=== PATIENT | female | born 1980 | race Caucasian/White ===

== ENCOUNTER 2020-07-04 13:03 | Outpatient (RCR) | payer BC, MEDICAID, SELFPAY ==
[2020-07-04 13:38] LABS: Hemoglobin 12.4 g/dL (12.0-15.0)
[2020-07-05 11:13] LABS: Rapid Plasma Reagin Non-Reactive (NonReactive)
[2020-07-05] MEDS: RHO(D) IMMUNE GLOBULIN 300 MCG SYRINGE IM (11:22)
== END 2020-10-02 23:59 | disposition home or self-care (01) ==
LOC: ANHLAB 13:03
PROVIDERS: Visit Provider Obstetrics & Gynecology
DX: Z29.13 Encounter for prophylactic Rho(D) immune globulin (principal); O36.0130 Maternal care for anti-D [Rh] antibodies, third trimester, not applicable or unspecified; Z3A.00 Weeks of gestation of pregnancy not specified
CPT/HCPCS: 36415; 85014; 85018; 85461; 86592; 90384; 96372; J2790

== ENCOUNTER 2020-09-20 11:01 | Inpatient (IN) | payer BC, MEDICAID, SELFPAY ==
[2020-09-20] VITALS (9 sets, daily range): BP systolic 128–145; BP diastolic 64–88; PULSE 62–78; RESP 16; TEMP 36.8–37.3; O2SAT 97–99; BMI 39.1
--- NOTE | 2020-09-20 12:10 | LDADM ---
This patient, Augusta Mccarthy, was admitted to Labor/Delivery/Recovery 104 on 09/20/20 at 11:01. Plans for labor, pain management and were discussed with patient. Patient/family oriented to hospital policies and general routines including ID bracelet, bed and alarms, visiting hours, pain management, procedures, bathroom and other care routines, personal items, smoking policy, room service/diet and guest tray routines, infant security routines, call light, and visiting hours. Patient/Family are encouraged to report perceived risks to care and to ask questions if they do not understand what they are told or what they should do. See OBIX for further documentation.
[2020-09-20 12:13] LABS: Basophils Percent Auto 0.4 % (0.2-1.2); Eosinophils Absolute Auto 0.2 K/mm3 (0-0.3); Eosinophils Percent Auto 1.4 % (0-4.4); Hematocrit 42.3 % (37.0-47.0); Hemoglobin 14.1 g/dL (12.0-15.0); Immature Granulocyte Absolute 0.06 K/mm3 (0.00-0.031); Immature Granulocyte Percent A 0.6 % (0-0.5); Lymphocytes Absolute Auto 1.49 K/mm3 (0.9-3.2); Lymphocytes Percent Auto 13.8 % (18.3-44.2); Mean Corpuscular HGB Conc 33.3 g/dl (32-36); Mean Corpuscular Hemoglobin 29.6 pg (26-34); Mean Corpuscular Volume 88.7 fl (80-100); Mean Platelet Volume 10.4 fl (7.4-10.4); Monocytes Absolute Auto 0.8 K/mm3 (0.1-0.6); Monocytes Percent Auto 7.8 % (2.6-8.5); Neutrophils Absolute Auto 8.2 K/mm3 (1.3-6.7); Platelet Count Result 242 k/mm3 (150-375); Red Blood Count 4.77 M/mm3 (4.2-5.4); Red Cell Distribution Width 13.9 % (11.5-14.5); White Blood Count 10.8 K/mm3 (4.5-10.0)
[2020-09-20] MEDS: OXYTOCIN 30 UNITS/NS 500 ML 30 UNITS/500 ML BAG 999 UNITS IV CONT (12:44)
--- NOTE | 2020-09-20 12:51 | PM.OBPRVD ---
OB - Delivery Note Procedure Delivery date: 09/20/20 Procedure: vaginal delivery Intrapartal events: Precipitous Labor < 3 hours Induction method: none Delivery augmentation: rupture of membranes Delivery monitor: external FHT and external uterine Route of delivery: Episiotomy description: None Laceration Description: None Specimen: No Quantitative Blood Loss (ml): 96 Anesthesia type: None Disposition: other () [place] Baby Date of : 09/20/20 Time of : 12:41 Weeks of gestation at delivery: 39 gender: Female Weight (pounds): 6 Weight (ounces): 5 presentation: vertex position: Left Occiput Anterior Placenta delivery description: Spontaneous cord vessel description: 3 Vessels and Clamped/Cut score one minute: 8 score five minutes: 9 Narrative: LUZ, compound presentation with posterior arm up near face, delivered posterior arm and the rest of baby easily delivered mother and baby in stable condition
[2020-09-20] MEDS: OXYTOCIN 30 UNITS/NS 500 ML 30 UNITS/500 ML BAG 125 UNITS IV CONT (13:06)
[2020-09-20] MEDS: IBUPROFEN 600 MG TABLET PO (13:08)
--- NOTE | 2020-09-20 15:30 | PC.NURSE ---
Patient transferred to post room #285 via wheelchair. Support person present. Oriented to unit, room, information board, rooming in, admission packet and security measures. Patient verbalizes understanding.
[2020-09-21 06:20] LABS: Hematocrit 36.7 % (37.0-47.0); Hemoglobin 12.2 g/dL (12.0-15.0)
[2020-09-21] MEDS: LEVOTHYROXINE SODIUM 88 MCG TABLET PO (06:54)
[2020-09-21 07:15] VITALS: BP 121/75; PULSE 69; RESP 16; TEMP 36.7; O2SAT 98
[2020-09-21] MEDS: MULTIVIT/MIN/PREN/FOL AC/IRON TABLET 1 TAB PO (07:56)
[2020-09-21] MEDS: CYANOCOBALAMIN 1,000 MCG TABLET 5000 MCG PO (07:57)
[2020-09-21] MEDS: valACYclovir HCL 500 MG TABLET 1000 MG PO (07:58)
[2020-09-21] MEDS: IBUPROFEN 600 MG TABLET PO ×2 (12:40→20:28)
[2020-09-21] MEDS: RHO(D) IMMUNE GLOBULIN 300 MCG SYRINGE IM (16:30)
[2020-09-21 19:55] VITALS: BP 146/82; PULSE 66; RESP 16; TEMP 36.7; O2SAT 99
--- NOTE | 2020-09-22 05:06 | PC.NURSE ---
09/21/2020 @ 1999 Patient viewed the discharge video Mother & Baby Care, The First Two Weeks . Patient was given the opportunity and encouraged to ask questions. Patient verbalized understanding of information shared and has been given the mother/baby guide for home reference.
[2020-09-22 07:11] VITALS: BP 120/68; PULSE 70; RESP 16; TEMP 36.4; O2SAT 98
[2020-09-22] MEDS: LEVOTHYROXINE SODIUM 88 MCG TABLET PO (07:11)
[2020-09-22] MEDS: MULTIVIT/MIN/PREN/FOL AC/IRON TABLET 1 TAB PO (07:12)
[2020-09-22] MEDS: DOCUSATE SODIUM 100 MG CAPSULE PO (07:12)
[2020-09-22] MEDS: valACYclovir HCL 500 MG TABLET 1000 MG PO (07:14)
--- NOTE | 2020-09-22 10:55 | PM.OBPNVD ---
OB - PN: Subj Subjective Date/time seen: 09/22/20 10:55 Patient comments: no complaints baby status: doing well OB - PN: Obj Data Labs CBC & Chem 7: 09/21/20 03:40 OB - PN A/P Plan day: 2 Plan: routine care and discharge home (F/U in 1 week for bp check) Comments: No history of hypertension however she has had a few slightly elevated blood pressures. No symptoms. PIH precautions given. Return to office in 1 week for bp check. Time Spent With Patient Time: Total time spent is greater than 50% in coordination of care (as documented) at patient's floor/unit and/or counseling patient: Time with patient: less than 15 minutes Review of Systems Review of Systems: All systems reviewed & are unremarkable except as noted in HPI and below Exam Narrative: Exam Narrative: Fundus firm and vaginal flow controlled. No lower ext redness, warmth, or edema. Negative homans. Denies h/a, v/d or e/p. Reflexes normal. Const: General: comfortable Chest: Breast/axilla inspection: normal inspection of the breasts Resp: Effort & Inspection: normal respiratory effort Cardio: Rate: regular rate GI: GI Palp: Yes Soft to palpation Psych: Appearance: grossly normal Affect: normal affect Attitude: cooperative Thought content: Yes Normal thought content present Judgement: Good judgement present (Psych)
--- NOTE | 2020-09-22 11:18 | P.DS_ITS ---
DS: Admitting Diagnosis Admitting Diagnosis Admitting Diagnosis: Contractions OB - DS: Summary OB Procedures : None OB Procedures Intrapartum: Spontaneous Vag Delivery OB Procedures: : None Time Spent with Patient Time attestation: Total time spent providing and/or coordinating discharge services: Discharge Plan Discharge Attending physician on discharge: Kamille Frausto Discharging Clinician: Kamille Frausto Patient Disposition: Home, Self-Care Activity: pelvic rest Diet: as tolerated Patient Instructions: Antibiotic Form Stand Alone Forms: General Discharge Information Follow-up/Referrals: Debbi Diaz CNM [Certified Nurse Refractory Grinder Operator] - Discharge Medications: Continued valacyclovir 1 gram Tablet 1,000 mg PO DAILY RF: 0 levothyroxine 88 mcg Tablet 88 mcg PO DAILY RF: 0 #2 Tablet 1 tablet PO DAILY RF: 0 mecobalamin (vitamin B12) 5,000 mcg Tablet,Disintegrating 5,000 mcg PO RF: 0 Date of admission: 09/20/20 11:01 Primary Care Provider: PHYSICIAN,AREA REPRESENTATIVE Admitting Provider: Cari Morales Attending physician on admission: Cari Morales Condition: Stable
[2020-09-23 09:35] VITALS: BP 141/73; PULSE 82; RESP 20; TEMP 36.9; O2SAT 100
[2020-09-23 12:07] LABS: Rapid Plasma Reagin Non-Reactive (NonReactive)
== END 2020-09-22 12:36 | disposition home or self-care (01) | DRG 807 ==
LOC: ANHLDR 11:34 → ANHOB2 15:36
PROVIDERS: Advanced Practice Midwife; Admitting Provider Obstetrics & Gynecology; Visit Provider Obstetrics & Gynecology
DX: O62.3 Precipitate labor (principal); Z37.0 Single live birth; O32.6XX0 Maternal care for compound presentation, not applicable or unspecified; Z3A.39 39 weeks gestation of pregnancy
CPT/HCPCS: 36415; 85014; 85018; 85025; 85461; 86592; 86850; 86900; 86901; 90384; A9270; J2590; J2790

== ENCOUNTER 2024-09-11 16:19 | Emergency (ER) | payer BC, MEDICAID, SELFPAY ==
[2024-09-11 16:31] VITALS: BP 121/77; PULSE 81; RESP 18; TEMP 36.8; O2SAT 100
--- NOTE | 2024-09-11 16:57 | ED_ITS ---
HPI - Female Genitourinary General Chief complaint: Urogenital-Female Stated complaint: uti symptoms and cold Time Seen by Provider: 09/11/24 16:20 Source: patient Mode of arrival: ambulatory Limitations: no limitations History of Present Illness HPI Narrative: Patient is a 44-year-old female who presents with 1 week of malodorous her, cloudy and burning with urination. Also has intermittent right lower back pain. Also had congestion since Wednesday with fever of 100.7. Has not taken anything for upper respiratory symptoms. Denies any sore throat, cough, nausea, vomiting, diarrhea. MD elicited complaint: dysuria Related Data Home Medications Medication Instructions Recorded Confirmed levothyroxine 88 mcg tablet 88 mcg PO DAILY 09/09/20 09/11/24 valacyclovir 1 gram tablet 1,000 mg PO DAILY 09/09/20 09/11/24 olmesartan 5 mg tablet 5 mg DAILY 09/11/24 09/11/24 phentermine 15 mg capsule 15 mg DAILY 09/11/24 09/11/24 Allergies Allergy/AdvReac Type Severity Reaction Status Date / Time latex Allergy Mild Rash Verified 09/11/24 16:41 Penicillins Allergy Mild Hives / Verified 09/11/24 16:41 Red Face Sulfa (Sulfonamide Allergy Mild Rash Verified 09/11/24 16:41 Antibiotics) penicillin G Allergy Unknown Unknown Verified 09/11/24 16:41 Review of Systems Review of Systems: All systems reviewed & are unremarkable except as noted in HPI and below Constitutional: Constitutional: Denies chills, Denies fever(s), Denies headache(s), Denies malaise and Denies weakness Eyes: Eyes: Denies change in vision, Denies eye discharge and Denies irritation ENT: Denies otalgia, Denies headache(s), Reports nasal congestion, Denies nasal discharge, Denies sinus pain and Denies sore throat Cardiovascular: Cardiovascular: Denies chest pain, Denies edema, Denies palpitations and Denies dyspnea Respiratory: Respiratory: Denies cough and Denies dyspnea Gastrointestinal: Gastrointestinal: Denies abdominal pain, Denies diarrhea, Denies nausea and Denies vomiting Genitourinary: Genitourinary: Denies hematuria, Reports dysuria and Denies fla nk pain Musculoskeletal: Musculoskeletal: Denies back pain and Denies numbness Integumentary/Breasts: Skin/Breast: Denies pruritus and Denies rash Neurologic: Denies headache(s), Denies numbness and Denies weakness Psychiatric: Psychiatric: Reports no additional psychiatric complaints Endocrine: Endocrine: Denies palpitations PMFSH Family History Family History Mother Hypertension Father High cholesterol Daughter MRSA (methicillin resistant Staphylococcus aureus) Mother Patient's mother is in good health Cerebrovascular accident Father Patient's father is in good health Sibling Patient's brother is in good health Social History Social History Smoking status: Never smoker Alcohol intake: never Substance use: never Do You Feel Safe in your Home?: Yes Lack of Transportation: No Lack of Food: Sometimes True Current Housing: I Have Housing Concerned About Future Housing: No Difficulty Paying Gas/Electric Bills: YES Difficulty Paying for Meds: No Currently Unemployed: No Education: High School Diploma/GED Difficulty w/ Childcare or Family Care: No Living arrangements: with family Gender identity (if verbalized by the patient): Female Sexual Orientation (if Verbalized by the Patient): Straight or Heterosexual Spiritual care concerns: No Comments At time of signature, agree with nursing past medical, surgical, social and family history. There is no relevant family history pertinent to the presenting complaint. Exam Const: General: cooperative, healthy appearing, comfortable, no acute distress and well nourished Nutritional Appearance: well nourished Orientation/consciousness: patient oriented x3 HENMT: Head: normocephalic and atraumatic Ears: external ears normal Face/Nose/Sinus: Normal external nose present, Normal nares present and normal facial exam Face and sinus: normal facial exam Eyes: General: appearance normal, both eyes and all related structures Pupils: Equal, round and reactive pupils present EOM: EOMs intact bilaterally Neck: Neck: normal visual inspection, full ROM and supple Chest: Chest palpation & inspection: normal inspection of the chest Resp: Effort & Inspection: normal respiratory effort and able to speak in complete sentences Cardio: Rate: regular rate Rhythm: regular rhythm GI: Inspection: normal to inspection GI Palp: No abdominal tenderness and Yes Soft to palpation : General: Yes no CVA tenderness Back/Spine/Pelvis: Back: no CVA tenderness Skin: General skin exam: normal color and no rashes or lesions noted Neuro: General: patient oriented x3 and moves all extremities Cranial nerves: Yes Equal, round and reactive pupils present Extrem: General: normal to inspection and full ROM Psych: Appearance: grossly normal and well kempt Course Course Emergency Course: Patient is aware of diagnosis, understands and agrees to treatment plan. Anticipatory guidance given. Patient agrees to follow-up as directed and is aware of reasons to seek care at the emergency department. Portions of this record may have been created with voice recognition software Level of Care: Express Care Visit Vital Signs Vital signs: Vital Signs Temperature 36.8 C 09/11/24 16:31 Pulse Rate 81 09/11/24 16:31 Respiratory Rate 18 09/11/24 16:31 Blood Pressure 121/77 09/11/24 16:31 Pulse Oximetry 100 09/11/24 16:31 Oxygen Delivery Room Air 09/11/24 16:31 Temperature 36.8 C 09/11/24 16:31 Pulse Rate 81 09/11/24 16:31 Respiratory Rate 18 09/11/24 16:31 Blood Pressure 121/77 09/11/24 16:31 Pulse Oximetry 100 09/11/24 16:31 Oxygen Delivery Room Air 09/11/24 16:31 Reviewed MDM - Female Genitourinary MDM Narrative Medical decision making narrative: Exam findings and UA show probable UTI; patient is non-toxic appearing and is in no distress. No CMT, adnexal tenderness, or evidence of pelvic etiology. Patient is appropriate for outpatient treatment and follow-up. Differential Diagnosis Differential diagnosis: Likely urinary tract infection, bacterial vaginosis, trichomoniasis, cervicitis, vaginitis and cystitis Medical Records Attestation: I reviewed the patient's medical records. Lab Data Attestation: I reviewed the patient's lab results. Labs: Lab Results 09/11/24 Range/Units 17:06 POC Urine Color Yellow POC Urine Clarity Cloudy POC Urine pH 6.0 POC Ur Specif [place] 1.015 POC Urine Protein 1+ (Negative) POC Ur Glucose (UA) Negative (Negative) POC Urine Ketones Negative (Negative) POC Urine Blood 2+ (Negative) POC Urine Nitrite Negative (Negative) POC Urine Bilirubin Negative (Negative) POC Urine Urobilinogen 0.2 POC U Leukocyte Esteras 2+ (Negative) Discharge Plan Discharge Clinical Impression: Urinary tract infection Qualifiers: Urinary tract infection type: acute cystitis Hematuria presence: with hematuria Qualified Code(s): N30.01 - Acute cystitis with hematuria Patient Disposition: Home, Self-Care Condition: Stable Instructions: Urinary Tract Infection in Women (ED) Additional Instructions: We will send a urine culture to the lab, based on your symptoms and urine dip we will start treatment today. If culture comes back and bacteria is not susceptible to antibiotic, your prescription may change. Your symptoms should improve within a day of starting antibiotics, but you should finish all the antibiotic pills you get. Otherwise your infection might come back Continue with increased water intake. Take Tylenol or ibuprofen as needed for pain or fever. Follow-up with primary care provider for urine recheck or see ER visit if condition worsens with high fever, nausea, vomiting, severe back pain Prescriptions: New cefdinir 300 mg capsule 300 mg PO Q12H 7 Days Qty: 14 0RF No Action phentermine 15 mg capsule 15 mg DAILY olmesartan 5 mg tablet 5 mg DAILY valacyclovir 1 gram Tablet 1,000 mg PO DAILY levothyroxine 88 mcg Tablet 88 mcg PO DAILY Follow-up/Referrals: UNKNOWN,DOCTOR [Primary Care Provider] - Time of Disposition: 17:03
[2024-09-11 17:10] LABS: EDUAAPPEAR Cloudy; EDUABILI Negative (Negative); EDUABLOOD 2+ (Negative); EDUACOLOR1 Yellow; EDUAGLUCOSE Negative (Negative); EDUAKETONE Negative (Negative); EDUALEUKO 2+ (Negative); EDUANITRATE Negative (Negative); EDUAPROTEIN 1+ (Negative); EDUASPGRAVITY 1.015; EDUAUROBILI 0.2
== END 2024-09-11 17:06 | disposition home or self-care (01) ==
PROVIDERS: Emergency Provider Nurse Practitioner Family
DX: N30.01 Acute cystitis with hematuria (principal); B96.89 Other specified bacterial agents as the cause of diseases classified elsewhere
CPT/HCPCS: 81003; 87086; 99213; G0463

== ENCOUNTER 2024-12-15 13:37 | Emergency (ER) | payer BC, MEDICAID, SELFPAY ==
--- NOTE | 2024-12-15 13:40 | ED_ITS ---
HPI - Female Genitourinary General Chief complaint: Urogenital-Female Stated complaint: uti Time Seen by Provider: 12/15/24 13:40 Source: patient Mode of arrival: ambulatory Limitations: no limitations History of Present Illness HPI Narrative: Patient is a 44-year-old female who presents with cloudy urine, burning with urination and urgency that started last night. Patient had UTI in September. Denies any low back pain, fever, chills, nausea, vomiting, diarrhea. MD elicited complaint: dysuria Related Data Home Medications ?Medication ?Instructions ?Recorded ?Confirmed ?Last Taken ?Type levothyroxine 88 mcg tablet 88 mcg PO DAILY 09/09/20 09/11/24 09/09/20 08:00 History valacyclovir 1 gram tablet 1,000 mg PO DAILY 09/09/20 09/11/24 09/08/20 12:00 History olmesartan 5 mg tablet 5 mg DAILY 09/11/24 09/11/24 Unknown History phentermine 15 mg capsule 15 mg DAILY 09/11/24 09/11/24 Unknown History Allergies Allergy/AdvReac Type Severity Reaction Status Date / Time latex Allergy Mild Rash Verified 12/15/24 13:58 Penicillins Allergy Mild Hives / Verified 12/15/24 13:58 Red Face Sulfa (Sulfonamide Allergy Mild Rash Verified 12/15/24 13:58 Antibiotics) Review of Systems Review of Systems: All systems reviewed & are unremarkable except as noted in HPI and below Constitutional: Constitutional: Denies chills, Denies fever(s), Denies h eadache(s), Denies malaise and Denies weakness Eyes: Eyes: Denies change in vision, Denies eye discharge and Denies irritation ENT: Denies otalgia, Denies headache(s), Denies nasal congestion, Denies nasal discharge, Denies sinus pain and Denies sore throat Cardiovascular: Cardiovascular: Denies chest pain, Denies edema, Denies palpitations and Denies dyspnea Respiratory: Respiratory: Denies cough and Denies dyspnea Gastrointestinal: Gastrointestinal: Denies abdominal pain, Denies diarrhea, Denies nausea and Denies vomiting Genitourinary: Genitourinary: Denies hematuria, Reports nocturia, Reports dysuria, Denies flank pain and Reports urinary urgency Musculoskeletal: Musculoskeletal: Denies back pain and Denies numbness Integumentary/Breasts: Skin/Breast: Denies pruritus and Denies rash Neurologic: Denies headache(s), Denies numbness and Denies weakness Psychiatric: Psychiatric: Reports no additional psychiatric complaints Endocrine: Endocrine: Denies palpitations PMFSH Family History Family History Mother Hypertension Father High cholesterol Daughter MRSA (methicillin resistant Staphylococcus aureus) Mother Patient's mother is in good health Cerebrovascular accident Father Patient's father is in good health Sibling Patient's brother is in good health Social History Social History Smoking status: Never smoker Alcohol intake: never Substance use: never Do You Feel Safe in your Home?: Yes Lack of Transportation: No Lack of Food: Sometimes True Current Housing: I Have Housing Concerned About Future Housing: No Difficulty Paying Gas/Electric Bills: YES Difficulty Paying for Meds: No Currently Unemployed: No Education: High School Diploma/GED Difficulty w/ Childcare or Family Care: No Living arrangements: with family Gender identity (if verbalized by the patient): Female Sexual Orientation (if Verbalized by the Patient): Straight or Heterosexual Spiritual care concerns: No Comments At time of signature, agree with nursing past medical, surgical, social and family history. There is no relevant family history pertinent to the presenting complaint. Exam Const: General: cooperative, healthy appearing, comfortable, no acute distress and well nourished Nutritional Appearance: well nourished Orientation/consciousness: patient oriented x3 HENMT: Head: normocephalic and atraumatic Ears: external ears normal Face/Nose/Sinus: Normal external nose present, Normal nares present and normal facial exam Face and sinus: normal facial exam Eyes: General: appearance normal, both eyes and all related structures Pupils: Equal, round and reactive pupils present EOM: EOMs intact bilaterally Neck: Neck: normal visual inspection, full ROM and supple Chest: Chest palpation & inspection: normal inspection of the chest Resp: Effort & Inspection: normal respiratory effort and able to speak in complete sentences Cardio: Rate: regular rate Rhythm: regular rhythm GI: Inspection: normal to inspection GI Palp: No abdominal tenderness and Yes Soft to palpation : General: Yes no CVA tenderness Back/Spine/Pelvis: Back: no CVA tenderness Skin: General skin exam: normal color and no rashes or lesions noted Neuro: General: patient oriented x3 and moves all extremities Cranial nerves: Yes Equal, round and reactive pupils present Extrem: General: normal to inspection and full ROM Psych: Appearance: grossly normal and well kempt Course Course Emergency Course: Patient is aware of diagnosis, understands and agrees to treatment plan. Anticipatory guidance given. Patient agrees to follow-up as directed and is aware of reasons to seek care at the emergency department. Portions of this record may have been created with voice recognition software Level of Care: Express Care Visit Vital Signs Vital signs: Vital Signs Temperature 36.7 C 12/15/24 13:51 Pulse Rate 82 12/15/24 13:51 Respiratory Rate 16 12/15/24 13:51 Blood Pressure 132/82 12/15/24 13:51 Pulse Oximetry 100 12/15/24 13:51 Oxygen Delivery Room Air 12/15/24 13:51 Temperature 36.7 C 12/15/24 13:51 Pulse Rate 82 12/15/24 13:51 Respiratory Rate 16 12/15/24 13:51 Blood Pressure 132/82 12/15/24 13:51 Pulse Oximetry 100 12/15/24 13:51 Oxygen Delivery Room Air 12/15/24 13:51 Reviewed MDM - Female Genitourinary MDM Narrative Medical decision making narrative: Exam findings and UA show probable UTI; patient is non-toxic appearing and is in no distress. No CMT, adnexal tenderness, or evidence of pelvic etiology. Patient is appropriate for outpatient treatment and follow-up. Differential Diagnosis Differential diagnosis: Likely urinary tract infection, bacterial vaginosis, trichomoniasis, cervicitis, vaginitis and cystitis Medical Records Attestation: I reviewed the patient's medical records. Lab Data Attestation: I reviewed the patient's lab results. Labs: Lab Results 12/15/24 Range/Units 14:23 POC Urine Color Yellow POC Urine Clarity Cloudy POC Urine pH 5.5 POC Ur Specif [place] 1.010 POC Urine Protein Negative (Negative) POC Ur Glucose (UA) Negative (Negative) POC Urine Ketones Negative (Negative) POC Urine Blood Negative (Negative) POC Urine Nitrite Negative (Negative) POC Urine Bilirubin Negative (Negative) POC Urine Urobilinogen 0.2 POC U Leukocyte Esteras 2+ (Negative) Discharge Plan Discharge Clinical Impression: Urinary tract infection Qualifiers: Urinary tract infection type: acute cystitis Hematuria presence: without hematuria Qualified Code(s): N30.00 - Acute cystitis without hematuria Patient Disposition: Home, Self-Care Condition: Stable Instructions: Urinary Tract Infection in Women (ED) Additional Instructions: We will send a urine culture to the lab, based on your symptoms and urine dip we will start treatment today. If culture comes back and bacteria is not susceptible to antibiotic, your prescription may change. Your symptoms should improve within a day of starting antibiotics, but you should finish all the antibiotic pills you get. Otherwise your infection might come back Continue with increased water intake. Take Tylenol or ibuprofen as needed for pain or fever. Follow-up with primary care provider for urine recheck or see ER visit if condition worsens with high fever, nausea, vomiting, severe back pain Patient Language: Czech Prescriptions: New nitrofurantoin monohyd/m-cryst 100 mg capsule 100 mg PO Q12H 5 Days Qty: 10 0RF Rx Instructions: must administer with a meal/food No Action phentermine 15 mg capsule 15 mg DAILY olmesartan 5 mg tablet 5 mg DAILY cefdinir 300 mg capsule 300 mg PO Q12H 7 Days Qty: 14 0RF valacyclovir 1 gram Tablet 1,000 mg PO DAILY levothyroxine 88 mcg Tablet 88 mcg PO DAILY Follow-up/Referrals: Michael,ALANA Saez [Primary Care Provider] - 3 Days Time of Disposition: 14:39
[2024-12-15 13:51] VITALS: BP 132/82; PULSE 82; RESP 16; TEMP 36.7; O2SAT 100
--- OUTSIDE RECORDS SUMMARY | 2024-12-15 13:53 | XMS_ITS | Encounter Summary ---
Author Organization [facility] Address [address] [place] [id number] Care Team Providers Care Whiteprinting Machine Operator Name Role Phone Nadja Rodriguez [facility] Primary Care Provider [phone] Encounter Details Date Type Department Care Team (Late st Contact Info) Description 01/19/2024 MyChart Message Enc [address] [place] [address] Nadja Rodriguez, [place] [address] [place] [phone] Mentally tired Social History Tobacco Use Types Packs/Day Years Used Date Smoking Tobacco: Never Smokeless Tobacco: Never Alcohol Use Standard Drinks/Week Comments Never 0 (1 standard drink = 0.6 oz pur e alcohol) AUDIT-C Answer Date Recorded Q1: How often do you have a drink containing alc ohol? 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 OPERATOR Sexual Orientation Not on file documented as of this encounter Plan of Treatment Upcoming Encounters Date Type Department Care Team (Late st Contact Info) Description 01/22/2025 1:20 PM CDT Office Visit [facility] [address] [place] [address] Nadja Rodriguez FNP [address] [place] [phone] documented as of this encounter Visit Diagnoses Not on filedocumented in this encounter Care Teams Whiteprinting Machine Operator Relationship Specialty Start Date End Date Nadja Rodriguez FNP [address] [place], [place] [phone] PCP - General Nurse Practitioner Family 11/12/20 documented as of this encounter
--- OUTSIDE RECORDS SUMMARY | 2024-12-15 13:53 | XMS_ITS | Encounter Summary ---
Author Organization [facility] Address [address] [place] [address] Care Team Providers Care Air Traffic Control Specialist Name Role Phone RosyNadja perez [facility] Primary Care Provider [phone] [phone] Encounter Details Date Type Department Care Team (Late st Contact Info) Description 12/15/2024 Orders Only [facility] [address] [place] [address] Cindy Zaragoza, JOINT TERMINAL ATTACK CONTROLLER Social History Tobacco Use Types Packs/Day Years [...] Answer Date Recorded Patient Health Questionnaire-2 Score 1 11/23/2024 Hunger Vital Sign Answer Date Recorded Within the past 12 months, y ou worried that your food would run out before you got the money to buy more. Never true 08/23/20 24 Within the past 12 months, t he food you bought just didn't last and you didn't have money to get more. Never true 08/23/2024 Comments No Sex and Gender Information Value Date Recorded Sex Assigned at Female 12/13/2023 10:05 AM CREW TRUCK DRIVER Legal Sex Female 12:24 AM CDT Gender Identity Female 12/13/2023 10:05 AM CREW TRUCK DRIVER Sexual Orientation Not on file documented as of this encounter Plan of Treatment Upcoming Encounters Date Type Department Care Team (Late st Contact Info) Description 01/22/2025 1:20 PM CDT Office Visit [facility] [address] [facility] [address] [address] [place] [id number] Nadja Rodriguez FNP [address] [place] [phone] documented as of this encounter Visit Diagnoses Diagnosis Hypothyroidism, unspecified type documented in this encounter Care Teams Air Traffic Control Specialist Relationship Specialty Start Date End Date Nadja Rodriguez FNP [facility] [address] [place], [place] [id number] PCP - General Nurse Practitioner Family 11/12/20 documented as of this encounter
--- OUTSIDE RECORDS SUMMARY | 2024-12-15 13:53 | XMS_ITS | Encounter Summary ---
Author Organization [facility] Address [address] [place] [address] Care Team Providers Care Data Center Project Manager Name Role Phone Nadja Rodriguez [facility] Primary Care Provider [phone] [phone] Encounter Details Date Type Department Care Team (Late st Contact Info) Description 09/22/2023 MyChart Message Enc [facility] [address] [place] [address] Nadja Rodriguez, [facility] [address] [place], [place] [phone] Stinky urin smell Social History Tobacco Use Types Packs/Day Years [...] Date Recorded Patient Health Questionnaire-2 Score 0 11/18/2022 Comments No Sex and Gender Information Value Date Recorded Sex Assigned at Female 12/13/2023 10:05 AM PACKAGE WRAPPER Legal Sex Female 12:24 AM CDT Gender Identity Female 12/13/2023 10:05 AM PACKAGE WRAPPER Sexual Orientation Not on file documented as of this encounter Plan of Treatment Upcoming Encounters Date Type Department Care Team (Late Contact Info) Description 01/22/2025 1:20 PM CDT Office Visit [facility] [address] [place] [address] Nadja Rodriguez FNP [address] [place] [phone] documented as of this encounter Visit Diagnoses Not on filedocumented in this encounter Care Teams Data Center Project Manager Relationship Specialty Start Date End Date Nadja Rodriguez FNP [address] [place] [address] [place] [address] PCP - General Nurse Practitioner Family 11/12/20 documented as of this encounter
--- OUTSIDE RECORDS SUMMARY | 2024-12-15 13:53 | XMS_ITS | Encounter Summary ---
Author Organization [facility] Address [address] [place] [address] Care Team Providers Care Truck Loader And Unloader Name Role Phone Nadja Rodriguez [facility] Primary Care Provider [phone] [phone] Encounter Details Date Type Department Care Team (Late st Contact Info) Description 05/31/2023 MyChart Message Enc [address] [place] [address] Nadja Rodriguez, [place] [address] [place] [phone] Exercise Social History Tobacco Use Types Packs/Day Years [...] Sex Assigned at Female 12/13/2023 10:05 AM STUDIO HAND Legal Sex Female 12:24 AM CDT Gender Identity Female 12/13/2023 10:05 AM STUDIO HAND Sexual Orientation Not on file documented as of this encounter Plan of Treatment Upcoming Encounters Date Type Department Care Team (Late st Contact Info) Description 01/22/2025 1:20 PM CDT Office Visit On license of [facility] [address] [place] [address] aNdja Rodriguez FNP [address] [place] [phone] documented as of this encounter Visit Diagnoses Not on filedocumented in this encounter Care Teams Truck Loader And Unloader Relationship Specialty Start Date End Date Nadja Rodriguez FNP [facility] [place] [address] PCP - General Nurse Practitioner Family 11/12/20 documented as of this encounter
--- OUTSIDE RECORDS SUMMARY | 2024-12-15 13:53 | XMS_ITS | Referral Summary ---
Author Organization [facility] [employer] Address [address] [place] [address] Care Team Providers Care Packing Line Operator Name Role Phone Unavailable Primary Care Provider Unavailabl e Source Comments [facility] [employer],non-owned Affiliates and Associated Physician Practices is amultiple site organization consisting of ambulatory clinics and hospital sitesin [place], [place], [place] and [place]. This disclosure is being madepursuant to the Care Everywhere program and may not contain all information available regarding this patient. Last updated 18.[facility] [employer] Allergies Active Allergy Reactions Criticality Noted Date Comments Latex Rash Low 09/22/2013 Penicillins Rash Low 09/22/2013 Sulfa Drugs Rash Low 09/22/2013 Medications * Be aware that medications may not be up to date on this document. Alwaysverify current medications with the patient. Medication Sig Dispensed Refills Start Date End Date Status levothyroxine (SYNTHROID) 50 MCG tablet Take 50 mcg by mouth daily before breakfast. Active Active Problems Problem Noted Date Diagnosed Date complicated by cer vical shortening in second trimester 05/20/2020 Overview (05/20/2020): Cervix 2.5mm on outside scan. Supervision of other high-risk 013 Overview (08/18/2015): Resolved Problems Problem Noted Date Diagnosed Date Resolved Date abnormality in pregnan cy- Unilateral left ventriculomegaly 09/27/2013 11/20/2013 Overview (10/12/2013): Images from the original note were not included. HALF-WAY PATIENT--PLEASE CALL [phone] IF TRIAGED OR ADMITTED THIS CARE PLAN IS BASED ON EVALUATION, SUBJECT TO CHANGE BASED ON ASSESSMENT. 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 Planned surveillance: Repeat ultrasound on 10.27.13 [place] [facility] [place] Planned delivery location: [facility] Planned [place] at delivery: Term Planned mode of delivery: TBD- Hx of x2 Care Provider: Dr. Adeline Giraldo [place] [facility] [place] consultants involved: [facility]- Larry; Neurology- Niall; Neurosurgery- Yves; Neonatology- Dontrell; Genetics- Lorene; Label Fuser Tender- Elbert care needed at : evaluation Planned care after delivery: per 09.28 Neonatology consult Per 09.28 Neurology consult Given the abnormality of the corpus callosum, I suspect this is brain malformation that is most likely, but we will need to confirm this with a infantile brain MRI scan Genetics note: genetic diagnostic testing was not performed. Please request Genetics consult postnatally if clinically indicated and/or prior to ordering genetic studies by calling Dr. Myles Briceño at [phone]. Social Service Note: There are no social service concerns identified at this time Beef Cattle Farm Worker: Dr. Macy Cuevas ([place], [place]) *For further coordination, please refer to the consulting physician s notes for management of the * abnormality affecting management of mother, antepartum condition or complication 07/11/2013 05/20/2020 Overview (07/11/2015): Abnormal spine on ultrasound Encounter for supervision of other normal 07/07/2013 07/11/2013 Overview (08/18/2015): Patient was born with spina bifida 05/30/2013 05/20/2020 Social History Tobacco Use Types Packs/Day Years Used Date Smoking Tobacco: Never Alcohol Use Standard Drinks/Week Comments No 0 (1 standard drink = 0.6 oz pur e alcohol) Sex and Gender Information Value Date Recorded Sex Assigned at Not on file Gender Identity Not on file Sexual Orientation Not on file Last Filed Vital Signs Vital Sign Reading Time Taken Comments Blood Pressure 135/83 09/28/2013 10:35 AM MACHINE FANCY STITCHER Pulse 96 09/28/2013 10:35 AM MACHINE FANCY STITCHER Temperature 36.1 C (96.9 F) 06/11/2020 10:07 AM CDT Respiratory Rate - - Oxygen Saturation - - Inhaled Oxygen Concentration - - Weight 87.5 kg (193 lb) 09/28/2013 10:35 AM MACHINE FANCY STITCHER Height - - Body Mass Index - - Plan of Treatment Not on file
--- OUTSIDE RECORDS SUMMARY | 2024-12-15 13:53 | XMS_ITS | Clinical Summary ---
Author Organization [facility] Address [address] [place] [address] Care Team Providers Care Toddler Caregiver Name Role Phone NattymaxCristina [facility] Primary Care Provider [phone] [phone] Allergies Active Allergy Reactions Criticality Noted Date Comments Latex Rash Low 09/22/2013 Penicillins Hives 01/18/2015 Sulfa Antibiotics Itching 01/18/2015 Medications valACYclovir (VALTREX) 1 g tablet Take 1 tablet (1,000 mg total) by mouth daily. 2 Active cyclobenzaprine (FLEXERIL) 10 MG tabletIndications :Acute cystitis without hematuria,Low back pain, unspecified back pain laterality, unspecified chronicity, unspecified whether sciatica present 1/2-1 tablet po at bedtime as needed for back pain 20 tablet 4 Active Phentermine HCl 30 MG CapIndications:Cl ass 2 obesity due to excess calories without serious comorbidity with body mass index (BMI) of 35.0 to 35.9 in adult Take 30 mg by mouth daily. 30 capsule 1 5 Active levothyroxine (SYNTHROID) 75 MCG tabletIndications :Hypothyroidism, unspecified type Take 1 tablet (75 mcg total) by mouth every morning. 90 tablet 3 5 Active olmesartan (BENICAR) 5 MG tabletIndications :Primary hypertension Take 1 tablet (5 mg total) by mouth daily. 90 tablet 1 5 Active olmesartan (BENICAR) 5 MG tablet Take 1 tablet (5 mg total) by mouth daily. 4 11/23/19 25 Discontinu ed(Reorder ) levothyroxine (SYNTHROID) 75 MCG tabletIndications :Hypothyroidism, unspecified type Take 1 tablet (75 mcg total) by mouth every morning. 30 tablet 1 4 11/21/19 25 Discontinu ed(Reorder ) Phentermine HCl 30 MG CapIndications:Cl ass 2 obesity due to excess calories without serious comorbidity with body mass index (BMI) of 35.0 to 35.9 in adult Take 30 mg by mouth daily. 30 capsule 5 11/23/19 25 Discontinu ed(Reorder ) levothyroxine (SYNTHROID) 75 MCG tabletIndications :Hypothyroidism, unspecified type Take 1 tablet (75 mcg total) by mouth every morning. 30 tablet 5 12/16/19 25 Discontinu ed(Reorder ) olmesartan (BENICAR) 5 MG tabletIndications :Primary hypertension Take 1 tablet (5 mg total) by mouth daily. 90 tablet 1 5 12/16/19 25 Discontinu ed(Reorder ) Active Problems Problem Noted Date Diagnosed Date Primary hypertension 09/21/2024 Flu vaccine refused 07/11/2024 Stage 2 chronic kidney disease 04/23/2024 Prediabetes 04/24/2023 Class 2 obesity due to exces s calories without serious comorbidity with body mass index (BMI) of 35.0 to 35.9 in adult 01/20/2019 Herpes simplex 04/14/2017 Hypothyroidism 07/12/2014 Resolved Problems Problem Noted Date Diagnosed Date Resolved Date Closed fracture of ankle 07/12/201409/2019 Encounters Date Type Department Care Team Description 12/15/2024 8:45 AM SECRETARIAL STENOGRAPHER Hospital Encounter [facility] [address] [place] [address] Cristina Foss FNP Arrived 12/15/2024 Orders Only [address] [place] [address] Cindy Zaragoza LPN 12/15/2024 Orders Only [address] [place] [address] Cindy Zaragoza LPN 12/15/2024 Travel 12/06/2024 MyChart Message Enc [address] [place] [address] Cristina Foss FNP O med 12/01/[address] [place] [address] Cristina Foss FNP Lab Order 11/23/2024 1:20 PM SECRETARIAL STENOGRAPHER Office Visit [address] [place] [address] Cristina Foss FNP Follow Up (2 month follow up. ) 11/23/2024 Travel 11/21/2024 Orders Only [address] [place] [address] Cindy Zaragoza, FOREIGN LEGAL CONSULTANT 11/21/[address] [place] [address] Cristina Foss FNP Error 10/23/2024 MyChart Message Enc [address] [place] [address] Cristina Foss FNP Increase in med 09/22/2024 Orders Only [facility] [address] [place] [address] Cindy Zaragoza, FOREIGN LEGAL CONSULTANT 09/21/2024 2:21 PM SECRETARIAL STENOGRAPHER - 09/21/2024 11:59 PM SECRETARIAL STENOGRAPHER Hospital Encounter [facility] [address] [place] [address] Cristina Foss, HAND LOOM WEAVER Discharge Disposition: Home or Self Care (Routine Discharge) 09/21/2024 1:20 PM SECRETARIAL STENOGRAPHER Office Visit [address] [place] [place] [address] Cristina Foss HAND LOOM WEAVER Follow Up (2 month follow up. ) 09/21/2024 MyChart Message Enc [address] [place] [address] Cristina Foss, KEON message 09/21/2024 Travel from Last 3 Months Immunizations Name Administration Dates Next Due Dtp 06/05/1985,01/21/1982,01/14/1981 ,1980,1980 MMR 05/17/1990,11/20/1981 Opv 06/05/1985,01/21/1982,01/14/1981 ,1980,1980 Td 05/24/1995 Tdap (Generic) 02/12/2016 Family History Medical History Relation Comments Hyperlipidemia Father Heart Disease Mother Hypertension Mother Kidney Disease Mother Breast Cancer Neg Hx Relation Status Comments Brother Alive Father Alive Mother Alive Social History Tobacco Use Types Packs/Day Years Used Date Smoking Tobacco: Never Smokeless Tobacco: Never Tobacco Cessation:Counseling Given: No Alcohol Use Standard Drinks/Week Comments Never 0 [...] Sex Assigned at Female 12/13/2023 10:05 AM SECRETARIAL STENOGRAPHER Legal Sex Female 12:24 AM CDT Gender Identity Female 12/13/2023 10:05 AM SECRETARIAL STENOGRAPHER Sexual Orientation Not on file Last Filed Vital Signs Vital Sign Reading Time Taken Comments Blood Pressure 120/60 11/23/2024 1:23 PM SECRETARIAL STENOGRAPHER Pulse 100 11/23/2024 1:23 PM SECRETARIAL STENOGRAPHER Temperature 36.5 C (97.7 F) 11/23/2024 1:23 PM SECRETARIAL STENOGRAPHER Respiratory Rate 16 11/23/2024 1:23 PM SECRETARIAL STENOGRAPHER Oxygen Saturation 98% 11/23/2024 1:23 PM SECRETARIAL STENOGRAPHER Inhaled Oxygen Concentration - - Weight 84.4 kg (186 lb) 11/23/2024 1:23 PM SECRETARIAL STENOGRAPHER Height 152.4 cm (5') 11/23/2024 1:23 PM SECRETARIAL STENOGRAPHER Body Mass Index 36.33 11/23/2024 1:23 PM SECRETARIAL STENOGRAPHER Plan of Treatment Upcoming Encounters Date Type Department Care Team (Late st Contact Info) Description 01/22/2025 1:20 PM CDT Office Visit [facility] [address] [place] [address] Cristina Foss, [facility] [address] [place] [address] Health Maintenance Due Date Last Done Comments ASCVD Statin 1980 Hepatitis B Vaccines (1 of 3 - 19+ 3-dose series) 1999 ASCVD LDL 03/04/2024 03/04/2023, 04/16/2022 COVID-19 Vaccine ( season) 2024 Influenza Adult (#1) 2024 Cervical Cancer Screening Pap Smear (Age 30 to 64) Every 3 Years 10/21/2024 10/21/2021, 10/21/2021, 10/21/2021, Additional history exists Annual Physical 07/11/2025 07/11/2024 DTaP, Tdap and Td Vaccines (3 - Td or Tdap) 02/11/2026 02/12/2016, 05/24/1995, 06/05/1985, Additional history exists Mammogram Screening 05/04/2026 05/04/2024, Cervical Cancer Screening Pap with HPV Testing (Age 30 to 64) Every 5 Years 10/21/2026 10/21/2021, 10/21/2021, 10/21/2021, Additional history exists Cervical Cancer Screening with HPV 10/21/2026 Hepatitis C Completed 01/31/2021 PHQ-2 (Physician [place]) Completed 11/23/2024 HPV Vaccines Aged Out No longer eligi ble based on patient's age to complete this topic Meningococcal B Vaccine Aged Out No l onger eligible based on patient's age to complete this topic Meningococcal Vaccine Aged Out No dena kathryn eligible based on patient's age to complete this topic Pneumococcal Vaccine: Pediatrics (0 to 5 Years) and At-Risk Patients (6 to 64 Years) Aged Out No longer eligible based on patient's age to complete this topic RSV Immunizations Under 20 Months Aged Out No longer eligible based on patient's age to complete this topic Procedures Procedure Name Priority Date/Time Associated Diagnosis Comments THYROID STIM HORMONE TSH Routine 12/15/2024 8:52 AM SECRETARIAL STENOGRAPHER Hypothyroidism, unspecified type THYROID STIM HORMONE TSH Routine 09/21/2024 2:02 PM SECRETARIAL STENOGRAPHER Hypothyroidism, unspecified type MG SCREENING W EZEQUIEL NATY DIGI Routine 05/04/2024 9:09 AM CDT Encounter for screening mammogram for malignant neoplasm of breast LIPID PANEL Routine 03/04/2023 11:03 AM CDT Class 2 obesity due to excess calories without serious comorbidity with body mass index (BMI) of 39.0 to 39.9 in adult OUTSIDE CYTOPATH CERV/VAG INTERPRET (PAP) 10/21/2021 HEPATITIS C ANTIBODY Routine 01/31/2021 10:24 AM CDT Need for hepatitis C screening test OUTSIDE CYTOPATH CERV/VAG INTERPRET (PAP) (SCAN ORDER) 02/23/2020 from Last 3 Months or Most Recently Relevant to Health Maintenance Results * THYROID STIM HORMONE TSH (12/15/2024 8:52 AM SECRETARIAL STENOGRAPHER) Only the most recent of2 resultswithin the time period is included. TSH 1.837 0.358 - 3.74 uIU/ML 12/15/2024 9:26 AM SECRETARIAL STENOGRAPHER [facility] Comment: HIGH DOSES OF BIOTIN MAY INTERFERE WITH THIS TEST RESULT. CORRELATION TO CLINICAL HISTORY AND PRESENTATION RECOMMENDED. 12/15/2024 8:52 AM SECRETARIAL STENOGRAPHER us Cristina Foss HAND LOOM WEAVER LABORATORY Final Res ult [facility] [address] [place] [address], [place] [phone] * MG SCREENING W EZEQUIEL NATY DIGI (05/04/2024 9:09 AM CDT) Anatomical Region Laterality Modality Breast Bilateral Mammography 05/04/2024 10:1 8 AM CDT Impressions 05/04/2024 10:21 AM CDT =====IMPRESSION:===== No mammographic findings suggestive of malignancy ASSESSMENT: ACR BI-RADS 2 - BENIGN FINDING(S) Recommendation: 1: Routine Screening Bilateral COMMENTS: Ordered By: CRISTINA FOSS Interpreted By: Ezio Chin MD, 05/04/2024 10:18 AM Narrative 05/04/2024 10:21 AM CDT EXAMINATION: Digital bilateral screening mammogram with 3-D tomosynthesis EXAM DATE/TIME: 05/04/2024 8:58 AM REASON FOR EXAM: screening COMPARISON: Prior including May 2022. TECHNIQUE: Digital screening mammography of both breasts was performed in addition to 3-D Tomosynthesis technique. This study was read with the assistance of a computer-aided detection system. TISSUE DENSITY: There are scattered areas of fibroglandular density. FINDINGS: No suspicious masses, malignant appearing calcifications, skin thickening or other abnormalities are present. No significant change from the prior exam. Cristina Foss HAND LOOM WEAVER MAMMO Final Res ult * (ABNORMAL) LIPID PANEL (03/04/2023 11:03 AM CDT) CHOLESTEROL 175 <200.0 MG/DL 03/04/2023 11:52 AM CDT [facility] TRIGLYCERIDES 157(H) <150 MG/DL 03/04/2023 11:52 AM CDT [facility] HDL 43 >40.0 MG/DL 03/04/2023 11:52 AM CDT [facility] LDL (CALCULATED) 101(H) <100 MG/DL 03/04/2023 11:52 AM CDT [facility] NON HDL CHOLESTEROL 132(H) <130 MG/DL 03/04/2023 11:52 AM CDT [facility] CHOL/HDL RATIO 4.1 0.0 - 4.5 03/04/2023 11:52 AM CDT [facility] VLDL CALCULATION 31 5 - 55 MG/DL 03/04/2023 11:52 AM CDT [facility] LIPID INTERPRETATION 03/04/2023 11:52 AM CDT [facility] Comment: NIH CONCENSUS REPORT RECOMMENDATIONS: ADULT CHILD LOW RISK: CHOLESTEROL <200 <170 TRIGLYCERIDE <150 --- HDL >=60 --- LDL <100 <110 BORDERLINE: CHOLESTEROL 200-239 170-199 TRIGLYCERIDE 150-199 --- HDL 40-59 --- LDL 100-159 110-129 HIGH RISK: CHOLESTEROL >=240 >=200 TRIGLYCERIDE >=200 --- HDL <40 --- LDL >=160 >=130 03/04/2023 11:0 3 AM CDT Cristina BERGMANP LABORATORY Final Res ult [facility] [address] [place] [address], * PAP SMEAR WITH HPV (10/21/2021) 10/21/2021 us [facility] Scanned SCANNING Final Resu lt * HEPATITIS C ANTIBODY (01/31/2021 10:24 AM CDT) HEPATITIS C AB NON-REACTI VE NON-REACTI VE 01/31/2021 2:52 PM CDT [facility] 01/31/2021 10:2 4 AM CDT Cristina HER[facility]ERT [facility]ORAT[facility] Final Res ult [facility] [address] [place] [address], * PAP SMEAR (SCAN ORDER) (02/23/2020) 02/23/2020 [facility] Scanned SCANNING Final Resu lt from Last 3 Months or Most Recently Relevant to Health Maintenance Insurance MEDICAID [facility] Care Teams Toddler Caregiver Relationship Specialty Start Date End Date Cristina Foss FNP [address] [place] [address] [place] [address] PCP - General Nurse Practitioner Family 11/12/20
--- OUTSIDE RECORDS SUMMARY | 2024-12-15 13:53 | XMS_ITS | Encounter Summary ---
Author Organization [facility] Address [address] [place] [address] Care Team Providers Care Science Editor Name Role Phone Nadja Rodriguez [facility] Primary Care Provider [phone] Encounter Details Date Type Department Care Team (Late st Contact Info) Description 05/19/2023 Evisorst Message Enc [facility] [address] [place] [address] Nadja Rodriguez, [facility] [address] [place] [address] My results Social History Tobacco Use Types Packs/Day Years [...] Sex Assigned at Female 12/13/2023 10:05 AM ECHO TECHNICIAN Legal Sex Female 12:24 AM CDT Gender Identity Female 12/13/2023 10:05 AM ECHO TECHNICIAN Sexual Orientation Not on file documented as of this encounter Progress Notes * Dinorah Adame LPN - 05/19/2023 2:26 PM CDT Please review/advise. Pt. Has appt. Sched. 06/24/2023 with Cyrus Rodriguez. documented in this encounter Plan of Treatment Upcoming Encounters Date Type Department Care Team (Late st Contact Info) Description 01/22/2025 1:20 PM CDT Office Visit [facility] [address] [place], [place] [id number] Nadja Rodriguez FNP [address] [place], [place] [phone] documented as of this encounter Visit Diagnoses Not on filedocumented in this encounter Care Teams Science Editor Relationship Specialty Start Date End Date Nadja Rodriguez FNP [address] [place] [address] [place], [place] [phone] PCP - General Nurse Practitioner Family 11/12/20 documented as of this encounter
--- OUTSIDE RECORDS SUMMARY | 2024-12-15 13:53 | XMS_ITS | Encounter Summary ---
Author Organization [facility] Address [address] [place] [address] Care Team Providers Care Lean Specialist Name Role Phone Nadja Rodriguez [facility] Primary Care Provider [phone] [phone] Encounter Details Date Type Department Care Team (Late st Contact Info) Description 12/06/2024 Graffiti Message Enc [facility] [address] [place] [address] Nadja Rodriguez, [facility] [address] [place] [address] O med Social History Tobacco Use Types Packs/Day Years [...] Sex Assigned at Female 12/13/2023 10:05 AM TRANSCRIPT CLERK Legal Sex Female 12:24 AM CDT Gender Identity Female 12/13/2023 10:05 AM TRANSCRIPT CLERK Sexual Orientation Not on file documented as of this encounter Plan of Treatment Upcoming Encounters Date Type Department Care Team (Late st Contact Info) Description 01/22/2025 1:20 PM CDT Office Visit [facility] [address] [place] [address] Nadja Rodriguez FNP [address] [place] [address] documented as of this encounter Visit Diagnoses Not on filedocumented in this encounter Care Teams Lean Specialist Relationship Specialty Start Date End Date Nadja Rodriguez FNP [address] [facility] [place] [address] PCP - General Nurse Practitioner Family 11/12/20 documented as of this encounter
--- OUTSIDE RECORDS SUMMARY | 2024-12-15 13:53 | XMS_ITS | Encounter Summary ---
Author Organization [facility] Address [address] [place] [address] Care Team Providers Care Apartment Leasing Agent Name Role Phone Nadja Rodriguez [facility] Primary Care Provider [phone] [phone] Encounter Details Date Type Department Care Team (Late st Contact Info) Description 07/27/2023 MyChart Message Enc [address] [place] [address] Nadja Rodriguez, [place] [address] [place] [phone] Question Social History Tobacco Use Types Packs/Day Years [...] Sex Assigned at Female 12/13/2023 10:05 AM ELECTRONIC COMMUNICATIONS TECHNICIAN Legal Sex Female 12:24 AM CDT Gender Identity Female 12/13/2023 10:05 AM ELECTRONIC COMMUNICATIONS TECHNICIAN Sexual Orientation Not on file documented as of this encounter Plan of Treatment Upcoming Encounters Date Type Department Care Team (Late st Contact Info) Description 01/22/2025 1:20 PM CDT Office Visit [facility] [address] [place] [address] Nadja Rodriguez FNP [address] [place] [phone] documented as of this encounter Visit Diagnoses Not on filedocumented in this encounter Care Teams Apartment Leasing Agent Relationship Specialty Start Date End Date Nadja Rodriguez FNP [facility] [place] [address] PCP - General Nurse Practitioner Family 11/12/20 documented as of this encounter
--- OUTSIDE RECORDS SUMMARY | 2024-12-15 13:53 | XMS_ITS | Encounter Summary ---
Author Organization [facility] Address [address] [place] [address] Care Team Providers Care Biology Research Assistant Name Role Phone Nadja Rodriguez Arpita [facility] Primary Care Provider [phone] [phone] Encounter Details Date Type Department Care Team (Late st Contact Info) Description 01/14/[address] [facility] [place] [id number] [place] [phone] Benoit Mccarthy, DPM [address] [place] [phone] Time sooner Social History Tobacco Use Types Packs/Day Years [...] Sex Assigned at Female 12/13/2023 10:05 AM SPECIAL EDUCATION SECRETARY Legal Sex Female 12:24 AM CDT Gender Identity Female 12/13/2023 10:05 AM SPECIAL EDUCATION SECRETARY Sexual Orientation Not on file documented as of this encounter Plan of Treatment Upcoming Encounters Date Type Department Care Team (Late Contact Info) Description 01/22/2025 1:20 PM CDT Office Visit [facility] [address] [facility] [place] [address] Nadja Rodriguez FNP [facility] [address] [place], [place] [phone] documented as of this encounter Visit Diagnoses Not on filedocumented in this encounter Care Teams Biology Research Assistant Relationship Specialty Start Date End Date Nadja Rodriguez FNP [address] [place] [address] [place] [address] PCP - General Nurse Practitioner Family 11/12/20 documented as of this encounter
--- OUTSIDE RECORDS SUMMARY | 2024-12-15 13:53 | XMS_ITS | Encounter Summary ---
Author Organization [facility] Address [address] [place] [address] Care Team Providers Care Auto Air Conditioning Apprentice Name Role Phone RosyNadja perez [facility] Primary Care Provider [phone] [phone] Encounter Details Date Type Department Care Team (Late st Contact Info) Description 12/15/2024 Orders Only [facility] [address] [place] [address] Cindy Zaragoza, RESPIRATORY CARE FACULTY Social History Tobacco Use Types Packs/Day Years [...] Sex Assigned at Female 12/13/2023 10:05 AM SHADE CLOTH FINISHER Legal Sex Female 12:24 AM CDT Gender Identity Female 12/13/2023 10:05 AM SHADE CLOTH FINISHER Sexual Orientation Not on file documented as of this encounter Plan of Treatment Upcoming Encounters Date Type Department Care Team (Late st Contact Info) Description 01/22/2025 1:20 PM CDT Office Visit [facility] [address] [facility] [place] [address] Nadja Rodriguez FNP [address] [place] [address] documented as of this encounter Visit Diagnoses Diagnosis Primary hypertension Unspecified essential hypertension documented in this encounter Care Teams Auto Air Conditioning Apprentice Relationship Specialty Start Date End Date Nadja Rodriguez FNP [address] [place] [address] [place] [address] PCP - General Nurse Practitioner Family 11/12/20 documented as of this encounter
--- OUTSIDE RECORDS SUMMARY | 2024-12-15 13:53 | XMS_ITS | Encounter Summary ---
Author Organization [facility] Address [address] [place] [address] Care Team Providers Care Flour Mixer Name Role Phone Nadja Rodriguez [facility] Primary Care Provider [phone] [phone] Encounter Details Date Type Department Care Team (Late st Contact Info) Description 12/15/2024 8:45 AM [facility] Encounter [facility] [address] [place] [address] Nadja Rodriguez, [address] [place], [place] [phone] Arrived Social History Tobacco Use Types Packs/Day Years [...] Sex Assigned at Female 12/13/2023 10:05 AM WALL TAPER Legal Sex Female 12:24 AM CDT Gender Identity Female 12/13/2023 10:05 AM WALL TAPER Sexual Orientation Not on file documented as of this encounter Plan of Treatment Upcoming Encounters Date Type Department Care Team (Late st Contact Info) Description 01/22/2025 1:20 PM CDT Office Visit [facility] [address] [place] [address] Nadja Rodriguez FNP [address] [place] [address] documented as of this encounter Procedures Procedure Name Priority Date/Time Associated Diagnosis Comments THYROID STIM HORMONE TSH Routine 12/15/2024 8:52 AM WALL TAPER Hypothyroidism, unspecified type documented in this encounter Results * THYROID STIM HORMONE TSH (12/15/2024 8:52 AM WALL TAPER) TSH 1.837 0.358 - 3.74 uIU/ML 12/15/2024 9:[address] [facility] Comment: HIGH DOSES OF BIOTIN MAY INTERFERE WITH THIS TEST RESULT. CORRELATION TO CLINICAL HISTORY AND PRESENTATION RECOMMENDED. 12/15/2024 8:52 AM WALL TAPER Nadja [facility] Final Res ult [facility] [address] [place] [address], documented in this encounter Visit Diagnoses Diagnosis Hypothyroidism, unspecified type documented in this encounter Care Teams Flour Mixer Relationship Specialty Start Date End Date Nadja Rodriguez FNP [address] [place] [address] [place] [address] PCP - General Nurse Practitioner Family 11/12/20 documented as of this encounter
--- OUTSIDE RECORDS SUMMARY | 2024-12-15 13:53 | XMS_ITS | Encounter Summary ---
Author Organization [facility] Address [address] [place] [address] Care Team Providers Care Drop Wirer Name Role Phone Najda Rodriguez [facility] Primary Care Provider [phone] [phone] Encounter Details Date Type Department Care Team (Late st Contact Info) Description 05/19/2024 MyChart Message Enc [address] [place] [phone] Nadja Rodriguez, [place] [address] [place] [phone] Fever Social History Tobacco Use Types Packs/Day Years [...] Date Recorded Patient Health Questionnaire-2 Score 0 04/20/2024 Comments No Sex and Gender Information Value Date Recorded Sex Assigned at Female 12/13/2023 10:05 AM ELECTRONICS COMPUTER MECHANIC Legal Sex Female 12:24 AM CDT Gender Identity Female 12/13/2023 10:05 AM ELECTRONICS COMPUTER MECHANIC Sexual Orientation Not on file documented as of this encounter Plan of Treatment Upcoming Encounters Date Type Department Care Team (Late st Contact Info) Description 01/22/2025 1:20 PM CDT Office Visit [facility] [address] [place] [address] Nadja Rodriguez FNP [address] [place] [phone] documented as of this encounter Visit Diagnoses Not on filedocumented in this encounter Care Teams Drop Wirer Relationship Specialty Start Date End Date Nadja Rodriguez FNP [facility] [place] [address] PCP - General Nurse Practitioner Family 11/12/20 documented as of this encounter
--- OUTSIDE RECORDS SUMMARY | 2024-12-15 13:53 | XMS_ITS | Encounter Summary ---
Author Organization [facility] Address [address] [place] [address] Care Team Providers Care Metallurgical Laboratory Assistant Name Role Phone Nadja Rodriguez Arpita CONSTRUCTION EXECUTIVE Primary Care Provider [phone] [phone] Encounter Details Date Type Department Care Team (Late st Contact Info) Description 01/31/2024 Xifra Businesst Message Enc [facility] [id number] [place] [phone] Benoit Mccarthy, DPM [address] [place] [phone] Mri Social History Tobacco Use Types Packs/Day Years [...] Sex Assigned at Female 12/13/2023 10:05 AM RN DIALYSIS Legal Sex Female 12:24 AM CDT Gender Identity Female 12/13/2023 10:05 AM RN DIALYSIS Sexual Orientation Not on file documented as of this encounter Plan of Treatment Upcoming Encounters Date Type Department Care Team (Late st Contact Info) Description 01/22/2025 1:20 PM CDT [facility] [address] [place] [address] Nadja Rodriguez FNP [address] [place], [place] [phone] documented as of this encounter Visit Diagnoses Not on filedocumented in this encounter Care Teams Metallurgical Laboratory Assistant Relationship Specialty Start Date End Date Nadja Rodriguez FNP [address] [place] [address] [place] [address] PCP - General Nurse Practitioner Family 11/12/20 documented as of this encounter
--- OUTSIDE RECORDS SUMMARY | 2024-12-15 13:53 | XMS_ITS | Encounter Summary ---
Author Organization [facility] Address [address] [place] [address] Care Team Providers Care Legal Adviser Name Role Phone Nadja Rodriguez [facility] Primary Care Provider [phone] [phone] Encounter Details Date Type Department Care Team (Late st Contact Info) Description 08/16/2024 MyChart Message Enc [address] [place] [phone] Nadja Rodriguez, [address] [place] [phone] Mix w water Social History Tobacco Use Types Packs/Day Years [...] Sex Assigned at Female 12/13/2023 10:05 AM EMERGENCY MEDICAL SERVICE COORDINATOR Legal Sex Female 12:24 AM CDT Gender Identity Female 12/13/2023 10:05 AM EMERGENCY MEDICAL SERVICE COORDINATOR Sexual Orientation Not on file documented as of this encounter Plan of Treatment Upcoming Encounters Date Type Department Care Team (Late st Contact Info) Description 01/22/2025 1:20 PM CDT Office Visit [facility] [address] [place] [address] Nadja Rodriguez FNP [address] [place] [phone] documented as of this encounter Visit Diagnoses Not on filedocumented in this encounter Care Teams Legal Adviser Relationship Specialty Start Date End Date Nadja Rodriguez FNP [address] [place] [phone] PCP - General Nurse Practitioner Family 11/12/20 documented as of this encounter
--- OUTSIDE RECORDS SUMMARY | 2024-12-15 13:53 | XMS_ITS | Encounter Summary ---
Author Organization [facility] Address [address] [place] [address] Care Team Providers Care Bench Assembler Battery Name Role Phone Nadja Rodriguez [facility] Primary Care Provider [phone] [phone] Encounter Details Date Type Department Care Team (Late st Contact Info) Description 06/08/2024 WatchGuardt Message Enc [facility] [address] [place] [address] Nadja Rodriguez, [facility] [address] [place] [address] Med Social History Tobacco Use Types Packs/Day Years [...] Sex Assigned at Female 12/13/2023 10:05 AM NURSE COORDINATOR Legal Sex Female 12:24 AM CDT Gender Identity Female 12/13/2023 10:05 AM NURSE COORDINATOR Sexual Orientation Not on file documented as of this encounter Progress Notes * Arabella Light MA - 06/08/2024 4:17 PM CDT Plz advise documented in this encounter Plan of Treatment Upcoming Encounters Date Type Department Care Team (Late st Contact Info) Description 01/22/2025 1:20 PM CDT Office Visit [facility] [address] [place], [place] [phone] Nadja Rodriguez FNP [address] [place] [phone] documented as of this encounter Visit Diagnoses Not on filedocumented in this encounter Care Teams Bench Assembler Battery Relationship Specialty Start Date End Date Nadja Rodriguez FNP [address] [place] [address] [place], [place] [phone] PCP - General Nurse Practitioner Family 11/12/20 documented as of this encounter
--- OUTSIDE RECORDS SUMMARY | 2024-12-15 13:53 | XMS_ITS | Encounter Summary ---
Author Organization [facility] Address [address] [place] [address] Care Team Providers Care Shovel Logger Name Role Phone Nadja Rodriguez [facility] Primary Care Provider [phone] [phone] Encounter Details Date Type Department Care Team (Late st Contact Info) Description 03/29/2024 MyChart Message Enc [facility] [address] [place] [address] Nadja Rodriguez, [place] [address] [place] [phone] Blood work Social History Tobacco Use Types Packs/Day Years [...] Sex Assigned at Female 12/13/2023 10:05 AM TRUST ADVISOR Legal Sex Female 12:24 AM CDT Gender Identity Female 12/13/2023 10:05 AM TRUST ADVISOR Sexual Orientation Not on file documented as of this encounter Plan of Treatment Upcoming Encounters Date Type Department Care Team (Late st Contact Info) Description 01/22/2025 1:20 PM CDT Office Visit [facility] [address] [place] [address] Nadja Rodriguez FNP [address] [place] [phone] documented as of this encounter Visit Diagnoses Not on filedocumented in this encounter Care Teams Shovel Logger Relationship Specialty Start Date End Date Nadja Rodriguez FNP [facility] [address] [place] [phone] PCP - General Nurse Practitioner Family 11/12/20 documented as of this encounter
--- OUTSIDE RECORDS SUMMARY | 2024-12-15 13:53 | XMS_ITS | Encounter Summary ---
Author Organization [facility] Address [address] [place] [address] Care Team Providers Care Application Support Lead Name Role Phone Nadja Rodriguez [facility] Primary Care Provider [phone] [phone] Encounter Details Date Type Department Care Team (Late st Contact Info) Description 06/01/2024 MyChart Message Enc [address] [place] [address] Nadja Rodriguez, [place] [address] [place] [phone] Anxiety Social History Tobacco Use Types Packs/Day Years [...] Sex Assigned at Female 12/13/2023 10:05 AM SILK BRUSHER Legal Sex Female 12:24 AM CDT Gender Identity Female 12/13/2023 10:05 AM SILK BRUSHER Sexual Orientation Not on file documented as of this encounter Plan of Treatment Upcoming Encounters Date Type Department Care Team (Late st Contact Info) Description 01/22/2025 1:20 PM CDT Office Visit [facility] [address] [place] [address] Nadja Rodriguez FNP [address] [place] [phone] documented as of this encounter Visit Diagnoses Not on filedocumented in this encounter Care Teams Application Support Lead Relationship Specialty Start Date End Date Nadja Rodriguez FNP [facility] [place] [address] PCP - General Nurse Practitioner Family 11/12/20 documented as of this encounter
--- OUTSIDE RECORDS SUMMARY | 2024-12-15 13:53 | XMS_ITS | Data Portability ---
Author Organization [facility] Address [address] [place] [address] [place] [address] Care Team Providers Care Supervising Producer Name Role Phone [facility] Primary Car e Provider Assessment Encounter Date Assessment Date Assessment LastModified by Organization Details LastModified Time 09/13/2020 09/13/2020 Patient is ___weeks . Discussed plan. [email or web address] Not available 09/13/2020 17:04:48 09/20/2020 09/20/2020 Patient is __39_weeks . Discussed plan. [email or web address] Not available 09/20/2020 11:55:38 10/01/2020 10/01/2020 UA, urine culture Rx: keflex due to 2 allergies and . Precautions given re possible cross allergy with PCN. Will call if culture requires change of antibiotic therapy Call office if symptoms worsen or persist despite treatment Follow up for PP visit as scheduled. [email or web address] Not available 10/01/2020 18:00:30 10/21/2021 10/21/2021 Annual gynecological exam performed. Patient will come back in a year unless there are new symptoms. [email or web address] Not available 10/21/2021 11:56:18 Plan of Treatment Reminders Order Date Submit Date Provider Last Modified By Organization Details Last Modified Time Details Appointments None recorded. Lab urinalysis , dipstick 2019 020 [email or web address] [email or web address], [address], [place], [address], 0 18:11:54 Referral None recorded. Procedures None recorded. Surgeries None recorded. Imaging MAMMO, screening, bilateral 2021 022 [email or web address] [facility] (Imaging & Mammogram), [address] [place], [address], 2 16:29:51 Medication Orders Keflex 500 mg capsule 2019 020 [email or web address] [id number], [address], [place], [id number], 1 09:58:01 Patient TargetsNo targets recorded. Patient Instructions Encounter Date Encounter Id Patient Instructions Last Modified By Organization Details Last Modified Time 11/01/2020 [id number] pp exam f/u wwe, hx lsil, refer to PT for hip pain [email or web address] Not available 11/01/2020 15:32:34 Reason for Referral None Reported. Results Created Date Observation Date Name Description Value Unit Range Abnormal Flag Note LastModifiedBy Organization Detail LastModifiedTime 08/27/2008/29/2020 strep tococ cus group B DNA GB specimen source Vagina l/Rect al Not Available [facility] ([facility]) [address], [place], [address], 08/29/2020 15:19:02 08/27/2008/29/2020 strep tococ cus group B DNA spec type Cultur e Swab Not Available [facility] ([facility]) [address], [place], [address], 08/29/2020 15:19:02 08/27/20 20 08/29/2020 strep tococ cus group B DNA group B strep by PCR NOT DETECT ED not detect ed Inter preta tion: A posit rodrigo resul t indic ates the detec tion of Group B Strep tococ cus DNA but not neces saril y the prese nce of viabl e organ isms; it is presu mptiv e for the prese nce of Group B Strep tococ cus. A negat rodrigo resul t does not exclu de the possi bilit y of infec tion since very low level s of micro organ ism or sampl ing error may cause a false negat rodrigo resul t. This assay is highl y accur ate, but rare false posit rodrigo and false negat rodrigo resul ts may occur . Metho dolog y: This resul t was deter mined using the FDA-c leare d BD Max GBS Assay . The BD Max GBS Assay is a quali tativ e in vitro diagn ostic test for the rapid detec tion of Group B Strep tococ cus (GBS) DNA in vagin al/re ctal speci mens from prepa rtum or intra partu m women utili zing real- time PCR. Perfo rmed by [facility], [facility], d/b/a [facility], [address] [place] [address], [place] [address] , Bolivar Lobo ra, DO, Labor atory Direc tor. Not Available [facility]) [address] [place] [address] [address], [place], [address], 08/29/2020 15:19:02 10/01/20 20 10/02/2020 cultu re, urine specimen source Urine - Void Not Available [facility] ([facility]) [address] [place] [address] [address], [place], [address], 10/04/2020 15:12:34 10/01/20 20 10/02/2020 cultu re, urine culture, urine See Below See Micro biolo gy Repor t Not Available [facility] ([facility]) [address] [place] [address] [address], [place], [address], 10/04/2020 15:12:34 10/01/20 20 10/02/2020 cultu re, urine escherichia coli >100,0 00 CFU/ml Escher ichia coli Not Available [facility] ([facility]) [address] [place] [address] [address], [place], [address], 10/04/2020 15:12:34 10/01/20 20 10/02/2020 cultu re, urine sensitivity panel See Below ___ Organ ism E. coli Antib iotic INTER P ___ Amika reina S Ampic illin S Aztre onam S Cefaz chen S Cefep yudith S Cefox itin S Cefta zidim e S Ceftr iaxon e S Cefur oxime S Cipro floxa reina S Ertap enem S Genta micin S Imipe nem S Levof loxac in S Merop enem S Nitro furan toin S Piper acill in/Ta zo S Tetra cycli ne S Tobra mycin S Trime th/Pinto lfa S __ S=JODIE CEPTI BLE I=INT ERMED IATE R=RES ISTAN T Not Available [facility] ([facility]) [address], [place], [address], 10/04/2020 15:12:34 10/01/20 20 10/01/2020 urina lysis , dipst ick Leukocytes trace Not Available [place] [facility] [address], [place], [address], 10/01/2020 17:33:58 10/01/20 20 10/01/2020 urina lysis , dipst ick Nitrite neg Not Available [place] [address], [place], [address], 10/01/2020 17:33:58 10/01/20 20 10/01/2020 urina lysis , dipst ick Blood ++ Not Available [place] [address], [place], [address], 10/01/2020 17:33:58 10/01/20 20 10/01/2020 urina lysis , dipst ick Leukocytes trace Not Available [facility] [address], [place], [address], 10/01/2020 17:33:17 10/01/20 20 10/01/2020 urina lysis , dipst ick Nitrite neg Not Available [place] [address], [place], [address], 10/01/2020 17:33:17 10/01/20 20 10/01/2020 urina lysis , dipst ick Blood ++ Not Available [place] [address], [place], [address], 10/01/2020 17:33:17 11/29/19 21 11/29/2020 US, summer jackson, lamin thomas md interpretati on Not Available [place] [address], [place], [address], 05/14/2020 11:51:39 11/29/19 21 11/29/2020 US, summer jackson, 2nd or 3rd vishal griggs md interpretati on Not Available [place] [address], [place], [address], 05/14/2020 11:51:25 12/11/19 21 12/10/2020 US, anna granda md interpretati on Not Available [place] [address], [place], [address], 08/02/2020 12:20:56 10/21/19 22 10/21/2021 IMAGE GUIDE D PAP AND HPV REGAR DLESS image guided Pap, HPV regardless of Pap result SEE RESULT S BELOW CASE REPOR T: Cytol ogy Gynec ologi gonzález Repor t Case: [id number] Provi cat: Sylvain Whatley Colle cted: 10/21 1553 MATERIAL CHECKER Order ing Locat ion: [place] [facility] Recei gina: 10/22 0657 First Scree n: Bárbara Parra , CT Speci men: Latonya castillo Pap - Image d, Cervi x STATE MENT OF ADEQU ACY: Satis facto ry for evalu ation Trans forma tion zone compo nent prese nt FINAL DIAGN OSIS: Negat rodrigo for Intra epith elial Navdeep luna or Rossana contreras (NIL) . Elect quinton barrera shruthi d by Bárbara Parra , CT on 2021 at 3:35 PM ----- ----- ----- ----- ----- ----- ----- ----- ----- ----- ----- ----- ----- ----- ----- ----- ----- ---- HPV RESUL TS: HPV mRNA E6/E7 : No HPV mRNA Detec conrad NOTE: This high risk HPV mRNA assay detec ts fourt een high- risk HPV types (16, 18, 31, 33, 35, 39, 45, 51, 52, 56, 58, 59, 66, 68) witho ut diffe renti ation . COMME NT: Note: This speci men was revie wed by a Cytot echno logis t and/o r Patho logis t (as indic ated in this repor t) after evalu ation using the Thinp rep Imagi ng Syste m. CLINI [facility] INFOR MATIO N: Menst rual Statu s: LMP (if appli cable ): Clini gonzález Histo ry/Pr eviou s Pap: Type of Neopl quentin (if appli cable ): Signi fican t Clini goznález Findi ngs: Other Histo ry: Hormo iain (if appli cable ): PAP EDUCA BERTIN L NOTE: The Pap Test is a scree anna test with an inher ent false negat rodrigo rate. Liqui d-bas ed sampl ing may decre ase, but will not elimi cori, false negat rodrigo resul ts. A negat rodrigo resul t does not precl ude the prese nce and/o r devel opmen t of disea se, since the prese nce of abnor mal cells in the sampl e depen ds on the locat ion of the lesio n and sampl ing techn ique. Christian nued regul ar scree anna is the best metho d of cance r preve ntion . If repor conrad cytol ogic findi ng do not corre late with physi gonzález and/o r histo rical findi ngs, furth er inves tigat ion is recom carmelo d, as clini juan c warra nted. Not Available [facility] (Lab) [address] , [place], [address], 10/27/2021 16:38:16 10/21/19 22 10/21/2021 CT/GC (JOSE) , THINP REP VIAL chlamydia trachomatis, PCR Negati ve negati ve Not Available [facility] (Lab) [address] , [place], [address], 10/27/2021 16:38:17 10/21/19 22 10/21/2021 CT/GC (JOSE) , THINP REP VIAL neisseria gonorrhoeae, PCR Negati ve negati ve Not Available [facility] (Lab) [address], [place], [address], 10/27/2021 16:38:17 10/21/19 22 10/21/2021 TRICH OMONA S VAGIN ANDREIA (RRNA ) trichomonas vaginalis ribosomal RNA (rrna) Negati ve negati ve Not Available [facility] (Lab) [address], [place], [address], 10/27/2021 16:38:17 Result Notes None recorded. Problems Name Problem SNOMED Code Status Onset Date Resolution Date Notes Provider Name and Address Organization Details Recorded Time Pregnanc y 75690189 Completed 201909/26/2020 Alma Nichole null, [facility] 0 13:43:35 Lumbar spinal meningoc ashia 172520095 Completed Almasushil Nichole [facility], [facility] 0 13:43:29 Advanced maternal age 120741244 Completed 201907/28/2021 Loraine Alvarez null, [facility] 1 17:10:21 Herpes simplex 39918703 Completed hx - SP tx'd 08/27 valtrex Alma Doran [facility], [facility] 0 13:43:29 Thyroid disease monitori ng Completed 201910/01/202002/18 (13w2d) - 2.254 repeat in 3rd trimeste r!!! Arabella Chery MD [address], [place], [address], [facility] 0 17:42:59 History of thyroid disorder [id number] Completed 07/19 TSH WNL Almasushil Nichole [facility], [facility] 0 13:43:29 Normal pregnanc y in multigra delmis [id number] 71674 Completed 201410/01/2020 Encounte r for supervis ion of other normal pregnanc y, 1st trimeste r;Record ed Elsewher e: No [facility]at [facility] our[facility]: EHR Fiberglass Insulation Installer heidy: N Practi ce ID: 0001 Ajith lable Time: 01:00:00 PM Arabella Chery MD [address], [place], [address], [facility] 0 17:42:21 Gestatio n period, 36 weeks [id number] Completed 201510/01/2020 36 weeks gestatio n of pregnanc y;Record ed Elsewher e: No Locat ion: Noel [facility] S ource: EHR Fiberglass Insulation Installer heidy: N Jennyti ce ID: 0001 Ajith lable Time: 10:30:00 AM Arabella Chery MD [address], [place], [address], [facility] 0 17:41:50 Gestatio n less than 9 weeks [id number] Completed 201410/01/2020 Less than 8 weeks gestatio n of pregnanc y;Record ed Elsewher e: No Locat ion: [facility] S ource: EHR [employer] Insulation Installer heidy: N Perico ce ID: 0001 Ajith lable Time: 01:00:00 PM Arabella Chery MD [address], [place], [address], [facility] 0 17:43:23 Finding of body mass index 843236555 Completed 201410/01/2020 Body mass index (BMI) 40.0-44. 9, adult;Re corded Elsewher e: No Locat ion: [facility] S ource: EHR Fib[employer]lass Insulation Installer heidy: Carmella River ce ID: 0001 Ajith lable Time: 01:00:00 PM Arabella Chery MD [address], [place], [address], [facility] 0 17:43:21 Missed miscarri age 12919319 Completed 201410/01/2020 Missed ;Recorde d Elsewher e: No Locat ion: [facility] S ource: EHR Fiberglass Insulation Installer heidy: Carmella River ce ID: 0001 Ajith lable Time: 04:00:[address] MD [address], [place], [address], [facility] 0 17:42:18 Labor and delivery complica conrad by heart rate anomaly [id number] Completed 201310/01/2020 ABNORMAL ITY IN HEART RATE OR RHYTHM, ANTEPART UM;Recor ded Elsewher e: No Locat ion: Noel schulte [facility] S ource: EHR Fiberglass Insulation Installer heidy: N Perico ce ID: 0001 Ajith lable Time: 09:30:00 AM Arabella Chery MD [address], [place], [address], [facility] 0 17:42:11 Female infertil ity [id number] Completed 201210/01/2020 Infertil ity, female, of other specifie d origin;R ecorded Elsewher e: No [facility]at [facility]: EHR Fib[employer]lass Insulation Installer heidy: Carmella River ce ID: 0001 Ajith lable Time: 09:30:00 AM Arabella Chery MD [address], [place], [address], [facility] 0 17:41:32 Gestatio n period, 38 weeks 30244286 Completed 201510/01/2020 38 weeks gestatio n of pregnanc y;Record ed Elsewher e: No [facility]at [facility]: EHR Fiberglass Insulation Installer heidy: Carmella River ce ID: 0001 Ajith lable Time: 11:00:00 AM Arabella Chery MD [address], [place], [address], [facility] 0 17:41:54 Ultrason ography Completed 201210/01/2020 Antenata l screenin g for malforma tion using ultrason ics;Bernardino rded Elsewher e: No Locat ion: Noel schulte [facility] S ource: EHR Fiberglass Insulation Installer heidy: Carmella River ce ID: 0001 Ajith lable Time: 02:00:00 PM Arabella Chery MD [address], [place], [address], [facility] 0 17:43:01 Antenata l screenin g Completed 201210/01/2020 Antenata l screenin g for malforma tion using ultrason ics;Bernardino rded Elsewher e: No [facility]at ion[facility]: EHR Fiberglass Insulation Installer heidy: N Perico ce ID: 0001 Ajith lable Time: 02:00:00 PM Arabella Chery MD [address], [place], [address], [facility] 0 17:41:27 Congenit al malforma tion [id number] Completed 201210/01/2020 Antenata l screenin g for malforma tion using ultrason ics;Bernardino rded Elsewher e: No Locat ion: [facility] S ource: EHR Fiberglass Insulation Installer heidy: N Perico ce ID: 0001 Ajith lable Time: 02:00:00 PM Arabella Chery MD [address], [place], [address], [facility] 0 17:41:24 Oligohyd ramnios Completed 201510/01/2020 Oligohyd ramnios, third trimeste r, not applicab le or unsp;Rec orded Elsewher e: No Locat ion: [facility] S ource: EHR Fiberglass Insulation Installer heidy: Carmella River ce ID: 0001 Ajith lable Time: 11:00:00 AM Arabella Chery MD [address], [place], [address], [facility] 0 17:41:37 Pregnanc y test positive [id number] Completed 201210/01/2020 Pregnanc y examinat ion or test, positive result;R ecorded Elsewher e: No Locat ion: [facility] S ource: EHR Fiberglass Insulation Installer heidy: N Jennyti ce ID: 0001 Ajith lable Time: 02:30:00 PM Arabella Chery MD [address], [place], [address], [facility] 0 17:42:26 Known OR suspecte d abnormal ity affectin g manageme nt of mother Completed 201210/01/2020 Unspecif ied suspecte d abnormal ity, affectin g manageme nt of mother, unspecif ied as to episode of care;Rec orded Elsewher e: No Locat ion: [facility] S ource: EHR Fiberglass Insulation Installer heidy: N Practi ce ID: 0001 Ajith lable Time: 10:30:00 AM Arabella Chery MD [address], [place], [address], [facility] 0 17:42:07 Female genital organ symptoms [id number] Completed 201210/01/2020 Unspecif ied symptom associat ed with female genital organs;R ecorded Elsewher e: No Locat ion: [facility] S ource: EHR Fiberglass Insulation Installer heidy: N Practi ce ID: 0001 Ajith lable Time: 04:00:00 PM Arabella Chery MD [address], [place], [address], [facility] 0 17:41:29 Routine antenata l care Completed 201410/01/2020 Supervis ion of other normal pregnanc y;Record ed Elsewher e: No Locat ion: [facility] S ource: EHR Fiberglass Insulation Installer heidy: N Practi ce ID: 0001 Ajith lable Time: 09:30:00 AM Arabella Chery MD [address], [place], [address], [facility] 0 17:42:31 Syphilis test finding [id number] Completed 201410/01/2020 Encntr screen for infectio ns w sexl mode of transmis s;Record ed Elsewher e: No Locat ion: [facility] S ource: EHR Fiberglass Insulation Installer heidy: N Practi ce ID: 0001 Ajith lable Time: 01:00:00 PM Arabella Chery MD [address], [place], [address], [facility] 0 17:42:51 Gestatio n period, 34 weeks [id number] Completed 201510/01/2020 34 weeks gestatio n of pregnanc y;Record ed Elsewher e: No Locat ion: [facility] S ource: EHR Fiberglass Insulation Installer heidy: N Practi ce ID: 0001 Ajith lable Time: 10:00:00 AM Arabella Chery MD [address], [place], [address], [facility] 0 17:41:46 Lochia finding Completed 201510/01/2020 Encounte r for routine postpart um follow-u p;Record ed Elsewher e: No Locat [facility]: [facility] S ource: EHR Fiberglass Insulation Installer heidy: N Practi ce ID: 0001 Ajith lable Time: 03:15:00 PM Arabella Chery MD [address], [place], [address], [facility] 0 17:42:13 Gestatio n period, 35 weeks [id number] Completed 201510/01/2020 35 weeks gestatio n of pregnanc y;Record ed Elsewher e: No [facility]at ion[facility] S ource: EHR Fiberglass Insulation Installer heidy: N Practi ce ID: 0001 Ajith lable Time: 01:30:00 PM Arabella Chery MD [address], [place], [address], [facility] 0 17:41:48 Gestatio n period, 33 weeks [id number] Completed 201510/01/2020 33 weeks gestatio n of pregnanc y;Record ed Elsewher e: No Locat ion: [facility] S ource: EHR Fiberglass Insulation Installer heidy: N Jennyti ce ID: 0001 Ajith lable Time: 01:00:00 PM Arabella Chery MD [address], [place], [address], [facility] 0 17:43:26 Speciali zed medical examinat ion Completed 201410/01/2020 ROUTINE DELIVERY ROOM SUPERVISOR EXAMINAT ION;Bernardino rded Elsewher e: No Locat ion: [facility] S ource: EHR Fiberglass Insulation Installer heidy: N Practi ce ID: 0001 Ajith lable Time: 09:30:00 AM Arabella Chery MD [address], [place], [address], [facility] 0 17:42:43 Morbid obesity 413065768 Completed 201407/28/2021 Obesity, Morbid;R ecorded Elsewher e: No Locat ion: [facility] S ource: EHR Fiberglass Insulation Installer heidy: N Jennyti ce ID: 0001 Ajith lable Time: 09:30:00 AM [facility] 1 17:10:25 Amenorrh ea [id number] Completed 201410/01/2020 Absence of menstrua tion;Rec orded Elsewher e: No Locat ion: [facility] S ource: EHR Fiberglass Insulation Installer heidy: N Jennyti ce ID: 0001 Ajith lable Time: 09:30:00 AM Arabella Chery MD [address], [place], [address], [facility] 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 1 17:10:24 Pregnanc y detectio n examinat ion Completed 201410/01/2020 Encounte r for pregnanc y test, result positive ;Recorde d Elsewher e: No Locat ion: [facility] S ource: EHR Fiberglass Insulation Installer heidy: N Perico ce ID: 0001 Ajith lable Time: 01:00:00 PM Arabella Chery MD [address], [place], [address], [facility] 0 17:42:24 Gestatio n period, 37 weeks [id number] Completed 201510/01/2020 37 weeks gestatio n of pregnanc y;Record ed Elsewher e: No [facility]at ion: [facility] S our[facility]: EHR Fiberglass Insulation Installer heidy: Carmella River ce ID: 0001 Ajith lable Time: 11:00:00 AM Arabella Chery MD [address], [place], [address], [facility] 0 17:43:28 Postpart um care Completed 201310/01/2020 Post Followup ;Recorde d Elsewher e: No Locat ion: [facility] S ource: EHR Fiberglass Insulation Installer heidy: Carmella River ce ID: 0001 Ajith lable Time: 03:15:00 PM Arabella Chery MD [address], [place], [address], [facility] 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 1 17:10:22 Threaten ed miscarri age [id number] Completed 201410/01/2020 Threaten ed ;Recorde d Elsewher e: No Locat ion: Noel schulte [facility] S ource: EHR Fiberglass Insulation Installer heidy: N Practi ce ID: 0001 Ajith lable Time: 02:00:00 PM Arabella Chery MD [address], [place], [address], [facility] 0 17:42:56 Gestatio n period, 32 weeks [id number] Completed 201510/01/2020 32 weeks gestatio n of pregnanc y;Record ed Elsewher e: No Locat ion: Noel schulte [facility] S ource: EHR Fiberglass Insulation Installer heidy: N Practi ce ID: 0001 Ajith lable Time: 01:00:00 PM Arabella Chery MD [address], [place], [address], [facility] 0 17:41:43 Secondar y amenorrh ea [id number] Completed 201410/01/2020 Secondar y amenorrh ea;Recor ded Elsewher e: No Locat ion: Noel schulte [facility] S ource: EHR Fiberglass Insulation Installer heidy: N Practi ce ID: 0001 Ajith lable Time: 01:00:00 PM Arabella Chery MD [address], [place], [address], [facility] 0 17:42:36 Gestatio n period, 39 weeks [id number] Completed 201510/01/2020 39 weeks gestatio n of pregnanc y;Record ed Elsewher e: No [facility]at ion: [facility] S our[facility]: EHR Fiberglass Insulation Installer heidy: N Practi ce ID: 0001 Ajith lable Time: 10:00:00 AM Arabella Chery MD [address], [place], [address], [facility] [facility] 0 17:41:57 Speciali zed medical examinat ion Completed 201410/01/2020 Other specifie d chlamydi al diseases ;Recorde d Elsewher e: No Locat ion: Branden eris [facility] S ource: EHR Fiberglass Insulation Installer heidy: N Practi ce ID: 0001 Ajith lable Time: 09:30:00 AM Arabella Chery MD [address], [place], [address], [facility] 0 17:42:46 Streptoc occal sore throat [id number] Completed 201210/01/2020 Streptoc occal sore throat;R ecorded Elsewher e: No [facility] S ource: EHR Fib[employer]lass Insulation Installer heidy: N Practi ce ID: 0001 Ajith lable Time: 04:00:00 PM Arabella Chery MD [address], [place], [address], [facility] [address] 17:42:[address] Concept Completed 201410/01/2020 Encntr for parole or probation officer exam (general ) (routine ) w/o abn findings ;Recorde d Elsewher e: No Locat [facility]: [facility] S ource: EHR [employer] Insulation Installer heidy: N Practi ce ID: 0001 Ajith lable Time: 01:00:00 PM Arabella Chery MD [address], [place], [address], [facility] 0 17:42:41 Uterine size for dates discrepa ncy [id number] Completed 201410/01/2020 Uterine size date discrepa ncy in pregnanc y;Record ed Elsewher e: No Locat ion: [facility] S ource: EHR Fiberglass Insulation Installer heidy: N Practi ce ID: 0001 Ajith lable Time: 03:30:[address] MD [address], [place], [address], [facility] 0 17:43:03 Infectio n screenin g Completed 201410/01/2020 Encounte r for screenin g for oth infec/pa rastc diseases ;Recorde d Elsewher e: No Locat ion: Toriealma eris [facility] S ource: EHR [employer] Insulation Installer heidy: N Practi ce ID: 0001 Ajith lable Time: 01:00:00 PM Arabella Chery MD [address], [place], [address], [facility] 0 17:42:02 Incomple te [id number] Completed 201410/01/2020 Incomple te ;Recorde d Elsewher e: No Locat ion: Noel schulte [facility] S ource: EHR Fib[employer]lass Insulation Installer heidy: N Practi ce ID: 0001 Ajith lable Time: 03:00:00 PM Arabella Chery MD [address], [place], [address], [facility] 0 17:42:00 Venereal disease screenin g Completed 201410/01/2020 Screenin g examinat ion for venereal disease; Recorded Elsewher e: No Locat ion: [facility] S ource: EHR Fiberglass Insulation Installer heidy: N Practi ce ID: 0001 Ajith lable Time: 09:30:00 AM Arabella Chery MD [address], [place], [address], [facility] 0 17:43:11 Reproduc tive care manageme nt Completed 201010/01/2020 Unspecif ied procreat rodrigo manageme nt;Pract ice ID: 0001 Arabella Chery MD [address], [place], [address], [facility] 0 17:42:29 Screenin g for malignan t neoplasm of cervix Completed 201410/01/2020 Pap Smear;Pr actice ID: 0001 Arabella Chery MD [address], [place], [address], [facility] 0 17:42:34 Term pregnanc y delivere d [id number] Completed 201510/01/2020 Encounte r for full-ter m uncompli cated delivery ;Practic e ID: 0001 Arabella Chery MD [address], [place], [address], [facility] 0 17:42:53 Single live [id number] Completed 201510/01/2020 Single live ;Pr actice ID: 0001 Arabella Chery MD [address], [place], [address], [facility] 0 17:42:39 Problem Notes None recorded. Procedures Surgical History Date Name Laterality Status Provider Name and Address Organization Details Recorded Time 10/21/19 22 Date of Last Pap Smear completed Dinorahcony Goldsmith [facility] 10/21/2021 11:57:48 01/10/20 05 [facility] 07/08/2021 16:07:01 10/11/19 02 cryosurgery completed [facility] 02/22/2020 17:13:35 10/11/18 81 procedure on back completed Dinorahcony Goldsmith [facility] 10/21/2021 11:59:31 Imaging Results None recorded. Procedure Notes None recorded. Medical Equipment None Reported. Allergies Allergen ID Allergen Name Allergen Category Reaction Reaction Severity Criticality Documentation Date Start Date Code Code System Note Provider Name and Address Organization Details Recorded Time 590 Product containin g penicilli n (product) medicatio n Not available Not available Not available 02/22/2020 56414 8001 SNOMED Dinorah winters [facility] 0 17:03:45 591 Substance with sulfonami de structure and antibacte rial mechanism of action (substanc e) medicatio n Not available Not available Not available 02/22/2020 81873 8003 SNOMED Dinorah Goldsmith [facility] 0 17:03:54 Medications Name Sig Start Date Stop Date Status Note LastModified by Organization Details LastModified Time Cytotec 200 mcg tablet insert 4 by by vagina route all at once 03/14 completed Prescrib ed Elsewher e: No Locat ion: [facility] odify By: amkuhl Eris ncounter DateTime : 03/08/20 15 03:00:00 PM Not Available Not Available Not Available valacyclo vir 1 gram tablet TAKE 1 TABLET BY MOUTH EVERY DAY active Not Available Not Available No t Available Zithromax Z-Mervin 250 mg tablet take 2 tablet (500MG) by oral route every day for 1 day then 1 tablet (250 mg) by oral route once daily for 4 days 04/23 completed Prescrib ed Elsewher e: No Locat ion: [facility] odify By: silvio Schulte ncounter DateTime : 04/19/20 13 04:00:00 PM Not Available Not Available Not Available clindamyc in HCl 150 mg capsule TAKE 2 CAPSULES BY MOUTH NOW THEN 1 CAPSULE THREE TIMES DAILY UNTIL ALL TAKEN 07/08 completed Not Available Not Available Not Available levothyro xine 25 mcg tablet active Not Available Not Available Not Available levothyro xine 75 mcg tablet Take 1 tablet every day by oral route. 05/16 completed Not Available Not Available Not Available levothyro xine 88 mcg tablet TAKE 1 TABLET BY MOUTH EVERY DAY 07/08 completed Not Available Not Available Not Available benzonata te 100 mg capsule 07/08 completed Not Available Not Available Not Available levothyro xine 50 mcg tablet TK 1 T PO D 10/21 completed Not Available Not Available Not Available cephalexi n 500 mg capsule TAKE 1 CAPSULE BY MOUTH EVERY 6 HOURS FOR 7 DAYS 08/19 completed Not Available Not Available Not Available levothyro xine 125 mcg tablet 10/21 completed Not Available Not Available Not Available folic acid 1 mg tablet TAKE 3 TABLET BY ORAL ROUTE EVERY DAY 01/05 completed Prescrib ed Elsewher e: No Locat ion: Noel schulte [facility] odify By: kristina pepe DateTime : 11/19/19 16 11:33:36 AM Not Available Not Available Not Available Valtrex 500 mg tablet TAKE 1 TABLET BY ORAL ROUTE 2 TIMES EVERY DAY 07/08 completed Prescrib ed Elsewher e: No Locat ion: [facility] odify By: volodymyr torres DateTime : 07/20/20 16 08:58:16 AM Not Available Not Available Not Available Vitamin D2 1,250 mcg (50,000 unit) capsule take 1 capsule (65661FW ITS) by oral route every week 05/26 completed Prescrib ed Elsewher e: No Locat ion: [facility] odify By: meera stallings DateTime : 01/29/20 16 09:34:48 AM Not Available Not Available Not Available cefdinir 300 mg capsule 10/21 completed Not Available Not Available Not Available Vitamin 27 mg iron-0.8 mg tablet take 1 tablet by oral route every day 03/20 completed Prescrib ed Elsewher e: Yes L[facility] odify By: silvio stallings DateTime : 03/20/20 13 02:30:00 PM Not Available Not Available Not Available cyclobenz aprine 5 mg tablet TK 1 T PO QD PRF PAIN 07/08 completed Not Available Not Available Not Available nitrofura ntoin monohydra te/macroc rystals 100 mg capsule 08/19 completed Not Available Not Available Not Available Vitamin B-12 active Not Available Not Available Not Available Synthroid 08/27 completed Not Available Not Available Not Available Valtrex 08/27 completed Not Available Not Available Not Available Tirosint 50 mcg capsule take 1 capsule (50MCG) by oral route every day 05/26 completed Prescrib ed Elsewher e: No [facility] By: meera stallings DateTime : 01/02/20 16 03:23:46 PM Not Available Not Available Not Available Tirosint 25 mcg capsule take 1 capsule (25MCG) by oral route every day 12/15 completed Prescrib ed Elsewher e: Yes Loca tion: [facility] odify By: lamonte stallings DateTime : 02/18/20 13 09:30:00 AM Not Available Not Available Not Available Triveen-D uo DHA 29 mg-1 mg-400 mg oral pack take 1 by Oral route every day 09/03 completed Prescrib ed Elsewher e: No Locat ion: [facility] odify By: volodymyr torres DateTime : 08/21/20 15 11:19:27 AM Not Available Not Available Not Available + DHA 08/27 completed Not Available Not Available Not Available PreTAB 29 mg-1 mg tablet TAKE 1 TABLET BY MOUTH ONCE DAILY active Not Available Not Available No t Available Prenate Mini (ferrous asparto glycinate ) 18 mg-1 mg-350 mg capsule Take 1 capsule every day by oral route. 08/27 completed Not Available Not Available Not Available Rulavite DHA 27 mg iron-1 mg-300 mg capsule TAKE ONE CAPSULE BY MOUTH ONCE DAILY 02/24 completed Prescrib ed Elsewher e: No Locat ion: [facility] odify By: volodymyr torres DateTime : 02/25/20 09:14:27 AM Not Available Not Available Not Available Se-Peace 19 29 mg iron-1 mg tablet TAKE ONE TABLET BY MOUTH DAILY 2021 active Not Available Not Available Not Avai lable Vitals Date Recorded Body height Body mass index (BMI) Body weight Provider Name and Address Organization Details Last Updated DateTime 10/21/2021 153.67 cm 40 kg/m2 08306.21 g Dinorah Goldsmith [facility] 10/21/2021 11:56:50 Date Recorded Systolic blood pressure Diastolic blood pressure Provider Name and Address Organization Details Last Updated DateTime 10/21/2021 132 mm[Hg] 80 mm[Hg] Babs Fletcher, [facility] [address], [place], [address], [facility] 10/21/2021 12:25:50 Date Recorded Body height Body mass index (BMI) Body weight Systolic blood pressure Diastolic blood pressure Provider Name and Address Organization Details Last Updated DateTime 09/13/2020 152.4 cm 40.4 kg/m2 39147.62 059 g 132 mm[Hg] 82 mm[Hg] Molly Stevens [facility] 0 17:04:59 Date Recorded Body height Body mass index (BMI) Body weight Systolic blood pressure Diastolic blood pressure Provider Name and Address Organization Details Last Updated DateTime 09/20/2020 152.4 cm 39.8 kg/m2 80548.84 348 g 163 mm[Hg] 91 mm[Hg] Dinorah Goldsmith [facility] 0 11:31:10 Date Recorded Body height Body mass index (BMI) Body weight Systolic blood pressure Diastolic blood pressure Provider Name and Address Organization Details Last Updated DateTime 10/01/2020 152.4 cm 37.5 kg/m2 38456.74 g 169 mm[Hg] 88 mm[Hg] Becky Whitley [facility] 0 17:29:04 Date Recorded Body height Body mass index (BMI) Body weight Systolic blood pressure Diastolic blood pressure Provider Name and Address Organization Details Last Updated DateTime 11/01/2020 152.4 cm 38.1 kg/m2 58141.51 g 155 mm[Hg] 76 mm[Hg] Dinorah Goldsmith [facility] 1 14:46:28 Social History Question Answer Notes LastModified by Organizat ion Details LastModified Time Tobacco Smoking Status Never Smoker Dinorah Goldsmith [facility], [facility] 10/21/2021 11:57:20 Do You Have An Advance Directive? No [email or web address] Information not available 10/21/2021 What Is Your Level Of Alcohol Consumption? Occasional [email or web address] Information not available 02/23/2020 If You Are , What Was Your Level Of Alcohol Consumption Prior To ? Occasional [email or web address] Information not available 10/21/2021 Are You Blind Or Do You Have Difficulty Seeing? No [email or web address] Information not available 10/21/2021 What Is Your Level Of Caffeine Consumption? Heavy [email or web address] Information not available 10/21/2021 In The 14 Days Before Symptom Onset, Have You Had Close Contact With A Laboratory-confir med COVID-19 While That Case Was Ill? No [email or web address] Information not available 10/21/2021 In The 14 Days Before Symptom Onset, Have You Had Close Contact With A Person Who Is Under Investigation For COVID-19 While That Person Was Ill? No [email or web address] Information not available 10/21/2021 Have You Been To An Area Known To Be High Risk For COVID-19? No [email or web address] Information not available 10/21/2021 Are You Deaf Or Do You Have Serious Difficulty Hearing? No [email or web address] Information not available 10/21/2021 What Type Of Diet Are You Following? REGULAR Information not available 10/21/2021 Which Illicit Or Recreational Drugs Have You Used? None [email or web address] Information not available 10/21/2021 Do You Or Have You Ever Used E-cigarettes Or Vape? 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 No [email or web address] Information not available 10/21/2021 Illicit Drugs Pre- No [email or web address] Information not available 10/21/2021 What Was The Date Of Your Most Recent Tobacco Screening? 11/01/2020 [email or web address] Information not available 10/21/2021 Do You Use Protection During Sex? No [email or web address] Information not available 10/21/2021 Do You Use Your Seat Belt Or Car Seat Routinely? Yes [email or web address] Information not available 10/21/2021 Do You Have Smoke And Carbon Monoxide Detectors In Your Home? Yes [email or web address] Information not available 10/21/2021 Do You Or Have You Ever Used Smokeless Tobacco? Never Used Smokeless Tobacco [email or web address] Information not available 10/21/2021 How Much Tobacco Do You Smoke? No [email or web address] Information not available 02/23/2020 Smoking Pre- No [email or web address] Information not available 10/21/2021 Do You Feel Stressed (tense, Restless, Nervous, Or Anxious, Or Unable To Sleep At Night)? [id number] [email or web address] Information not available 10/21/2021 Do You Use Any Illicit Or Recreational Drugs? No [email or web address] Information not available 10/21/2021 Do You Use Sunscreen Routinely? No [email or web address] Information not available 10/21/2021 Have You Used IV Drugs? No [email or web address] Information not available 10/21/2021 Sex: Unknown Functional Status Question Answer Note LastModified by Organization D etails LastModified Time Are you able to walk? YESWOREST [email or web address] Information not available 10/21/2021 What is your exercise level? Moderate [email or web address] Information not available 02/23/2020 Mental Status None recorded. Family History Relationship Description Onset Age of this Age Resolved Age Notes LastModified by Organization Details LastModified Time Maternal Grandmother Malignant tumor of lung [email or web address] Not available 02/21 17:11:26 Mother Hypertensive disorder [email or web address] Not available 02/21 17:11:36 Mother Heart disease [email or web address] Not available 02/22 17:48:55 Mother Hyperlipidem ia hbleier Not available 2021 11:40:38 Daughter Aicardi's syndrome [email or web address] Not available 2021 11:40:38 Medical History Condition Response Allergies (Food, seasonal, environmental ) N Other N Breast Cancer N Drug/Latex Allergies/Reactions N Blood Transfusion N Dermatologic Disorders N Lung Disease N Defects or Inherited Disease N Breast Problem N Gestational Diabetes N Hematologic disorders N Anesthesia Complications N History of STI Y Deep Vein Thrombosis N Polycystic ovary syndrome N Anxiety Disorder N Autoimmune disease N Arthritis N Infertility N Polyps N Acid Reflux (GERD) N History of abnormal pap Y Cancer N Stroke N Varicosities N Neurologic/Epilepsy Y Endometriosis N High Cholesterol N Headaches N Fibromyalgia N Kidney Disease N Heart Problems N Kidney or Bladder Problems N Thyroid Problems Y GI Problems N Eating Disorder N Anemia N Art (IVF or FET) N Psychiatric Illness N Ovarian Cancer N Diabetes N Pulmonary (TB, Asthma) N Hepatitis/Liver Disease N No Past Medical History N Eczema N Urinary Tract Infection N Abuse/Domestic Violence N Asthma N Trauma/Violence N Depression/ depression N Heart Disease N Pre-Eclampsia N Hypertension N Osteoporosis N Thrombophilias N Gynecological History Statement/Question Response Abnormal Pap Y Date of LMP 09/27/2021 STIs/STDs Y Was last menstrual period normal Y Date of Last Pap Smear 10/21/2021 Current Control Method None Age at First Child 21 Desired Control Method LMP Approximate Obstetrics History GPAL:G 6 P 5 0 1 5 Type Value Full Term 5 Spontaneous 1 Living 5 Total 6 Past Encounters Encounter ID Performer Location Encounter Start Date Encounter Closed Date Diagnosis/Indication Diagnosis SNOMED-CT Code Diagnosis ICD10 Code Diagnosis Note [id number] [address] [address] 02/23/2020 12:22:53 02/23/2020 16:12:14 Amenorrhea 21686907 N91.2 [id number] Oneil Morales MD [place] [address] [address] 03/12/2020 14:08:17 03/12/2020 16:16:56 Routine care 017146386 Z34.81 [id number] [facility] [address] [place] [address] 03/12/2020 14:08:58 03/12/2020 16:38:06 screening 627826029 Z36.82 [id number] [facility] [address] [address] 04/09/2020 11:09:19 04/09/2020 11:53:57 Routine care 375650684 Z34.02 [id number] [facility] [address] [place] [address] 05/14/2020 10:37:01 05/14/2020 11:56:25 screening for malformation 947219230 Z36.3 O09.522 Z3A.21 [id number] [facility] [address] [place] [address] 05/14/2020 10:37:17 05/14/2020 12:25:03 Routine care 445175030 Z34.02 [id number] Debbi Diaz [facility] [address],[place] [address] 06/04/2020 11:42:37 06/04/2020 13:27:43 Routine care 814647511 Z34.02 [id number] Debbi Diaz [facility] [address],[place] [address] 07/05/2020 10:31:32 07/05/2020 12:06:02 Routine care 240560141 Z34.02 [id number] Oneil Morlaes MD [place] [address] [address] 07/19/2020 11:19:45 07/19/2020 11:39:00 screening 823102969 Z36.89 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 [id number] Debbi Diaz [facility] [address] [address] 08/02/2020 10:32:28 08/02/2020 14:31:55 Routine care 407402621 Z34.02 [id number] [facility] [address] [address] 08/02/2020 10:33:24 08/02/2020 14:30:28 Uterine size for dates discrepancy 835247724 O26.843 [id number] Debib Diaz [facility] [address],[place] [address] 08/16/2020 10:33:24 08/16/2020 12:29:45 Routine care 475448269 Z34.02 [id number] Arabella Chery MD [place] [address] [place] [address] 08/27/2020 10:43:55 08/27/2020 12:14:49 Herpes simplex 24100961 B00.9 Multigravi da of advanced maternal age 325340679 O09.529 [id number] Oniel Morales MD [place] [address] [address] 09/03/2020 11:12:50 09/03/2020 11:34:57 Routine care 132300880 Z34.81 [id number] Oneil Morales MD [place] [address] [address] 09/13/2020 16:47:36 09/13/2020 17:41:40 Routine care 966621557 Z34.81 [id number] Debbi Diaz [facility] [address] [address] 09/20/2020 11:10:40 09/20/2020 11:56:15 Routine care 536342467 Z34.02 [id number] Arabella Chery MD [place] [address] [address] 10/01/2020 17:15:54 10/01/2020 18:01:32 Cloudy urine 0777972 R82.90 Acute cystitis 72864443 N30.01 Acute urin fiona tract infection 135104009 N39.0 [id number] Debbi Diaz [facility] [address],[place] [address] 11/01/2020 14:27:13 11/04/2020 16:08:48 care 823235550 Z39.2 [id number] Babs Fletcher [facility] [address] [address] 10/21/2021 11:32:51 10/21/2021 12:56:39 Gynecologic examination 26090689 Z01.419 Suggested Calcium with Vitamin D 1200-1500m g daily. Patient advised to get an annual flu shot in the fall and she could obtain at [facility] or [facility] care clinic. Also to obtain TDap vaccinatio n if you have not had one in the last 10 years. Recommend yearly mammograms . Encouraged monthly self breast exams. Encourage safe sexual practices, to use condoms and limit partners if not already in a monogamous relationsh ip. Engage in daily exercise of low impact aerobic exercise 45-60 minutes 4-5 times weekly. Avoid tobacco and illicit drugs as well as using moderation with alcohol intake less than 1-2 8 oz beverages daily. This lifestyle behavior pattern will lead to less health conditions and longer life span. If BMI greater than 25 weight watchers or dietary consult advised. All questions have been answered. Patient appears to understand informatio n, but if you have any questions please call or respond to this email. Pap/hpvMam mo orderedSTD sentBreast feeding 1yo--not exclusivel y since she is eating table food as well.No other issues or concerns.G enetic screen discussed Screening mammography 24 532535 Z12.31 Health Concerns Section Related Observation LastModified by Organization Detai ls LastModified Time None Recorded Concern Status LastModified by Organization Details LastModified Time None Recorded Advance Directives Directive N: Payers Encounter Date Sequence Insurance Name Policy Number Policy Kraus Covered Member ID Kraus Member ID Guarantor Name 09/13/2020 1 [place] [id number] Silviano Foremane [id number] August[place] L [place] 09/13/2020 2 [place] Augusta L [place] [id number] Augusta L [place] 09/20/2020 1 [place] [id number] Silviano W [place] [id number] Augusta L [place] 09/20/2020 2 [place] Augusta L [place] [id number] Augusta L [place] 10/01/2020 1 [place] [id number] Silviano W [place] [id number] Augusta L [place] 10/01/2020 2 [place] Augusta L [place] [id number] Augusta L [place] 11/01/2020 1 [place] [id number] Silviano W [place] [id number] Augusta L [place] 11/01/2020 2 [place] Augusta L [place] [id number] Augusta L [place] 10/21/2021 1 [place] [id number] Silviano W [place] [id number] Augusta L [place] 10/21/2021 2 [place] Augusta L [place] [id number] Augusta Foremane Notes Date Note Type Note Provider Name and Address Organization Details Recorded Time 10/01/2020 text/html Pt is a 40yo here for evaluation of a urinary tract infection. of daughter Jennifer on 09/20. Still bleeding. Last few days urine with odor, certain it is not vaginal odor. Tender over bladder. Uterine cramping pretty much gone. Urine cloudy. Also has a bulge at vagina since delivery. Is constipated also. . ALL to PCN (rash as baby, thinks has had cephalosporins) and sulfa. Additional concerns include: Sexually active:no Contraception: no PP visit scheduled in 3 weeks. Arabella Chery MD [address], [place], [address], [facility] 10/01/2020 18:00:50 11/01/2020 text/html VisitReported bypatient.Notes:pp visit, doing well, declines bcm, , bleeding stopped, c/o increased right hip pain since delivery Debbi Diaz CNM [address], [place], [address], [facility] 11/01/2020 15:32:40 10/21/2021 text/html Annual GYNReport ed bypatient.History:n o gynecologic complaints Menstrual cycle:Normal menses Urinary symptoms:No hematuria; No incontinence Vulva:No genital lesion Vagina:Normal vaginal discharge Breast:No breast pain; No breast lump; No nipple discharge Current Contraception: control not practiced Sexual complaints:No sexual complaints; No pain during intercourse; Normal libido Menopausal Symptoms:No menopausal symptoms; Normal vaginal lubrication Psychological symptoms:No depression; No anxiety; No PMDD Preventive measures:Encourage self breast examination; Encourage regular exercise; Encourage no tobacco use; Encourage regular mammograms starting age 40; Followed with Q3 year pap smear and high risk HPV typing; Needs to schedule mammogram VIJAYA Grajeda- [address], [place], [address], [facility] 10/21/2021 12:27:29 OBGyn Episode Ob Episode Information Episode Created Date Number of Fetuses Patient Bloodtype Patient rh Status Prepregnancy Weight lbs Domestic Partner Domestic Partner Phone Father Name [employer] Supervisor Status 02/22/20 20 1 CLOSED Fetus Data First Name Last Name Admitted to NICU Weight (g) Sex Living Outcome Pediatric Complications Fetus ID Race Codes Race Delivery Type 2438.05 7 F Full Term 1469 Vaginal Delivery Micah Calculation Initial Micah Date Initial Exam Date Initial Exam Provider Initial Ultrasound Date Last Menstrual Period Date Ultra Sound Weeks Gestation 0 Eighteen To Twenty Week Micah Update Ultra Sound Date Fundal Height At Umbil Quickening Date Ultra Sound Latest Weeks Gestation Final Micah Confirmed By Final Micah Confirmed Date Final Micah Date Ultra Sound Latest Days Gestation 0 0 Menstrual History Last Menstrual Date Menses Monthly On Bcp Conception Prior Menses Frequency Hcg Plus Date Menarche Onset Age Delivery Information Delivery Date Delivery Type Labor Anesthesia Weeks Gestation Incision Type Labor Labor Length Hrs Delivered By Post Complications Tubal Sterilization Discharge Date Comments 1 37 Alejandr e a ---jaundi ce Discharge Information Feeding Method Contraceptive Method Maternal HG B and HCT Levels Ob Episode Information Episode Created Date Number of Fetuses Patient Bloodtype Patient rh Status Prepregnancy Weight lbs Domestic Partner Domestic Partner Phone Father Name [employer] Supervisor Status 02/22/20 1 CLOSED Fetus Data First Name Last Name Admitted to NICU Weight (g) Sex Living Outcome Pediatric Complications Fetus ID Race Codes Race Delivery Type 2778.25 1 F Full Term 1470 Vaginal Delivery Micah Calculation Initial Micah Date Initial Exam Date Initial Exam Provider Initial Ultrasound Date Last Menstrual Period Date Ultra Sound Weeks Gestation 0 Eighteen To Twenty Week Micah Update Ultra Sound Date Fundal Height At Umbil Quickening Date Ultra Sound Latest Weeks Gestation Final Micah Confirmed By Final Micah Confirmed Date Final Micah Date Ultra Sound Latest Days Gestation 0 0 Menstrual History Last Menstrual Date Menses Monthly On Bcp Conception Prior Menses Frequency Hcg Plus Date Menarche Onset Age Delivery Information Delivery Date Delivery Type Labor Anesthesia Weeks Gestation Incision Type Labor Labor Length Hrs Delivered By Post Complications Tubal Sterilization Discharge Date Comments 4 40 daughter eyad has aicardi syndrome Discharge Information Feeding Method Contraceptive Method Maternal HG B and HCT Levels Ob Episode Information Episode Created Date Number of Fetuses Patient Bloodtype Patient rh Status Prepregnancy Weight lbs Domestic Partner Domestic Partner Phone Father Name [employer] Supervisor Status 02/22/20 20 1 CLOSED Fetus Data First Name Last Name Admitted to NICU Weight (g) Sex Living Outcome Pediatric Complications Fetus ID Race Codes Race Delivery Type 3401.94 F Full Term 1472 Vaginal Delivery Micah Calculation Initial Micah Date Initial Exam Date Initial Exam Provider Initial Ultrasound Date Last Menstrual Period Date Ultra Sound Weeks Gestation 0 Eighteen To Twenty Week Micah Update Ultra Sound Date Fundal Height At Umbil Quickening Date Ultra Sound Latest Weeks Gestation Final Micah Confirmed By Final Micah Confirmed Date Final Micah Date Ultra Sound Latest Days Gestation 0 0 Menstrual History Last Menstrual Date Menses Monthly On Bcp Conception Prior Menses Frequency Hcg Plus Date Menarche Onset Age Delivery Information Delivery Date Delivery Type Labor Anesthesia Weeks Gestation Incision Type Labor Labor Length Hrs Delivered By Post Complications Tubal Sterilization Discharge Date Comments 6 40 Adrienna - spina bfida Discharge Information Feeding Method Contraceptive Method Maternal HG B and HCT Levels Ob Episode Information Episode Created Date Number of Fetuses Patient Bloodtype Patient rh Status Prepregnancy Weight lbs Domestic Partner Domestic Partner Phone Father Name [employer] Supervisor Status 02/22/20 1 CLOSED Fetus Data First Name Last Name Admitted to NICU Weight (g) Sex Living Outcome Pediatric Complications Fetus ID Race Codes Race Delivery Type 2692.97 5704 F Full Term 1471 Vaginal Delivery Micah Calculation Initial Micah Date Initial Exam Date Initial Exam Provider Initial Ultrasound Date Last Menstrual Period Date Ultra Sound Weeks Gestation 0 Eighteen To Twenty Week Micah Update Ultra Sound Date Fundal Height At Umbil Quickening Date Ultra Sound Latest Weeks Gestation Final Micah Confirmed By Final Micah Confirmed Date Final Micah Date Ultra Sound Latest Days Gestation 0 0 Menstrual History Last Menstrual Date Menses Monthly On Bcp Conception Prior Menses Frequency Hcg Plus Date Menarche Onset Age Delivery Information Delivery Date Delivery Type Labor Anesthesia Weeks Gestation Incision Type Labor Labor Length Hrs Delivered By Post Complications Tubal Sterilization Discharge Date Comments 4 40 Lucila a Discharge Information Feeding Method Contraceptive Method Maternal HG B and HCT Levels Ob Episode Information Episode Created Date Number of Fetuses Patient Bloodtype Patient rh Status Prepregnancy Weight lbs Domestic Partner Domestic Partner Phone Father Name [employer] Supervisor Status 02/22/20 20 1 CLOSED Fetus Data First Name Last Name Admitted to NICU Weight (g) Sex Living Outcome Pediatric Complications Fetus ID Race Codes Race Delivery Type , Spontane ous 1473 Micah Calculation Initial Micah Date Initial Exam Date Initial Exam Provider Initial Ultrasound Date Last Menstrual Period Date Ultra Sound Weeks Gestation 0 Eighteen To Twenty Week Micah Update Ultra Sound Date Fundal Height At Umbil Quickening Date Ultra Sound Latest Weeks Gestation Final Micah Confirmed By Final Micah Confirmed Date Final Micah Date Ultra Sound Latest Days Gestation 0 0 Menstrual History Last Menstrual Date Menses Monthly On Bcp Conception Prior Menses Frequency Hcg Plus Date Menarche Onset Age Delivery Information Delivery Date Delivery Type Labor Anesthesia Weeks Gestation Incision Type Labor Labor Length Hrs Delivered By Post Complications Tubal Sterilization Discharge Date Comments 5 2014 miscarria ge Discharge Information Feeding Method Contraceptive Method Maternal HG B and HCT Levels Ob Episode Information Episode Created Date Number of Fetuses Patient Bloodtype Patient rh Status Prepregnancy Weight lbs Domestic Partner Domestic Partner Phone Father Name [employer] Supervisor Status 03/12/20 20 1 O Negative 186 CLOSED Fetus Data First Name Last Name Admitted to NICU Weight (g) Sex Living Outcome Pediatric Complications Fetus ID Race Codes Race Delivery Type 2863.29 95 F Full Term 1918 Vaginal Delivery Problems Problem Notes [facility] u/s only and 06/11/20 u/s only complete anatomy Problem Name Start Date End Date Resolution Snomed Code Not e Lumbar spinal meningocele 844220881 History of thyroid disorder 470799670 07/19 TSH WNL Herpes simplex TREATMENT [id number] hx - SP tx'd 08/27 valtrex Micah Calculation Initial Micah Date Initial Exam Date Initial Exam Provider Initial Ultrasound Date Last Menstrual Period Date Ultra Sound Weeks Gestation 09/24/2020 03/12/2020 02/23/2020 9 Eighteen To Twenty Week Micah Update Ultra Sound Date Fundal Height At Umbil Quickening Date Ultra Sound Latest Weeks Gestation Final Micah Confirmed By Final Micah Confirmed Date Final Micah Date Ultra Sound Latest Days Gestation 0 [email or web address] 03/12/2020 09/24/20 20 0 Pre- Flowsheet Flowsheet Date 03/12/2020 Evans Score Blood Edema Fundus Height Fundus Units Glucose Ketones Leukocytes Nitrite Labor Signs Protein Cervic Dilation Cervic Effacement Cervic Station Type Weight in lbs Pre/Post Dialysis Refused BP Diastolic BP Location Tested BP Systolic BP Type Fetus Heart Rate Present Fetus Movement Comments Flowsheet Date 03/12/2020 Evans Score Blood Edema Fundus Height Fundus Units Glucose Ketones Leukocytes Nitrite Labor Signs Protein Cervic Dilation Cervic Effacement Cervic Station 12 trace Type Weight in lbs Pre/Post Dialysis Refused Weight 188.907113417983 BP Diastolic BP Location Tested BP Systolic BP Type 77 138 Fetus Heart Rate Present A 164 Fetus Movement A No Comments Flowsheet Date 04/09/2020 Evans Score Blood Edema Fundus Height Fundus Units Glucose Ketones Leukocytes Nitrite Labor Signs Protein Cervic Dilation Cervic Effacement Cervic Station neg trace trace Type Weight in lbs Pre/Post Dialysis Refused Weight 192.939590921417 BP Diastolic BP Location Tested BP Systolic BP Type 76 127 Fetus Heart Rate Present Fetus Movement A No Comments PATIENT STATES THAT HAND GOE S TO SLEEP AND HAS TINGLING, SOME SWELLING AND NAUSEA. reviewed weight gain, nutrition, AFP and TSH drawn today f/u 4 week anatomy scan and visitUDS NEGATIVE Flowsheet Date 05/14/2020 Evans Score Blood Edema Fundus Height Fundus Units Glucose Ketones Leukocytes Nitrite Labor Signs Protein Cervic Dilation Cervic Effacement Cervic Station Type Weight in lbs Pre/Post Dialysis Refused BP Diastolic BP Location Tested BP Systolic BP Type Fetus Heart Rate Present Fetus Movement Comments Flowsheet Date 05/14/2020 Evans Score Blood Edema Fundus Height Fundus Units Glucose Ketones Leukocytes Nitrite Labor Signs Protein Cervic Dilation Cervic Effacement Cervic Station neg trace trace Type Weight in lbs Pre/Post Dialysis Refused Weight 195.042826239110 BP Diastolic BP Location Tested BP Systolic BP Type 74 128 Fetus Heart Rate Present Fetus Movement A Yes Comments patient states that having h and tingling and numbness and swelling, precautions, anatomy incomplete CL 2.5 cm, f/u MFM Flowsheet Date 06/04/2020 Evans Score Blood Edema Fundus Height Fundus Units Glucose Ketones Leukocytes Nitrite Labor Signs Protein Cervic Dilation Cervic Effacement Cervic Station neg trace trace Type Weight in lbs Pre/Post Dialysis Refused Weight 197.718530326071 BP Diastolic BP Location Tested BP Systolic BP Type 74 115 Fetus Heart Rate Present Fetus Movement A Yes Comments patient is having carpel michelle kameron and hand tingling, cramping in leg on Wednesday evening, swelling in ankles and some BH contractions, precautions reviewed Flowsheet Date 07/05/2020 Evans Score Blood Edema Fundus Height Fundus Units Glucose Ketones Leukocytes Nitrite Labor Signs Protein Cervic Dilation Cervic Effacement Cervic Station neg trace 26 trace Type Weight in lbs Pre/Post Dialysis Refused Weight 201.069906528420 BP Diastolic BP Location Tested BP Systolic BP Type 79 121 Fetus Heart Rate Present A 141 Fetus Movement A Yes Comments patient states that having s ome BH contractions, hand numbness, swelling, heartburn , and nausea, rec tsh today pt declined, plan growth , precautions Flowsheet Date 07/19/2020 Evans Score Blood Edema Fundus Height Fundus Units Glucose Ketones Leukocytes Nitrite Labor Signs Protein Cervic Dilation Cervic Effacement Cervic Station neg trace 31 trace Type Weight in lbs Pre/Post Dialysis Refused Weight 203.29826446702 BP Diastolic BP Location Tested BP Systolic BP Type 77 128 Fetus Heart Rate Present A 145 Fetus Movement A Yes Comments thyroid today Flowsheet Date 08/02/2020 Evans Score Blood Edema Fundus Height Fundus Units Glucose Ketones Leukocytes Nitrite Labor Signs Protein Cervic Dilation Cervic Effacement Cervic Station Type Weight in lbs Pre/Post Dialysis Refused BP Diastolic BP Location Tested BP Systolic BP Type Fetus Heart Rate Present Fetus Movement Comments Flowsheet Date 08/02/2020 Evans Score Blood Edema Fundus Height Fundus Units Glucose Ketones Leukocytes Nitrite Labor Signs Protein Cervic Dilation Cervic Effacement Cervic Station neg trace trace Type Weight in lbs Pre/Post Dialysis Refused Weight 203.49276967728 BP Diastolic BP Location Tested BP Systolic BP Type 75 123 Fetus Heart Rate Present Fetus Movement A Yes Comments patient is having heartburn, BH contractions, swelling, nausea and acid reflux efw 29% 4lb 3 oz, ob precautions Flowsheet Date 08/16/2020 Evans Score Blood Edema Fundus Height Fundus Units Glucose Ketones Leukocytes Nitrite Labor Signs Protein Cervic Dilation Cervic Effacement Cervic Station neg trace 33 cm trace Type Weight in lbs Pre/Post Dialysis Refused Weight 205.366030469207 BP Diastolic BP Location Tested BP Systolic BP Type 81 123 Fetus Heart Rate Present A 143 Present Fetus Movement A Yes Comments patient states that having s ome swelling, BH contractions and some constipation issues, ok for colace, precautions reviewed Flowsheet Date 08/27/2020 Evans Score Blood Edema Fundus Height Fundus Units Glucose Ketones Leukocytes Nitrite Labor Signs Protein Cervic Dilation Cervic Effacement Cervic Station neg trace 34 trace 1cm 50% -3 Type Weight in lbs Pre/Post Dialysis Refused Weight 203.44469108752 BP Diastolic BP Location Tested BP Systolic BP Type 75 126 Fetus Heart Rate Present A 140 Fetus Movement A Yes Comments Doing ok. GBS done with sens itivities if pos. valtrex sent. labor precautions. Flowsheet Date 09/03/2020 Evans Score Blood Edema Fundus Height Fundus Units Glucose Ketones Leukocytes Nitrite Labor Signs Protein Cervic Dilation Cervic Effacement Cervic Station 37 trace Type Weight in lbs Pre/Post Dialysis Refused Weight 205.981755838072 BP Diastolic BP Location Tested BP Systolic BP Type 82 R arm 130 sitting Fetus Heart Rate Present A 145 Fetus Movement A Yes Comments no complaints, does not want to be induced Flowsheet Date 09/13/2020 Evans Score Blood Edema Fundus Height Fundus Units Glucose Ketones Leukocytes Nitrite Labor Signs Protein Cervic Dilation Cervic Effacement Cervic Station trace 2cm 60% -3 Type Weight in lbs Pre/Post Dialysis Refused Weight 207.142586746392 BP Diastolic BP Location Tested BP Systolic BP Type 82 R arm 132 sitting Fetus Heart Rate Present Fetus Movement A Yes Comments Flowsheet Date 09/20/2020 Evans Score Blood Edema Fundus Height Fundus Units Glucose Ketones Leukocytes Nitrite Labor Signs Protein Cervic Dilation Cervic Effacement Cervic Station neg trace trace 4cm 80% Type Weight in lbs Pre/Post Dialysis Refused Weight 204.932329675788 BP Diastolic BP Location Tested BP Systolic BP Type 91 163 Fetus Heart Rate Present Fetus Movement A Yes Comments patient states that having p ain, conractions, discharge and swelling, rpt bp same, sent to ld Menstrual History Last Menstrual Date Menses Monthly On Bcp Conception Prior Menses Frequency Hcg Plus Date Menarche Onset Age Genetic Screening And Infection History Question Response Note Mental Retardation/Autism false Patient's Age Will Be 35 Years Or Older At Estim ated Date of Delivery false Thalassemia (English, Mongolian, Mediterranean, Or Background): MCV < 80 false Neural Tube Defect (Meningomyelocele, Spina Bifi da, Or Anencephaly) false Congenital Heart Defect false Down Syndrome false Enoc-Sachs (eg, Worship, Cajun, Hebrew-Albanian) f alse Zoey Disease false Sickle Cell Disease Or Trait () false Hemophilia Or Other Blood Disorders false Muscular Dystrophy false Cystic Fibrosis false [place]'s Chorea false Intellectual Disability/Autism false If Yes, Was Person Tested For Fragile X? false Other Inherited Genetic Or Chromosomal Disorder false Maternal Metabolic Disorder (eg, Type 1 Diabetes , PKU) false Patient Or Baby's Father Had A Child With Defects Not Listed Above false Recurrent Loss, Or A Stillbirth false Medications (including Suppl ements, Vitamins, Herbs, OTC Drugs), Illicit/Recreational Drugs, Alcohol false If Yes, Agent(s) And Strength/Dosage false Any Other Genetic History false Live With Someone With TB Or Exposed To TB false Patient Or Partner Has History Of Genital Herpes false Rash Or Viral Illness Since Last Menstrual Perio d false History Of STD, Gonorrhea, Chlamydia, HPV, Syphi lis true HSV Other Infection History false History of HIV false History of Hepatitis false Prior GBS-infected child false Hemoglobinopathy Or Carrier false Other Structural Defect false Recent Travel History Outside of Country false Delivery Information Delivery Date Delivery Type Labor Anesthesia Weeks Gestation Incision Type Labor Labor Length Hrs Delivered By Post Complications Tubal Sterilization Discharge Date Comments 0 39.3 Discharge Information Feeding Method Contraceptive Method Maternal HG B and HCT Levels
--- OUTSIDE RECORDS SUMMARY | 2024-12-15 13:53 | XMS_ITS | Encounter Summary ---
Author Organization [facility] Address [address] [place] [address] Care Team Providers Care Media Law Faculty Member Name Role Phone Nadja Rodriguez [facility] Primary Care Provider [phone] Encounter Details Date Type Department Care Team (Late st Contact Info) Description 03/12/2023 Bubblest Message Enc [facility] [address] [place] [address] Nadja Rodriguez [facility] [address] [place] [id number] Medicane Social History Tobacco Use Types Packs/Day Years [...] Sex Assigned at Female 12/13/2023 10:05 AM API PRODUCT MANAGER Legal Sex Female 12:24 AM CDT Gender Identity Female 12/13/2023 10:05 AM API PRODUCT MANAGER Sexual Orientation Not on file COVID-19 Exposure Response Date Recorded In the last 10 days, have yo u been in contact with someone who was confirmed or suspected to have Coronavirus/COVID-19? No / Unsure 03/04/2023 10:47 AM CDT documented as of this encounter Progress Notes * Dinorah Adame LPN - 03/12/2023 3:44 PM CDT Please review/advise. documented in this encounter Plan of Treatment Upcoming Encounters Date Type Department Care Team (Late st Contact Info) Description 01/22/2025 1:20 PM CDT Office Visit [facility] [address] [place], [place] [id number] Nadja Rodriguez FNP [facility] [address] [place], [place] [id number] documented as of this encounter Visit Diagnoses Not on filedocumented in this encounter Care Teams Media Law Faculty Member Relationship Specialty Start Date End Date Nadja Rodriguez FNP [address] [place] [address] Dr [place], [place] [phone] PCP - General Nurse Practitioner Family 11/12/20 documented as of this encounter
--- OUTSIDE RECORDS SUMMARY | 2024-12-15 13:53 | XMS_ITS | Encounter Summary ---
Author Organization [facility] Address [address] [place] [address] Care Team Providers Care Parts Product Analyst Name Role Phone Nadja Rodriguez [facility] Primary Care Provider [phone] Encounter Details Date Type Department Care Team (Latest Contact Info) Description 12/15/2024 Travel Social History Tobacco Use Types Packs/Day Years [...] Sex Assigned at Female 12/13/2023 10:05 AM PROGRAM MANAGER TRANSPORTATION Legal Sex Female 12:24 AM CDT Gender Identity Female 12/13/2023 10:05 AM PROGRAM MANAGER TRANSPORTATION Sexual Orientation Not on file documented as of this encounter Plan of Treatment Upcoming Encounters Date Type Department Care Team (Late st Contact Info) Description 01/22/2025 1:20 PM CDT Office Visit [facility] [address] [place] [address] Nadja Rodriguez FNP [address] [place] [phone] documented as of this encounter Visit Diagnoses Not on filedocumented in this encounter Care Teams Parts Product Analyst Relationship Specialty Start Date End Date Nadja Rodriguez FNP [facility] [address] [place] [id number] PCP - General Nurse Practitioner Family 11/12/20 documented as of this encounter
--- OUTSIDE RECORDS SUMMARY | 2024-12-15 13:54 | XMS_ITS | Patient Health Summary ---
Author Organization [facility] Address [address] [place] [address] Care Team Providers Care Director Machine Name Role Phone Unavailable Primary Care Provider Unavailabl e Note from [facility],non-owned Affiliates and Associated Physician Practices is amultiple site organization consisting of ambulatory clinics and hospital sitesin [place], [place], [place] and [place]. This disclosure is being madepursuant to the Care Everywhere program and may not contain all information available regarding this patient. Last updated 18.[facility] OpenBook Allergies * Latex(Rash) -Low Criticality * Penicillins(Rash) -Low Criticality * Sulfa Drugs(Rash) -Low Criticality Medications * Be aware that medications may not be up to date on this document. Alwaysverify current medications with the patient. * levothyroxine (SYNTHROID) 50 MCG tablet Take 50 mcg by mouth daily before breakfast. Active Problems Problem Noted Date Diagnosed Date complicated by cer vical shortening in second trimester 05/20/2020 Supervision of other high-risk 013 Resolved Problems Problem Noted Date Diagnosed Date Resolved Date abnormality in pregnan cy- Unilateral left ventriculomegaly 09/27/2013 11/20/2013 abnormality affecting management of mother, antepartum condition or complication 07/11/2013 05/20/2020 Encounter for supervision of other normal 07/07/2013 07/11/2013 Patient was born with spina bifida 05/30/2013 [...] Comments Blood Pressure 135/83 09/28/2013 10:35 AM LABORATORY [facility] GLASS GR[facility]ER Pulse 96 09/28/2013 10:35 AM LABORATORY [facility] Temperature 36.1 C (96.9 F) 06/11/2020 10:07 AM CDT Respiratory Rate - - Oxygen Saturation - - Inhaled Oxygen Concentration - - Weight 87.5 kg (193 lb) 09/28/2013 10:35 AM LABORATORY [facility] Height - - Body Mass Index - - Procedures * SONOGRAM - COMPLETE(Performed 06/11/2020) Performed for complicated by cervical shortening in second trimester ([facility]), Short cervical length during in second trimester ([facility]) * SONOGRAM - COMPLETE(Performed 05/21/2020) Performed for complicated by cervical shortening in second trimester ([facility]) * SONOGRAM - COMPLETE(Performed 09/28/2013) Performed for abnormality in ([facility]) * MRI PELVIS WO CONTRAST(Performed 09/28/2013) Performed for abnormality in ([facility]) * SONOGRAM - COMPLETE(Performed 09/19/2013) Performed for Patient was born with spina bifida, Unspecified abnormality affecting management of mother, antepartum condition or complication ([facility]), Supervision of other high-risk ([facility]) * SONOGRAM - COMPLETE(Performed 07/11/2013) Performed for Hereditary Disease In Family Possibly Affecting Fetus, Affecting Management Of Mother, Antepartum Condition Or Complication ([facility]) * SONOGRAM - COMPLETE(Performed 05/30/2013) Performed for Supervision of normal ([facility]) Results * SONOGRAM - COMPLETE (06/11/2020 10:07 AM CDT) Only the most recent of6 resultswithin the time period is included. Anatomical Region Laterality Modality Other 06/11/2020 10:0 7 AM CDT Narrative 06/11/2020 10:15 PM CDT [facility] PHONE: FAX: Pat. Name: AUGUSTA SPANGLER. No: [id number] Study Date: 06/11/2020 10:07am , Age: 10 1980, 39 Pregnancies: 6, Para 4 Height: 60 in Weight: 188 lb LMP: Unknown GA by Base: 25w0d CAROLINA: 09/24/2020 GA by US: 24w5d CAROLINA: 09/26/2020 GA Selected: 25w0d (From [facility]) CAROLINA: 09/24/2020 Referring MD: Oneil Morales MD Case Picker: Luz Caal CPT4: 87682 BMI: 36.71 Hist/Ind: Shortened Cervical Length on Outside Scan AMA-LR NIPT Complete Anatomy MEASUREMENTS & AGE GROWTH EVALUATION Measurement GA Range Srce %for GA Ratios ----- ---- ------- BPD 6.0 cm 24w3d (76j9l-29i5x) Hadl BPD 23% FL/BPD 0.80 (0.71 - 0.87) HC 22.3 cm 24w2d (68j9o-63o8w) Hadl HC 11% FL/AC 0.24 (0.20 - 0.24* AC 20.0 cm 24w5d (46p3o-22y9k) Hadl AC 30% HC/AC 1.11 (1.01 - 1.20) FL 4.8 cm 26w1d (89s5g-38u3k) Hadl FL 72% CI 0.75 (0.70 - 0.86) HL 4.4 cm 26w1d (79y5r-24f5z) Reij ANGUIANO 69% GA for sonogram 24w5d (30l5c-90o4f) Weight Estimate: based on (BPD,HC,AC,FL) Hadlock Weight: 777 gm (664-890gm) Hadloc : 1lbs, 11oz Normal: 785 gm (589-981gm) Hadloc Wt% 47% for 25w0d Heart Rate: 144 bpm Amniotic Fluid Index: 05.0cm (Deepest Pocket) EVAL, PLACENTA Presentation: breech Umbilical Cord: 3 Vessels Placenta: posterior Heart Rate: 144 bpm Amniotic Fluid Volume: normal Anatomy!Normal!Abnormal!Suboptimal!Prev. Seen!Comments Cranium ! x ! ! ! x ! Mdl (CSP/Thal! ! ! ! x ! Ventricles ! ! ! ! x ! Choroid Plexu! ! ! ! x ! Cerebellum ! ! ! ! x ! Cisterna M. ! ! ! ! x ! Nuchal Fold ! ! ! ! x ! Profile ! ! ! ! x ! Nasal Bone ! ! ! ! x ! Lip ! ! ! ! x ! Spine ! x ! ! ! ! Lungs ! ! ! ! x ! 4 Chamber Hea! ! ! ! x ! LVOT ! ! ! ! x ! RVOT ! x ! ! ! ! 3 Vessel View! ! ! ! x ! Cross-over ! ! ! ! x ! Ductal Arch ! x ! ! ! ! Aortic Arch ! ! ! ! x ! Caval View ! x ! ! ! ! Situs ! ! ! ! x ! Diaphragm ! ! ! ! x ! Stomach ! x ! ! ! x ! Bowel ! ! ! ! x ! Kidneys ! ! ! ! x ! Bladder ! ! ! ! x ! 3 Vessel Cord! ! ! ! x ! Cord In! ! ! ! x ! Upper Extremi! ! ! ! x ! Hands ! ! ! ! x ! Lower Extreme! ! ! ! x ! Feet ! ! ! ! x ! External Ermelinda! ! ! ! x ! Placental Cor! ! ! ! x ! CLINICAL SUMMARY Study Number: 2 A single fetus is seen in breech presentation. The measurements today are consistent with appropriate interval growth. The CAROLINA is based on a prior ultrasound. The amniotic fluid volume is within normal limits. anatomy was technically adequate. No major malformations were seen within the limitations of ultrasound. IMPRESSION: Single, live, intrauterine at 25w0d size is within normal limits Amniotic fluid volume: within normal limits RECOMMEND: Follow up as clinically indicated Please be advised that these recommendations are being made in the best interest of our patients during the COVID 19 Pandemic. Thank you for allowing us the opportunity to care for your patient. Jerod Olmedo MD <Electronic Signature> 06/11/2020 10:15pm R Spencer Morales MD [facility] ORDERABLES * MRI PELVIS NON CONTRAST (09/28/2013 11:46 AM [facility]AT[facility]) Anatomical Region Laterality Modality Pelvis Magnetic Resonan ce 09/28/2013 1:22 PM [facility]ATORY [facility] Addenda This result is currently undergoing an addendum. Addendum by Adela Flores MD on 09/28/2013 2:44 PM [facility]AT[facility] MRI pelvis/ MRI History: 33 week gestational age with ventriculomegaly. Technique: Multiplanar, multisequence orthogonal with attention to the brain. This report will cover the maternal and body findings. The current lie is vertex with the spine to the mother's right. The placenta is posterior. A three-vessel cord is present. The overall volume of amniotic fluid appears grossly normal. The posterior elements of the maternal sacrum are absent with areas of scarring in the subcutaneous tissues. Visceral situs is normal in the chest and abdomen. The liver, gallbladder, stomach, kidneys, and urinary bladder appear normal. Evaluation of the extremities is limited by motion. No gross limb deficiencies are visible. Impression: Normal MRI of the body. Postsurgical changes and maternal spinal dysraphism. Impressions 09/28/2013 2:06 PM [facility]AT[facility] 1. Extra-axial T2 hyperintense structure adjacent to the posterior left lateral ventricle along the parietal and occipital lobes. The primary diagnostic considerations would be an arachnoid cyst, porencephalic cyst, or schizencephaly. An MRI of the brain without contrast is recommended for further evaluation once the child is born. 2. 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 The third and fourth ventricles are nondilated and the posterior fossa appears normal in configuration. No open neural tube defect is identified. I discussed the above findings with Dr. Juarez at 2 PM on 28 September 2013. An addendum to this report will be issued by the pediatric radiology service discussing the body findings and maternal findings. Narrative 09/28/2013 2:06 PM [facility] EXAMINATION: Magnetic resonance imaging (MRI) of the pelvis without contrast HISTORY: ventriculomegaly, 33 weeks gestational age TECHNIQUE: MRI of the pelvis consisting of multiplanar single shot fast spin echo, spoiled gradient echo, and fast imaging employing steady state acquisition were performed without contrast as part of a MRI. FINDINGS: Correlation is made with a sonogram report from 19 September 2013. neurologic axis: Hemispheric cleavage is present. The sulcation is expected for the gestational age. There is an extra-axial T2 hyperintense structure which appears to be from the left lateral ventricle measuring approximately 14 mm TV by 18 mm AP by 23 mm CC. The structure exerting minimal mass effect for size. No definite communication with the right lateral ventricle is identified. There is dilatation of the lateral ventricles bilaterally with the left measuring approximately 16 mm in diameter and the right measuring 10 mm. The ventricles are parallel in appearance and slightly dysmorphic and the corpus callosum is not clearly visible on the sagittal images suggesting at least partial agenesis. The configuration of the posterior fossa and fourth ventricle appears normal without evidence of Chiari or Dandy-Walker malformation. The globes appear symmetric. The spine is curved, but the detail on MRI is insufficient to detect spinal segmentation anomalies. No open neural tube defect is identified. Procedure Note Maribel Amos MD / Adela Flores MD - 09/28/2013 EXAMINATION: Magnetic resonance imaging (MRI) of the pelvis without contrast HISTORY: ventriculomegaly, 33 weeks gestational age TECHNIQUE: MRI of the pelvis consisting of multiplanar single shot fast spin echo, spoiled gradient echo, and fast imaging employing steady state acquisition were performed without contrast as part of a MRI. FINDINGS: Correlation is made with a sonogram report from 19 September 2013. neurologic axis: Hemispheric cleavage is present. The sulcation is expected for the gestational age. There is an extra-axial T2 hyperintense structure which appears to be from the left lateral ventricle measuring approximately 14 mm TV by 18 mm AP by 23 mm CC. The structure exerting minimal mass effect for size. No definite communication with the right lateral ventricle is identified. There is dilatation of the lateral ventricles bilaterally with the left measuring approximately 16 mm in diameter and the right measuring 10 mm. The ventricles are parallel in appearance and slightly dysmorphic and the corpus callosum is not clearly visible on the sagittal images suggesting at least partial agenesis. The configuration of the posterior fossa and fourth ventricle appears normal without evidence of Chiari or Dandy-Walker malformation. The globes appear symmetric. The spine is curved, but the detail on MRI is insufficient to detect spinal segmentation anomalies. No open neural tube defect is identified. IMPRESSION 1. Extra-axial T2 hyperintense structure adjacent to the posterior left lateral ventricle along the parietal and occipital lobes. The primary diagnostic considerations would be an arachnoid cyst, porencephalic cyst, or schizencephaly. An MRI of the brain without contrast is recommended for further evaluation once the child is born. 2. 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 The third and fourth ventricles are nondilated and the posterior fossa appears normal in configuration. No open neural tube defect is identified. I discussed the above findings with Dr. Juarez at 2 PM on 28 September 2013. An addendum to this report will be issued by the pediatric radiology service discussing the body findings and maternal findings. Jame Coe MD MR ORDERABLES
--- OUTSIDE RECORDS SUMMARY | 2024-12-15 13:54 | XMS_ITS | Clinical Summary ---
Author Organization [facility] Address [address] [place] [address] Care Team Providers Care Milking Machine Mechanic Name Role Phone Unavailable Primary Care Provider Unavailabl e Source Comments [facility],non-owned Affiliates and Associated Physician Practices is amultiple site organization consisting of ambulatory clinics and hospital sitesin [place], [place], [place] and [place]. This disclosure is being madepursuant to the Care Everywhere program and may not contain all information available regarding this patient. Last updated 18.[facility] Allergies Active Allergy Reactions Criticality Noted Date [...] from the original note were not included. SKILLED NURSING PATIENT--PLEASE CALL [phone] IF TRIAGED OR ADMITTED THIS CARE PLAN IS BASED ON EVALUATION, SUBJECT TO CHANGE BASED ON ASSESSMENT. 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 Planned surveillance: Repeat ultrasound on 10.27.13 @ [facility] Planned delivery location: [facility] Planned GA at delivery: Term Planned mode of delivery: TBD- Hx of x2 Care Provider: Dr. Adeline Giraldo [place] [facility] [place] consultants involved: [facility]- Larry; Neurology- Niall; Neurosurgery- Yves; Neonatology- Dontrell; Genetics- Lorene; Communication Lecturer- Elbert care needed at : evaluation Planned [...] studies by calling Dr. Myles Briceño at [phone]. Social Service Note: There are no social service concerns identified at this time Label Designer: Dr. Macy Cuevas ([place], [place]) *For further coordination, please refer to [...] Comments Blood Pressure 135/83 09/28/2013 10:35 AM ICU RN Pulse 96 09/28/2013 10:35 AM ICU RN Temperature 36.1 C (96.9 F) 06/11/2020 10:07 AM CDT Respiratory Rate - - Oxygen Saturation - - Inhaled Oxygen Concentration - - Weight 87.5 kg (193 lb) 09/28/2013 10:35 AM ICU RN Height - - Body Mass Index - - Plan of Treatment Health Maintenance Due Date Last Done Comments LIPID TESTING 1980 MAMMOGRAM 1980 HIV SCREENING 1995 HEPATITIS C SCREENING 07/16/1998 DTAP/TDAP/TD VACCINES (1 - Tdap) 1999 HEPATITIS B VACCINE (1 of 3 - 19+ 3-dose series) 1999 COVID-19 VACCINE ( - 2023-2 5 season) 2024 INFLUENZA VACCINE (#1) 2024 DEPRESSION SCREENING 10/11/2024 ZOSTER VACCINE (1 of 2) 2030 HIB VACCINE Aged Out No longer eligi ble based on patient's age to complete this topic HPV VACCINE Aged Out No longer eligi ble based on patient's age to complete this topic MENINGOCOCCAL (Group B) VACCINE Aged Out No longer eligible based on patient's age to complete this topic MENINGOCOCCAL VACCINE Aged Out No dena kathryn eligible based on patient's age to complete this topic PNEUMOCOCCAL VACCINE Aged Out No long er eligible based on patient's age to complete this topic
[2024-12-15 14:25] LABS: EDUAAPPEAR Cloudy; EDUABILI Negative (Negative); EDUABLOOD Negative (Negative); EDUACOLOR1 Yellow; EDUAGLUCOSE Negative (Negative); EDUAKETONE Negative (Negative); EDUALEUKO 2+ (Negative); EDUANITRATE Negative (Negative); EDUAPH 5.5; EDUAPROTEIN Negative (Negative); EDUAUROBILI 0.2
== END 2024-12-15 14:40 | disposition home or self-care (01) ==
PROVIDERS: Emergency Provider Nurse Practitioner Family; PCP Registered Nurse
DX: N30.00 Acute cystitis without hematuria (principal)
CPT/HCPCS: 81003; 87086; 87181; 99213; G0463

== ENCOUNTER 2025-04-28 11:07 | Emergency (ER) | payer BC, MEDICAID, SELFPAY ==
--- NOTE | ~2025-04-28 | XR_ITS ---
XR wrist LT min 3V 04/28/2025 11:56 INDICATION: Left wrist pain after fall PROCEDURE: 4 views left wrist COMPARISON: No prior studies for comparison. FINDINGS: Fracture, dislocation or subluxation is not identified. The soft tissues appear within norm al limits. No foreign bodies are identified. IMPRESSION: 1: NO ACUTE BONE OR JOINT ABNORMALITY IDENTIFIED. Reviewed, dictated and finalized at location A.
--- NOTE | ~2025-04-28 | XR_ITS ---
XR wrist RT min 3V 04/28/2025 11:56 INDICATION: Right wrist pain after fall PROCEDURE: 4 views right wrist COMPARISON: No prior studies for comparison. FINDINGS: Fracture, dislocation or subluxation is not identified. The soft tissues appear within norm al limits. No foreign bodies are identified. IMPRESSION: 1: NO ACUTE BONE OR JOINT ABNORMALITY IDENTIFIED. Reviewed, dictated and finalized at location A.
--- OUTSIDE RECORDS SUMMARY | 2025-04-28 11:09 | XMS_ITS | Encounter Summary ---
Author Organization [facility] Address [address] [place] [address] Care Team Providers Care Hydro Mechanic Name Role Phone Nadja Rodriguez [facility] Primary Care Provider [phone] Encounter Details Date Type Department Care Team (Late st Contact Info) Description 08/16/2024 MyChart Message Enc [address] [place] [id number] Nadja Rodriguez, [address] [place], [place] [id number] Mix w water Social History Tobacco Use [...] Sex Assigned at Female 12/13/2023 10:05 AM SENIOR DATA QUALITY ANALYST Legal Sex Female 12:24 AM CDT Gender Identity Female 12/13/2023 10:05 AM SENIOR DATA QUALITY ANALYST Sexual Orientation Not on file documented as of this encounter Plan of Treatment Upcoming Encounters Date Type Department Care Team (Late st Contact Info) Description 05/11/2025 10:00 AM CDT Office Visit [facility] [address] [place] [address] Nadja Rodriguez FNP [address] [place], [place] [phone] 05/29/2025 1:00 PM CDT Office Visit [facility] Multispecialty Care - [address], [address] [place] [address] Nadja Rodriguez FNP [address] [place] [address] Morris Foreman MD [address] [place] [address] documented as of this encounter Visit Diagnoses Not on filedocumented in this encounter Care Teams Hydro Mechanic Relationship Specialty Start Date End Date Nadja Rodriguez FNP [address] [place] [address] Dr [place], [place] [phone] PCP - General Nurse Practitioner Family 11/12/20 documented as of this encounter
--- OUTSIDE RECORDS SUMMARY | 2025-04-28 11:09 | XMS_ITS | Encounter Summary ---
Author Organization [facility] Address [address] [place] [address] Care Team Providers Care Mushroom Spawn Maker Name Role Phone Nadja Rodriguez [facility] Primary Care Provider [phone] Encounter Details Date Type Department Care Team (Late st Contact Info) Description 06/08/2024 Win Win Slotst Message Enc [facility] [address] [place] [address] Nadja Rodriguez, [facility] [address] [place] [address] Med Social History Tobacco Use Types [...] Sex Assigned at Female 12/13/2023 10:05 AM VITICULTURE TEACHER Legal Sex Female 12:24 AM CDT Gender Identity Female 12/13/2023 10:05 AM VITICULTURE TEACHER Sexual Orientation Not on file documented as of this encounter Progress Notes * Arabella Light MA - 06/08/2024 4:17 PM CDT Plz advise documented in this encounter Plan of Treatment Upcoming Encounters Date Type Department Care Team (Late st Contact Info) Description 05/11/2025 10:00 AM CDT Office Visit [facility] [place] [address] [place] [address] Nadja Rodriguez FNP [facility] [place] [address] 05/29/2025 1:00 PM CDT Office Visit [facility] Multispecialty Care - [facility] [address], [address] [place] [phone] Nadja Rodriguez FNP [address] [place] [address] Morris Foreman MD [address] [place] [address] documented as of this encounter Visit Diagnoses Not on filedocumented in this encounter Care Teams Mushroom Spawn Maker Relationship Specialty Start Date End Date Nadja Rodriguez FNP [address] [place] [address] Dr [place], [place] [phone] PCP - General Nurse Practitioner Family 11/12/20 documented as of this encounter
--- OUTSIDE RECORDS SUMMARY | 2025-04-28 11:09 | XMS_ITS | Encounter Summary ---
Author Organization [facility] Address [address] [place] [address] Care Team Providers Care Planning Consultant Name Role Phone Nadja Rodriguez [facility] Primary Care Provider [phone] Encounter Details Date Type Department Care Team (Late st Contact Info) Description 06/01/2024 MyChart Message Enc [address] [place] [address] Nadja Rodriguez, [place] [address] [place] [phone] Anxiety Social History Tobacco Use Types Packs/Day [...] Sex Assigned at Female 12/13/2023 10:05 AM CREDIT UNION FIELD EXAMINER Legal Sex Female 12:24 AM CDT Gender Identity Female 12/13/2023 10:05 AM CREDIT UNION FIELD EXAMINER Sexual Orientation Not on file documented as of this encounter Plan of Treatment Upcoming Encounters Date Type Department Care Team (Late st Contact Info) Description 05/11/2025 10:00 AM CDT Office Visit [facility] [address] [place] [address] Nadja Rodriguez FNP [address] [place], [place] [phone] 05/29/2025 1:00 PM CDT [facility] Mult[facility] Care - [address], [address] [place] [address] Nadja Rodriguez FNP [address] [place] [address] Morris Foreman MD [address] [place] [address] documented as of this encounter Visit Diagnoses Not on filedocumented in this encounter Care Teams Planning Consultant Relationship Specialty Start Date End Date Nadja Rodriguez FNP [address] [place] [address] [place], [place] [phone] PCP - General Nurse Practitioner Family 11/12/20 documented as of this encounter
--- OUTSIDE RECORDS SUMMARY | 2025-04-28 11:10 | XMS_ITS | Encounter Summary ---
Author Organization [facility] Address [address] [place] [address] Care Team Providers Care Strip Machine Tender Name Role Phone Nadja Rodriguez [facility] Primary Care Provider [phone] [phone] Encounter Details Date Type Department Care Team (Late st Contact Info) Description 05/19/2024 MyChart Message Enc [facility] [address] [place] [phone] Nadja Rodriguez, [place] [address] [place] [phone] Fever Social History Tobacco Use Types Packs/Day [...] Sex Assigned at Female 12/13/2023 10:05 AM TICKET DISPATCHER Legal Sex Female 12:24 AM CDT Gender Identity Female 12/13/2023 10:05 AM TICKET DISPATCHER Sexual Orientation Not on file documented as of this encounter Plan of Treatment Upcoming Encounters Date Type Department Care Team (Late st Contact Info) Description 05/11/2025 10:00 AM CDT Office Visit [facility] [address] [place] [address] Nadja Rodriguez FNP [address] [place], [place] [phone] 05/29/2025 1:00 PM CDT Office Visit [facility] Multispecialty Care - [address], [address] [place] [address] Nadja Rodriguez FNP [address] [facility] [place] [address] Morris Foreman MD [address] [place] [address] documented as of this encounter Visit Diagnoses Not on filedocumented in this encounter Care Teams Strip Machine Tender Relationship Specialty Start Date End Date Nadja Rodriguez FNP [address] [place] [address] [place], [place] [phone] PCP - General Nurse Practitioner Family 11/12/20 documented as of this encounter
--- OUTSIDE RECORDS SUMMARY | 2025-04-28 11:10 | XMS_ITS | Clinical Summary ---
Author Organization [facility] Address [address] [place] [address] Care Team Providers Care Hr Shared Services Consultant Name Role Phone NattymaxNadja [facility] Primary Care Provider [phone] [phone] Allergies Active Allergy Reactions Criticality Noted Date Comments Latex Rash Low 09/22/2013 Penicillins Hives 01/18/2015 Sulfa Antibiotics Itching 01/18/2015 Medications valACYclovir (VALTREX) 1 g tablet Take 1 tablet (1,000 mg total) by mouth daily. 2 Active cyclobenzaprine (FLEXERIL) 10 MG tabletIndication s:Acute cystitis without hematuria,Low back pain, unspecified back pain laterality, unspecified chronicity, unspecified whether sciatica present 1/2-1 tablet po at bedtime as needed for back pain 20 tablet 4 Active levothyroxine (SYNTHROID) 75 MCG tabletIndication s:Hypothyroidism , unspecified type Take 1 tablet (75 mcg total) by mouth every morning. 90 tablet 3 5 Active olmesartan (BENICAR) 5 MG tabletIndication s:Primary hypertension Take 1 tablet (5 mg total) by mouth daily. 90 tablet 1 5 Active nitrofurantoin, macrocrystal-mon ohydrate, (MACROBID) 100 MG capsule Take 1 capsule (100 mg total) by mouth 2 (two) times daily for 10 days. 20 capsule 5 05/04/20 25 Active Phentermine HCl 30 MG CapIndications:C lass 2 obesity due to excess calories without serious comorbidity with body mass index (BMI) of 35.0 to 35.9 in adult Take 1 capsule by mouth daily. 30 capsule 5 Active Phentermine HCl 30 MG CapIndications:C lass 2 obesity due to excess calories without serious comorbidity with body mass index (BMI) of 35.0 to 35.9 in adult TAKE 1 CAPSULE BY MOUTH DAILY 30 capsule 5 04/26/20 25 Discontinue d(Reorder) levoFLOXacin (LEVAQUIN) 250 MG tablet Take 1 tablet (250 mg total) by mouth daily for 3 days. 3 tablet 5 04/01/20 25 phenazopyridine (PYRIDIUM) 200 MG tablet Take 1 tablet (200 mg total) by mouth 3 (three) times daily as needed for Pain. 9 tablet 5 04/27/20 25 Active Problems Problem Noted Date Diagnosed Date [...] Encounters Date Type Department Care Team Description 04/25/[address] [place] [address] Nadja Foss FNP Refill Request 04/25/[address] [place] [phone] Nadja Foss FNP Medication; Question 04/25/2025 MyChart Message Enc [address] [place] [phone] Nadja Foss FNP Renew or is it ok to take 04/24/2025 2:58 PM CDT - 04/24/2025 4:01 PM CDT Emergency [facility] Emergency Room [address] [place] [address] Zulma Judge MD Burning With Urination Discharge Disposition: Home or Self Care (Routine Discharge) 04/24/2025 Travel 03/28/2025 12:48 AM CDT - 03/28/2025 1:50 AM CDT Emergency [facility] Emergency Room [address] [place] [address] Isaac Lopez MD Urinary Symptoms Discharge Disposition: Home or Self Care (Routine Discharge) 03/28/2025 Travel 02/16/[address] [place] [address] Nadja Foss FNP Medication 02/09/[address] [place] [address] Nadja Foss FNP Referral (Need new Neurology referral.) 02/07/2025 10:40 AM CDT Office Visit [address] [place] [address] Nadja Foss FNP Follow Up (Pt here for follow up and also wants to discuss right hand tingling and right foot pain and get a referral, ); Medication Management 02/07/2025 Travel 02/05/2025 MyChart Message Enc [address] [place] [address] Nadja Foss FNP The test from Last 3 Months Immunizations Immunization Administration Dates Next Due Dtp 06/05/1985,01/21/1982,01/14/1981 ,1980,1980 [...] Sex Assigned at Female 12/13/2023 10:05 AM SUCTION DRUM DRIER OPERATOR Legal Sex Female 12:24 AM CDT Gender Identity Female 12/13/2023 10:05 AM SUCTION DRUM DRIER OPERATOR Sexual Orientation Not on file Last Filed Vital Signs Vital Sign Reading Time Taken Comments Blood Pressure 116/66 04/24/2025 4:01 PM CDT Pulse 94 04/24/2025 3:03 PM CDT Temperature 36.7 C (98 F) 04/24/2025 4:01 PM CDT Respiratory Rate 16 04/24/2025 4:01 PM CDT Oxygen Saturation 97% 04/24/2025 3:03 PM CDT Inhaled Oxygen Concentration - - Weight 81.6 kg (180 lb) 04/24/2025 3:03 PM CDT Height 152.4 cm (5') 04/24/2025 3:03 PM CDT Body Mass Index 35.15 04/24/2025 3:03 PM CDT Plan of Treatment Upcoming Encounters Date Type Department Care Team (Late st Contact Info) Description 05/11/2025 10:00 AM CDT Office Visit [facility] [address] [place] [address] Nadja Foss FNP [address] [place] [phone] 05/29/2025 1:00 PM CDT Office Visit [facility] Multispecialty Care - [facility] [address] [facility], [address] [place] [id number] Nadja Foss, [address] [place], [place] [phone] Morris Foreman MD 3 [place] [address] Health Maintenance Due Date Last Done Comments ASCVD Statin 1980 Hepatitis B Vaccines (1 of 3 - 19+ 3-dose series) 1999 ASCVD LDL 03/04/2024 03/04/2023, 04/16/2022 COVID-19 Vaccine ( season) 2024 Cervical Cancer Screening Pap Smear (Age [...] 10/21/2026 Hepatitis C Completed 01/31/2021 PHQ-2 (Physician Shiloh) Completed 11/23/2024 HPV Vaccines Aged Out No longer eligi ble based on patient's age to complete this topic Meningococcal B Vaccine Aged Out No l onger eligible based on patient's age to complete this topic Meningococcal Vaccine Aged Out No dena kathryn eligible based on patient's age to complete this topic Pneumococcal Vaccine: Pediatrics (0 to 5 Years) and At-Risk Patients (6 to 49 Years) Aged Out No longer eligible based on patient's age to complete this topic RSV Immunizations Under 20 Months Aged Out No longer eligible based on patient's age to complete this topic Procedures Procedure Name Priority Date/Time Associated Diagnosis Comments URINALYSIS, AUTO, COMPLETE STAT 04/24/2025 3:01 PM CDT URINE BACTERIA CULTURE STAT 03/28/2025 12:49 AM CDT URINALYSIS, AUTO, COMPLETE STAT 03/28/2025 12:49 AM CDT MG SCREENING W EZEQUIEL NATY DIGI Routine [...] Recently Relevant to Health Maintenance Results * (ABNORMAL) Urinalysis, Auto, Complete (04/24/2025 3:01 PM CDT) Only the most recent of2 resultswithin the time period is included. COLOR (U) YELLOW 04/24/2025 3:35 PM CDT [facility] TRANSPARENCY CLOUDY 04/24/2025 3:35 PM CDT [facility] SPECIFIC GRAVITY (U) <1.005 1.000 - 1.030 04/24/2025 3:35 PM CDT [facility] U PH 6.0 5.0 - 9.0 04/24/2025 3:35 PM CDT [facility] LEUKOCYTES (U) 2+(A) NEGATIVE 04/24/2025 3:35 PM CDT [facility] NITRITES NEGATIVE NEGATIVE 04/24/2025 3:35 PM CDT [facility] PROTEIN RANDOM (U) NEGATIVE NEGATIVE 04/24/2025 3:35 PM CDT [facility] GLUCOSE (U) NEGATIVE NEGATIVE 04/24/2025 3:35 PM CDT [facility] KETONES MG/DL (U) NEGATIVE NEGATIVE 04/24/2025 3:35 PM CDT [facility] BILIRUBIN (U) NEGATIVE NEGATIVE 04/24/2025 3:35 PM CDT [facility] BLOOD (U) TRACE(A) NEGATIVE 04/24/2025 3:35 PM CDT [facility] WBC/HPF 50-100 0 - 5 /HPF 04/24/2025 3:35 PM CDT [facility] RBC/HPF 0-5 0 - 5 /HPF 04/24/2025 3:35 PM CDT [facility] EPI/HPF FEW /HPF 04/24/2025 3:35 PM CDT [facility] URINE SPECIMEN OBTAINED BY CLEAN CATCH PROCEDURE / Unknown 04/24/2025 3:01 PM CDT us Zulma Judge MD URINE ORDERABLES Final Result [facility] [address] [place] [address], [place] [phone] * (ABNORMAL) URINE BACTERIA CULTURE (03/28/2025 12:49 AM CDT) SPEC DESCRIPTION URINE CLEAN CATCH 03/28/2025 12:49 AM CDT [facility] SPECIAL REQUESTS NO SPECIAL REQUEST 03/28/2025 12:49 AM CDT [facility] CULTURE RESULT >100,000 COL/ML STAPH. SPECIES NOT STAPH. AUREUS (A) 03/30/2025 8:09 AM CDT [facility] URINE SPECIMEN OBTAINED BY CLEAN CATCH PROCEDURE / Unknown 03/28/2025 12:49 AM CDT 03/28/2025 1:05 AM CDT Narrative Organism Antibiotic Method Susceptibility Staph. species not staph. aureus NITROFURANTOIN SHAUNA (V ITEK) <=16: Sensitive Staph. species not staph. aureus LEVOFLOXACIN SHAUNA (VIT EK) 0.25: Sensitive Staph. species not staph. aureus OXACILLIN SHAUNA (VIT EK) >=4: Resistant Staph. species not staph. aureus TRIMETH-SULFAMETH. DE C (VITEK) <=10: Sensitive Staph. species not staph. aureus TETRACYCLINE SHAUNA (VIT EK) <=1: Sensitive Staph. species not staph. aureus VANCOMYCIN SHAUNA (VIT EK) <=0.5: Sensitive Isaac Lopez MD MICROBIOLOGY - GENERAL ORDERABLE S Final Result Performing Organization Address City/State/[facility] Co de Phone Number [facility] [address] [place] [address], [place] [phone] [facility] [address] [place] [address], [place] [phone] * MG SCREENING W EZEQUIEL NATY DIGI (05/04/2024 9:09 AM CDT) Anatomical Region Laterality Modality Breast Bilateral Mammography 05/04/2024 10:1 8 AM CDT Impressions 05/04/2024 10:21 AM CDT =====IMPRESSION:===== No mammographic findings suggestive of malignancy ASSESSMENT: ACR BI-RADS 2 - BENIGN FINDING(S) Recommendation: 1: Routine Screening Bilateral COMMENTS: Ordered By: NADJA FOSS Interpreted By: Ezio Chin MD, 05/04/2024 [...] No significant change from the prior exam. Nadja Foss OUTSIDE MACHINIST SUPERVISOR MAMMO Final Res ult * (ABNORMAL) LIPID PANEL (03/04/2023 11:03 AM CDT) CHOLESTEROL 175 <200.0 MG/DL 03/04/2023 11:52 AM CDT [facility] TRIGLYCERIDES 157(H) <150 MG/DL 03/04/2023 11:52 AM CDT [facility] HDL 43 >40.0 MG/DL 03/04/2023 11:52 AM CDT [facility] LDL (CALCULATED) 101(H) <100 MG/DL 03/04/2023 11:52 AM CDT [facility] NON HDL CHOLESTEROL 132(H) <130 MG/DL 03/04/2023 11:52 AM CDT [facility] CHOL/HDL RATIO 4.1 0.0 - 4.5 03/04/2023 11:52 AM CDT [facility] VLDL CALCULATION 31 5 - 55 MG/DL 03/04/2023 11:52 AM CDT [facility] LIPID INTERPRETATION 03/04/2023 11:52 AM CDT [facility] Comment: NIH CONCENSUS REPORT RECOMMENDATIONS: ADULT CHILD LOW RISK: CHOLESTEROL <200 <170 TRIGLYCERIDE <150 --- HDL >=60 --- LDL <100 <110 BORDERLINE: CHOLESTEROL 200-239 170-199 TRIGLYCERIDE 150-199 --- HDL 40-59 --- LDL 100-159 110-129 HIGH RISK: CHOLESTEROL >=240 >=200 TRIGLYCERIDE >=200 --- HDL <40 --- LDL >=160 >=130 03/04/2023 11:0 3 AM CDT Nadja Foss [facility] Final Res ult Performing Organization Address City/[facility]/ZIP Co de Phone Number [facility] [address] [place] [address], [place] [phone] * PAP SMEAR WITH HPV (10/21/2021) 10/21/2021 [facility] Scanned SCANNING Final Resu lt * HEPATITIS C ANTIBODY (01/31/2021 10:24 AM CDT) HEPATITIS C AB NON-REACTI VE NON-REACTI VE 01/31/2021 2:52 PM CDT [facility] 01/31/2021 10:2 4 AM CDT Nadja Foss [facility] Final Res ult [facility] [address] [place] [address], [place] [phone] * PAP SMEAR (SCAN ORDER) (02/23/2020) 02/23/2020 us [facility] Scanned SCANNING Final Resu lt from Last 3 Months or Most Recently Relevant to Health Maintenance Insurance MEDICAID [facility] Care Teams Hr Shared Services Consultant Relationship Specialty Start Date End Date Nadja Foss FNP [address] [place] [address] [place] [address] PCP - General Nurse Practitioner Family 11/12/20
--- OUTSIDE RECORDS SUMMARY | 2025-04-28 11:10 | XMS_ITS | Encounter Summary ---
Author Organization [facility] Address [address] [place] [address] Care Team Providers Care Electronic Imaging System Operator Name Role Phone Nadja Rodriguez [facility] Primary Care Provider [phone] [phone] Encounter Details Date Type Department Care Team (Late st Contact Info) Description 07/27/2023 The Filterhart Message Enc [address] [place] [address] Nadja Rodriguez, [place] [address] [place] [phone] Question Social History Tobacco Use Types Packs/Day [...] Sex Assigned at Female 12/13/2023 10:05 AM RECORDS MANAGER Legal Sex Female 12:24 AM CDT Gender Identity Female 12/13/2023 10:05 AM RECORDS MANAGER Sexual Orientation Not on file documented as of this encounter Plan of Treatment Upcoming Encounters Date Type Department Care Team (Late st Contact Info) Description 05/11/2025 10:00 AM CDT Office Visit [facility] [address] [place] [address] Nadja Rodriguez FNP [address] [place], [place] [phone] 05/29/2025 1:00 PM CDT Office Visit [facility] Multispecialty Care - [address], [address] [place] [address] Nadja Rodriguez FNP [address] [facility] [place] [address] Morris Foreman MD [address] [place] [address] documented as of this encounter Visit Diagnoses Not on filedocumented in this encounter Care Teams Electronic Imaging System Operator Relationship Specialty Start Date End Date Nadja Rodriguez FNP [address] [place] [address] [place], [place] [phone] PCP - General Nurse Practitioner Family 11/12/20 documented as of this encounter
--- OUTSIDE RECORDS SUMMARY | 2025-04-28 11:10 | XMS_ITS | Encounter Summary ---
Author Organization [facility] Address [address] [place] [address] Care Team Providers Care Concrete Mixer Loader Truck Mounted Name Role Phone Nadja Rodriguez [facility] Primary Care Provider [phone] [phone] Encounter Details Date Type Department Care Team (Late st Contact Info) Description 09/22/2023 MyChart Message Enc [facility] [address] [place], [place] [phone] Nadja Rodriguez, [facility] [address] [place] [phone] Stinky urin smell Social History Tobacco Use [...] Sex Assigned at Female 12/13/2023 10:05 AM SYSTEMS MANAGER Legal Sex Female 12:24 AM CDT Gender Identity Female 12/13/2023 10:05 AM SYSTEMS MANAGER Sexual Orientation Not on file documented as of this encounter Plan of Treatment Upcoming Encounters Date Type Department Care Team (Late Contact Info) Description 05/11/2025 10:00 AM CDT Office Visit [facility] [address] [place] [address] Nadja Rodriguez FNP [address] [place], [place] [phone] 05/29/2025 1:00 PM CDT Office Visit [facility] Medical Group Multispecialty Care - [address], [address] [place] [address] Nadja Rodriguez FNP [address] [place] [address] Morris Foreman MD [address] [place] [address] documented as of this encounter Visit Diagnoses Not on filedocumented in this encounter Care Teams Concrete Mixer Loader Truck Mounted Relationship Specialty Start Date End Date Nadja Rodriguez FNP [address] [place] [address] [place] [address] PCP - General Nurse Practitioner Family 11/12/20 documented as of this encounter
--- OUTSIDE RECORDS SUMMARY | 2025-04-28 11:10 | XMS_ITS | Encounter Summary ---
Author Organization [facility] Address [address] [place] [address] Care Team Providers Care Comic Book Artist Name Role Phone Nadja Rodriguez [facility] Primary Care Provider [phone] [phone] Encounter Details Date Type Department Care Team (Late st Contact Info) Description 05/31/2023 MyChart Message Enc [address] [place] [address] Nadja Rodriguez, [place] [address] [place] [phone] Exercise Social History Tobacco Use Types Packs/Day [...] Sex Assigned at Female 12/13/2023 10:05 AM ORTHODONTIC LABORATORY TECHNICIAN Legal Sex Female 12:24 AM CDT Gender Identity Female 12/13/2023 10:05 AM ORTHODONTIC LABORATORY TECHNICIAN Sexual Orientation Not on file documented as of this encounter Plan of Treatment Upcoming Encounters Date Type Department Care Team (Late st Contact Info) Description 05/11/2025 10:00 AM CDT Office Visit [facility] [address] [place] [address] Nadja Rodriguez FNP [address] [place], [place] [phone] 05/29/2025 1:00 PM CDT Office Visit [facility] Medical [facility] Multispecialty Care - [address], [address] [place] [address] Nadja Rodriguez FNP [address] [facility] [place] [address] Morris Foreman MD 3 [place] [address] documented as of this encounter Visit Diagnoses Not on filedocumented in this encounter Care Teams Comic Book Artist Relationship Specialty Start Date End Date Nadja Rodriguez FNP [address] [place] [address] [place], [place] [phone] PCP - General Nurse Practitioner Family 11/12/20 documented as of this encounter
--- OUTSIDE RECORDS SUMMARY | 2025-04-28 11:10 | XMS_ITS | Encounter Summary ---
Author Organization [facility] Address [address] [place] [address] Care Team Providers Care Paragliding Instructor Name Role Phone Nadja Rodriguez [facility] Primary Care Provider [phone] Encounter Details Date Type Department Care Team (Late st Contact Info) Description 05/19/2023 Productivt Message Enc [facility] [address] [place] [address] Nadja Rodriguez, [facility] [address] [place] [address] My results Social History Tobacco Use [...] Sex Assigned at Female 12/13/2023 10:05 AM EARLY LEARNING TEACHER Legal Sex Female 12:24 AM CDT Gender Identity Female 12/13/2023 10:05 AM EARLY LEARNING TEACHER Sexual Orientation Not on file documented as of this encounter Progress Notes * Dinorah Adame LPN - 05/19/2023 2:26 PM CDT Please review/advise. Pt. Has appt. Sched. 06/24/2023 with Cyrus Rodriguez. documented in this encounter Plan of Treatment Upcoming Encounters Date Type Department Care Team (Late st Contact Info) Description 05/11/2025 10:00 AM CDT Office Visit [facility] [address] [place] [address] Nadja Rodriguez FNP [address] [place] [address] [place] [address] 05/29/2025 1:00 PM CDT Office Visit [facility] Medical Group Multispecialty Care - [address], [address] [place] [phone] Nadja Rodriguez FNP [address] [place] [address] [place] [address] Morris Foreman MD [address] [place] [address] documented as of this encounter Visit Diagnoses Not on filedocumented in this encounter Care Teams Paragliding Instructor Relationship Specialty Start Date End Date Nadja Rodriguez FNP [address] [place] [address] [place] [address] PCP - General Nurse Practitioner Family 11/12/20 documented as of this encounter
--- OUTSIDE RECORDS SUMMARY | 2025-04-28 11:10 | XMS_ITS | Data Portability ---
Author Organization [facility] Address [address] [address] [place] [address] Care Team Providers Care Executive Meeting Manager Name Role Phone [facility] Primary Car e Provider Assessment Encounter Date Assessment Date Assessment LastModified by Organization Details LastModified Time 09/13/2020 09/13/2020 Patient is ___weeks . Discussed plan. [email or web address] Not available 09/13/2020 17:04:48 09/20/2020 09/20/2020 Patient is __39_weeks . Discussed plan. [email or web address] Not available 09/20/2020 11:55:38 10/01/2020 10/01/2020 UA, urine culture Rx: keflex due to 2 allergies and . Precautions given re possible cross allergy with PCN. Will call if culture requires change of antibiotic therapy Call office if symptoms worsen or persist despite treatment Follow up for PP visit as scheduled. [email or web address] Not available 10/01/2020 18:00:30 10/21/2021 10/21/2021 Annual gynecological exam performed. Patient will come back in a year unless there are new symptoms. Not available 10/21/2021 11:56:18 Plan of Treatment Reminders Order Date Submit Date Provider Last Modified By Organization Details Last Modified Time Details Appointments None recorded. Lab urinalysis , dipstick 2019 020 [email or web address] [address], [address], [place], [address], 0 18:11:54 Referral None recorded. Procedures None recorded. Surgeries None recorded. Imaging MAMMO, screening, bilateral 2021 022 oss8 [facility]), [address] [place], [address], 2 16:29:51 Medication Orders Keflex 500 mg capsule 2019 020 oss8 [id number], [address], [place], [id number], 1 09:58:01 Patient TargetsNo targets recorded. Patient Instructions Encounter Date Encounter Id Patient Instructions Last Modified By Organization Details Last Modified Time 11/01/2020 [id number] pp exam f/u wwe, hx lsil, refer to PT for hip pain [email or web address] Not available 11/01/2020 15:32:34 Reason for Referral None Reported. Results Created Date Observation Date Name Description Value Unit Range Abnormal Flag Note LastModifiedBy Organization Detail LastModifiedTime 08/27/2008/29/2020 strep tococ cus group B DNA GB specimen source Vagina l/Rect al Not Available [facility] ([facility]) [address], [place], [address], 08/29/2020 15:19:02 08/27/20 20 08/29/2020 strep tococ cus group B DNA spec type Cultur e Swab Not Available [facility] ([facility]) [address], [place], [address], 08/29/2020 15:19:02 08/27/20 20 08/29/2020 strep tococ [...] rmed by [facility], [facility], d/b/a Braeden jo, [address] [place] [address], [place] [address] , Bolivar Lobo ra, DO, Labor atory Direc tor. Not Available [facility] ([facility]) [address] [place] [address] [address], [place], [address], 08/29/2020 15:19:02 10/01/20 20 10/02/2020 cultu re, urine specimen source Urine - Void Not Available [facility] ([facility]) [address] [place] [address] [address], [place], [address], 10/04/2020 15:12:34 10/01/20 20 10/02/2020 cultu re, urine culture, urine See Below See Micro biolo gy Repor t Not Available [facility] ([facility]) [address] [place] [address] [address], [place], [address], 10/04/2020 15:12:34 10/01/20 20 10/02/2020 cultu re, urine escherichia coli >100,0 00 CFU/ml Escher ichia coli Not Available [facility] ([facility]) [address] [place] [address] [address], [place], [address], 10/04/2020 15:12:34 10/01/20 20 10/02/2020 cultu re, [...] LLC) [address], [place], [address], 10/04/2020 15:12:34 10/01/20 20 10/01/2020 urina lysis , dipst ick Leukocytes trace Not Available [facility] [address], [place], [address], 10/01/2020 17:33:58 10/01/20 20 10/01/2020 urina lysis , dipst ick Nitrite neg Not Available [facility] [address], [place], [address], 10/01/2020 17:33:58 10/01/20 20 10/01/2020 urina lysis , dipst ick Blood ++ Not Available [facility] [address], [place], [address], 10/01/2020 17:33:58 10/01/20 20 10/01/2020 urina lysis , dipst ick Leukocytes trace Not Available [facility] [address], [place], [address], 10/01/2020 17:33:17 10/01/20 20 10/01/2020 urina lysis , dipst ick Nitrite neg Not Available [facility] [address], [place], [address], 10/01/2020 17:33:17 10/01/20 20 10/01/2020 urina lysis , dipst ick Blood ++ Not Available [facility] [address], [place], [address], 10/01/2020 17:33:17 11/29/19 21 11/29/2020 US, lamin granda md interpretati on Not Available [facility] [address], [place], [address], 05/14/2020 11:51:39 11/29/19 21 11/29/2020 US, summer jackson, 2nd or 3rd vishal griggs md interpretati on Not Available [address], [place], [address], 05/14/2020 11:51:25 12/11/19 21 12/10/2020 US, anna granda md interpretati on Not Available [address], [place], [address], 08/02/2020 12:20:56 10/21/19 22 10/21/2021 IMAGE GUIDE D PAP AND HPV REGAR DLESS image guided Pap, HPV regardless of Pap result SEE RESULT S BELOW CASE REPOR T: Cytol ogy Gynec ologi gonzález Repor t Case: [id number] Provi cat: Odette madrid , David Olmedo cted: 10/21 1553 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 Not Available [facility] (Lab) [address] , [place], [address], 10/27/2021 16:38:16 10/21/19 22 10/21/2021 CT/GC (JOSE) , THINP REP VIAL chlamydia trachomatis, PCR Negati ve negati ve Not Available [facility] (Lab) [address] , [place], [address], 10/27/2021 16:38:17 10/21/19 22 10/21/2021 CT/GC (JOSE) , THINP REP VIAL neisseria gonorrhoeae, PCR Negati ve negati ve Not Available [facility] (Lab) [address] , [place], [address], 10/27/2021 16:38:17 10/21/19 22 10/21/2021 TRICH OMONA S VAGIN ANDREIA (RRNA ) trichomonas vaginalis ribosomal RNA (rrna) Negati ve negati ve Not Available [facility] (Lab) [address], [place], [address], 10/27/2021 16:38:17 Result Notes None recorded. Problems Name Problem SNOMED Code Status Onset Date Resolution Date Notes Provider Name and Address Organization Details Recorded Time Lumbar spinal meningoc ashia 223764212 Completed Alma Doran [facility], [facility] 0 13:43:29 Herpes simplex 49967189 Completed hx - SP tx'd 08/27 [facility], [facility] 0 13:43:29 History of thyroid disorder [id number] Completed 07/19 [facility] 0 13:43:29 Reproduc tive care manageme nt Completed 201010/01/2020 Unspecif ied procreat rodrigo manageme nt;Pract ice ID: 0001 Arabella Chery MD [address], [place], [address], [facility] 0 17:42:29 Female infertil ity 1237809 Completed 201210/01/2020 Infertil ity, female, of other specifie d origin;R ecorded Elsewher e: No Locat ion: [facility] S ource: EHR Workforce Planner heidy: N Jennyti ce ID: 0001 Ajith lable Time: 09:30:00 AM Arabella Chery MD [address], [place], [address], [facility] 0 17:41:32 Pregnanc y test positive [id number] Completed 201210/01/2020 Pregnanc y examinat ion or test, positive result;R ecorded Elsewher e: No Locat ion: [facility] S ource: EHR Workforce Planner heidy: N Practi ce ID: 0001 Ajith lable Time: 02:30:00 PM Arabella Chery MD [address], [place], [address], [facility] 0 17:42:26 Female genital organ symptoms [id number] Completed 201210/01/2020 Unspecif ied symptom associat ed with female genital organs;R ecorded Elsewher e: No Locat ion: [facility] S ource: EHR Workforce Planner heidy: N Jennyti ce ID: 0001 Ajith lable Time: 04:00:00 PM Arabella Chery MD [address], [place], [address], [facility] 0 17:41:29 Streptoc occal sore throat 24507891 Completed 201210/01/2020 Streptoc occal sore throat;R ecorded Elsewher e: No Locat ion: [facility] S ource: EHR Workforce Planner heidy: Carmella River ce ID: 0001 Ajith lable Time: 04:00:00 PM Arabella Chery MD [address], [place], [address], [facility] 0 17:42:48 Ultrason ography Completed 201210/01/2020 Antenata l screenin g for malforma tion using ultrason ics;Bernardino rded Elsewher e: No Locat ion: [facility] S ource: EHR Workforce Planner heidy: Carmella River ce ID: 0001 Ajith lable Time: 02:00:00 PM Arabella Chery MD [address], [place], [address], [facility] 0 17:43:01 Antenata l screenin g Completed 201210/01/2020 Antenata l screenin g for malforma tion using ultrason ics;Bernardino rded Elsewher e: No Locat ion: [facility] S ource: EHR Workforce Planner heidy: N Jennyti ce ID: 0001 Ajith lable Time: 02:00:00 PM Arabella Chery MD [address], [place], [address], [place] [facility] 0 17:41:27 Congenit al malforma tion [id number] Completed 201210/01/2020 Antenata l screenin g for malforma tion using ultrason ics;Bernardino rded Elsewher e: No Locat ion: Noel schulte [facility] S ource: EHR Workforce Planner heidy: N Jennyti ce ID: 0001 Ajith lable Time: 02:00:00 PM Arabella Chery MD [address], [place], [address], [facility] 0 17:41:24 Known OR suspecte d abnormal ity affectin g manageme nt of mother Completed 201210/01/2020 Unspecif ied suspecte d abnormal ity, affectin g manageme nt of mother, unspecif ied as to episode of care;Rec orded Elsewher e: No Locat ion: Noel schulte [facility] S ource: EHR Workforce Planner heidy: N Perico ce ID: 0001 Ajith lable Time: 10:30:00 AM Arabella Chery MD [address], [place], [address], [facility] 0 17:42:07 Labor and delivery complica conrad by heart rate anomaly [id number] Completed 201310/01/2020 ABNORMAL ITY IN HEART RATE OR RHYTHM, ANTEPART UM;Recor ded Elsewher e: No Locat ion: [facility] S ource: EHR Workforce Planner heidy: N Jennyti ce ID: 0001 Ajith lable Time: 09:30:00 AM Arabella Chery MD [address], [place], [address], [facility] 0 17:42:11 Postpart um care Completed 201310/01/2020 Post Followup ;Recorde d Elsewher e: No Locat ion: [facility] S ource: EHR Workforce Planner heidy: N Practi ce ID: 0001 Ajith lable Time: 03:15:00 PM Arabella Chery MD [address], [place], [address], [facility] 0 17:43:06 Routine antenata l care Completed 201410/01/2020 Supervis ion of other normal pregnanc y;Record ed Elsewher e: No Locat ion: [facility] S ource: EHR Workforce Planner heidy: N Practi ce ID: 0001 Ajith lable Time: 09:30:00 AM Arabella Chery MD [address], [place], [address], [facility] 0 17:42:31 Speciali zed medical examinat ion Completed 201410/01/2020 ROUTINE ASSEMBLER PRODUCTION LINE EXAMINAT ION;Bernardino rded Elsewher e: No Locat ion: [facility] S ource: EHR Workforce Planner heidy: N Practi ce ID: 0001 Ajith lable Time: 09:30:00 AM Arabella Chery MD [address], [place], [address], [facility] 0 17:42:43 Morbid obesity 743117339 Completed 201407/28/2021 Obesity, Morbid;R ecorded Elsewher e: No Locat ion: [facility] S ource: EHR Workforce Planner heidy: N Practi ce ID: 0001 Ajith lable Time: 09:30:00 AM Loraine winters, [facility] 1 17:10:25 Amenorrh ea 18238841 Completed 201410/01/2020 Absence of menstrua tion;Rec orded Elsewher e: No Locat ion: [facility] S ource: EHR Workforce Planner heidy: N Practi ce ID: 0001 Ajith lable Time: 09:30:00 AM Arabella Chery MD [address], [place], [address], [facility] 0 17:43:16 Speciali zed medical examinat ion Completed 201410/01/2020 Other specifie d chlamydi al diseases ;Recorde d Elsewher e: No Locat ion: [facility] S ource: EHR Workforce Planner heidy: N Jennyti ce ID: 0001 Ajith lable Time: 09:30:00 AM Arabella Chery MD [address], [place], [address], [facility] 0 17:42:46 Venereal disease screenin g Completed 201410/01/2020 Screenin g examinat ion for venereal disease; Recorded Elsewher e: No Locat ion: [facility] S ource: EHR Workforce Planner heidy: N Jennyti ce ID: 0001 Ajith lable Time: 09:30:00 AM Arabella Chery MD [address], [place], [address], [facility] 0 17:43:11 Screenin g for malignan t neoplasm of cervix Completed 201410/01/2020 Pap Smear;Pr actice ID: 0001 Arabella Chery MD [address], [place], [address], [facility] 0 17:42:34 Uterine size for dates discrepa ncy [id number] Completed 201410/01/2020 Uterine size date discrepa ncy in pregnanc y;Record ed Elsewher e: No Locat ion: [facility] S ource: EHR Workforce Planner heidy: N Jennyti ce ID: 0001 Ajith lable Time: 03:30:00 PM Arabella Chery MD [address], [place], [address], [facility] 0 17:43:03 Incomple te 90274699 Completed 201410/01/2020 Incomple te ;Recorde d Elsewher e: No [facility]at ion[facility] S [facility]: EHR Workforce Planner heidy: N Practi ce ID: 0001 Ajith lable Time: 03:00:00 PM Arabella Chery MD [address], [place], [address], [facility] 0 17:42:00 Missed miscarri age 96146643 Completed 201410/01/2020 Missed ;Recorde d Elsewher e: No Locat ion: [facility] S ource: EHR Workforce Planner heidy: N Practi ce ID: 0001 Ajith lable Time: 04:00:00 PM Arabella Chery MD [address], [place], [address], [facility] 0 17:42:18 Pregnanc y detectio n examinat ion Completed 201410/01/2020 Encounte r for pregnanc y test, result positive ;Recorde d Elsewher e: No Locat ion: [facility] S ource: EHR Workforce Planner heidy: N Practi ce ID: 0001 Ajith lable Time: 01:00:00 PM Arabella Chery MD [address], [place], [address], [facility] 0 17:42:24 Normal pregnanc y in multigra delmis [id number] Completed 201410/01/2020 Encounte r for supervis ion of other normal pregnanc y, 1st trimeste r;Record ed Elsewher e: No Locat ion: [facility] S ource: EHR Workforce Planner heidy: N Practi ce ID: 0001 Ajith lable Time: 01:00:00 PM Arabella Chery MD [address], [place], [address], [facility] 0 17:42:21 Gestatio n less than 9 weeks [id number] Completed 201410/01/2020 Less than 8 weeks gestatio n of pregnanc y;Record ed Elsewher e: No Locat ion: Noel schulte [facility] S ource: EHR Workforce Planner heidy: N Practi ce ID: 0001 Ajith lable Time: 01:00:00 PM Arabella Chery MD [address], [place], [address], [facility] 0 17:43:23 Finding of body mass index 322318718 Completed 201410/01/2020 Body mass index (BMI) 40.0-44. 9, adult;Re corded Elsewher e: No Locat ion: Noel schulte [facility] S ource: EHR Workforce Planner heidy: N Jennyti ce ID: 0001 Ajith lable Time: 01:00:00 PM Arabella Chery MD [address], [place], [address], [facility] 0 17:43:21 Syphilis test finding 800917284 Completed 201410/01/2020 Encntr screen for infectio ns w sexl mode of transmis s;Record ed Elsewher e: No Locat ion: Noel schulte [facility] S ource: EHR Workforce Planner heidy: N Perico ce ID: 0001 Ajith lable Time: 01:00:00 PM Arabella Chery MD [address], [place], [address], [facility] 0 17:42:51 Threaten ed miscarri age 64672142 Completed 201410/01/2020 Threaten ed ;Recorde d Elsewher e: No [facility]: EHR Workforce Planner heidy: N Jennyti ce ID: 0001 Ajith lable Time: 02:00:00 PM Arabella Chery MD [address], [place], [address], [facility] 0 17:42:56 Secondar y amenorrh ea [id number] Completed 201410/01/2020 Secondar y amenorrh ea;Recor ded Elsewher e: No Locat ion: [facility] S ource: EHR Workforce Planner heidy: N Practi ce ID: 0001 Ajith lable Time: 01:00:00 PM Arabella Chery MD [address], [place], [address], [facility] [address] 17:42:[address] Concept Completed 201410/01/2020 Encntr for ob/gyn doctor exam (general ) (routine ) w/o abn findings ;Recorde d Elsewher e: No Locat ion: [facility] S ource: EHR Workforce Planner heidy: N Practi ce ID: 0001 Ajith lable Time: 01:00:00 PM Arabella Chery MD [address], [place], [address], [facility] 0 17:42:41 Infectio n screenin g Completed 201410/01/2020 Encounte r for screenin g for oth infec/pa rastc diseases ;Recorde d Elsewher e: No Locat ion: [facility] S ource: EHR Workforce Planner heidy: N Jennyti ce ID: 0001 Ajith lable Time: 01:00:00 PM Arabella Chery MD [address], [place], [address], [facility] 0 17:42:02 Low grade squamous intraepi thelial lesion on cervical Papanico laou smear [id number] 9105 Completed 201507/28/2021 Low grade intrepit h lesion cyto smr crvx (LGSIL); Recorded Elsewher e: No Locat ion: [facility] S ource: EHR Workforce Planner heidy: N Practi ce ID: 0001 Ajith lable Time: 02:00:00 PM [facility] 1 17:10:24 Gestatio n period, 32 weeks [id number] Completed 201510/01/2020 32 weeks gestatio n of pregnanc y;Record ed Elsewher e: No Locat ion: Noel schulte [facility] S ource: EHR Workforce Planner heidy: N Practi ce ID: 0001 Ajith lable Time: 01:00:00 PM Arabella Chery MD [address], [place], [address], [facility] 0 17:41:43 Gestatio n period, 33 weeks 55156422 Completed 201510/01/2020 33 weeks gestatio n of pregnanc y;Record ed Elsewher e: No Locat ion: Noel schulte [facility] S ource: EHR Workforce Planner heidy: N Practi ce ID: 0001 Ajith lable Time: 01:00:00 PM Arabella Chery MD [address], [place], [address], [facility] 0 17:43:26 Gestatio n period, 34 weeks [id number] Completed 201510/01/2020 34 weeks gestatio n of pregnanc y;Record ed Elsewher e: No Locat ion: Noel schulte [facility] S ource: EHR Workforce Planner heidy: N Practi ce ID: 0001 Ajith lable Time: 10:00:00 AM Arabella Chery MD [address], [place], [address], [facility] 0 17:41:46 Gestatio n period, 35 weeks [id number] Completed 201510/01/2020 35 weeks gestatio n of pregnanc y;Record ed Elsewher e: No Locat ion: Noel schulte [facility] S ource: EHR Workforce Planner heidy: N Practi ce ID: 0001 Ajith lable Time: 01:30:00 PM Arabella Chery MD [address], [place], [address], [facility] 0 17:41:48 Gestatio n period, 36 weeks [id number] Completed 201510/01/2020 36 weeks gestatio n of pregnanc y;Record ed Elsewher e: No Locat ion: [facility] S ource: EHR Workforce Planner heidy: N Practi ce ID: 0001 Ajith lable Time: 10:30:00 AM Arabella Chery MD [address], [place], [address], [facility] 0 17:41:50 Gestatio n period, 37 weeks 83734661 Completed 201510/01/2020 37 weeks gestatio n of pregnanc y;Record ed Elsewher e: No Locat ion: [facility] S ource: EHR Workforce Planner heidy: N Practi ce ID: 0001 Ajith lable Time: 11:00:00 AM Arabella Chery MD [address], [place], [address], [facility] 0 17:43:28 Hypothyr oidism 29803062 Completed 201507/28/2021 Hypothyr oidism, unspecif ied;Bernardino rded Elsewher e: No Locat ion: [facility] S ource: EHR Workforce Planner heidy: N Practi ce ID: 0001 Ajith lable Time: 11:00:00 AM Loraine winters, [facility] 1 17:10:22 Gestatio n period, 38 weeks [id number] Completed 201510/01/2020 38 weeks gestatio n of pregnanc y;Record ed Elsewher e: No Locat ion: [facility] S ource: EHR Workforce Planner heidy: N Practi ce ID: 0001 Ajith lable Time: 11:00:00 AM Arabella Chery MD [address], [place], [address], [facility] 0 17:41:54 Oligohyd ramnios Completed 201510/01/2020 Oligohyd ramnios, third trimeste r, not applicab le or unsp;Rec orded Elsewher e: No Locat ion: Noel schulte [facility] S ource: EHR Workforce Planner heidy: Carmella River ce ID: 0001 Ajith lable Time: 11:00:00 AM Arabella Chery MD [address], [place], [address], [facility] 0 17:41:37 Gestatio n period, 39 weeks [id number] Completed 201510/01/2020 39 weeks gestatio n of pregnanc y;Record ed Elsewher e: No Locat ion: Noel schulte [facility] S ource: EHR Workforce Planner heidy: Carmella River ce ID: 0001 Ajith lable Time: 10:00:00 AM Arabella Chery MD [address], [place], [address], [facility] 0 17:41:57 Term pregnanc y delivere d [id number] Completed 201510/01/2020 Encounte r for full-ter m uncompli cated delivery ;Practic e ID: 0001 Arabella Chery MD [address], [place], [address], [facility] 0 17:42:53 Single live from singleto n pregnanc y [id number] Completed 201510/01/2020 Single live ;Pr actice ID: 0001 Arabella Chery MD [address], [place], [address], [facility] 0 17:42:39 Lochia finding Completed 201510/01/2020 Encounte r for routine postpart um follow-u p;Record ed Elsewher e: No Locat ion: [facility] S ource: EHR Workforce Planner heidy: Carmella River ce ID: 0001 Ajith lable Time: 03:15:00 PM Arabella Chery MD [address], [place], [address], [facility] 0 17:42:13 Pregnanc y [id number] Completed 201909/26/2020 Alma [facility], [facility] 0 13:43:35 Advanced maternal age [id number] Completed 201907/28/2021 Loraine Alvarez [facility], [facility] 1 17:10:21 Thyroid disease monitori ng Completed 201910/01/202002/18 (13w2d) - 2.254 repeat in 3rd trimeste r!!! Arabella Chery MD [address], [place], [address], [facility] 0 17:42:59 Problem Notes None recorded. Procedures Surgical History Date Name Laterality Status Provider Name and Address Organization Details Recorded Time 10/21/19 22 Date of Last Pap Smear completed [facility] 10/21/2021 11:57:48 01/10/20 05 cholecystectomy completed [facility] 07/08/2021 16:07:01 10/11/19 02 cryosurgery completed [facility] 02/22/2020 17:13:35 10/11/18 81 procedure on back completed [facility] 10/21/2021 11:59:31 Imaging Results None recorded. Procedure Notes None recorded. Medical Equipment None Reported. Allergies Allergen ID Allergen Name Allergen Category Reaction Reaction Severity Criticality Documentation Date Start Date Code Code System Note Provider Name and Address Organization Details Recorded Time 590 Product containin g penicilli n (product) medicatio n Not available Not available Not available 02/22/2020 24336 8001 SNOMED Dinorah Goldsmith [facility], [facility] 0 17:03:45 591 Substance with sulfonami de structure and antibacte rial mechanism of action (substanc e) medicatio n Not available Not available Not available 02/22/2020 62281 8003 SNOMED Dinorah Goldsmith [facility] 0 17:03:54 Medications Name Sig Start Date Stop Date Status Note LastModified by Organization Details LastModified Time Cytotec 200 mcg tablet insert 4 by by vagina route all at once 03/14 completed Prescrib ed Elsewher e: No Locat ion: [facility] odify By: amkuhl E ncounter DateTime : 03/08/20 15 03:00:00 PM [...] Prescrib ed Elsewher e: No Locat ion: [facility] odify By: tyoung Eris ncounter DateTime : 04/19/20 13 04:00:00 PM [...] Elsewher e: No Locat ion: Noel schulte [facility] odify By: kristina pepe DateTime : 11/19/19 16 11:33:36 AM Not Available Not Available Not Available Valtrex 500 mg tablet TAKE 1 TABLET BY ORAL ROUTE 2 TIMES EVERY DAY 07/08 completed Prescrib ed Elsewher e: No Locat ion: [facility] odify By: volodymyr torres DateTime : 07/20/20 16 08:58:16 AM Not Available Not Available Not Available Vitamin D2 1,250 mcg (50,000 unit) capsule take 1 capsule (89991DI ITS) by oral route every week 05/26 completed Prescrib ed Elsewher e: No Locat ion: [facility] odify By: meera stallings DateTime : 01/29/20 16 09:34:48 AM Not Available Not Available Not Available cefdinir 300 mg capsule 10/21 completed Not Available Not Available Not Available Vitamin 27 mg iron-0.8 mg tablet take 1 tablet by oral route every day 03/20 completed Prescrib ed Elsewher e: Yes Loca tion: Noel schulte [facility] odify By: silvio stallings DateTime : [...] ed Elsewher e: No Locat ion: [facility] odify By: meera stallings DateTime : 01/02/20 16 03:23:46 PM Not Available Not Available Not Available Tirosint 25 mcg capsule take 1 capsule (25MCG) by oral route every day 12/15 completed Prescrib ed Elsewher e: Yes Loca tion: [facility] odify By: lamonte stallings DateTime : 02/18/20 13 09:30:00 AM Not Available Not Available Not Available Triemmaen-D uo DHA 29 mg-1 mg-400 mg oral pack take 1 by Oral route every day 09/03 completed Prescrib ed Elsewher e: No Locat ion: [facility] odify By: volodymyr torres DateTime : 08/21/20 [...] Prescrib ed Elsewher e: No Locat ion: [facility] odify By: volodymyr torres DateTime : 02/25/20 17 09:14:27 AM Not Available Not Available Not Available Se-Peace 19 29 mg iron-1 mg tablet TAKE ONE TABLET BY MOUTH DAILY 2021 active Not Available Not Available Not Avai lable Vitals Date Recorded Systolic And Diastolic Provider Name and Address Organization Details Last Updated DateTime 10/21/2021 132/80 mm[Hg] Babs Fletcher, ALANA- [address], [place], [address], [place] [facility] 10/21/2021 12:25:50 Date Recorded Body height Body mass index (BMI) Body weight Provider Name and Address Organization Details Last Updated DateTime 10/21/2021 153.67 cm 40 kg/m2 62596.21 g Dinorah Goldsmith [facility] 10/21/2021 11:56:50 Date Recorded Body height Body mass index (BMI) Body weight Systolic And Diastolic Provider Name and Address Organization Details Last Updated DateTime 11/01/2020 152.4 cm 38.1 kg/m2 35503.51 g 155/76 mm[Hg] Dinorah Goldsmith [facility] 11/01/2020 14:46:28 Date Recorded Body height Body mass index (BMI) Body weight Systolic And Diastolic Provider Name and Address Organization Details Last Updated DateTime 09/13/2020 152.4 cm 40.4 kg/m2 73495.620 59 g 132/82 mm[Hg] Molly Hilda [facility] 09/13/2020 17:04:59 Date Recorded Body height Body mass index (BMI) Body weight Systolic And Diastolic Provider Name and Address Organization Details Last Updated DateTime 09/20/2020 152.4 cm 39.8 kg/m2 95018.843 48 g 163/91 mm[Hg] Dinorah Goldsmith [facility] 09/20/2020 11:31:10 Date Recorded Body height Body mass index (BMI) Body weight Systolic And Diastolic Provider Name and Address Organization Details Last Updated DateTime 10/01/2020 152.4 cm 37.5 kg/m2 80083.74 g 169/88 mm[Hg] Becky Whitley [facility] 10/01/2020 17:29:04 Social History Question Answer Notes LastModified by Organizat ion Details LastModified Time Tobacco Smoking Status Never Smoker Dinorah Goldsmith [facility] 10/21/2021 11:57:20 Do You Have An Advance Directive? No Information n ot available 10/21/2021 If You Are , What Was Your Level Of Alcohol Consumption Prior To ? Occasional [email or web address] Information not available 10/21/2021 Are You Blind Or Do You Have Difficulty Seeing? No [email or web address] Information n ot available 10/21/2021 What Is Your Level Of Caffeine Consumption? Heavy [email or web address] Information not available 10/21/2021 In The 14 Days Before Symptom Onset, Have You Had Close Contact With A Laboratory-confirm ed COVID-19 While That Case Was Ill? No [email or web address] Information n ot available 10/21/2021 In The 14 Days Before Symptom Onset, Have You Had Close Contact With A Person Who Is Under Investigation For COVID-19 While That Person Was Ill? No [email or web address] Information not available 10/21/2021 Have You Been To An Area Known To Be High Risk For COVID-19? No [email or web address] Information not available 10/21/2021 Are You Deaf Or Do You Have Serious Difficulty Hearing? No [email or web address] Information not available 10/21/2021 What Type Of Diet Are You Following? REGULAR [email or web address] Information n ot available 10/21/2021 Which Illicit Or Recreational Drugs Have You Used? None [email or web address] Information not available 10/21/2021 Are There Any Guns Present In Your Home? No [email or web address] Information not available 10/21/2021 Illicit Drugs Pre- No [email or web address] Information not available 10/21/2021 What Was The Date Of Your Most Recent Tobacco Screening? 11/01/2020 [email or web address] Information not available 10/21/2021 Do You Use Protection During Sex? No [email or web address] Information not available 10/21/2021 Do You Use Your Seat Belt Or Car Seat Routinely? Yes [email or web address] Information not available 10/21/2021 Do You Have Smoke And Carbon Monoxide Detectors In Your Home? Yes Information not available 10/21/2021 How Much Tobacco Do You Smoke? No [email or web address] Information not available 02/23/2020 Smoking Pre- No [email or web address] Information not available 10/21/2021 Do You Use Sunscreen Routinely? No [email or web address] Information not available 10/21/2021 Have You Used IV Drugs? No [email or web address] Information not available 10/21/2021 Sex: Unknown Functional Status Question Answer Note LastModified by Organizat ion Details LastModified Time Do you use any illicit or recreational drugs? No [email or web address] Information not available 10/21/2021 What is your level of alcohol consumption? Occasional [email or web address] Information not available 02/23/2020 Do you or have you ever used smokeless tobacco? Never used smokeless tobacco [email or web address] Information not available 10/21/2021 Are you able to walk? 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 Never used electronic cigarettes [email or web address] Information not available 10/21/2021 What is your exercise level? Moderate [email or web address] Information not available 02/23/2020 Mental Status Question Answer Note LastModified by Organization D etails LastModified Time Do you feel stressed (tense, restless, nervous, or anxious, or unable to sleep at night)? [id number] [email or web address] Information not available 10/21/2021 Family History Relationship Description Onset Age of this Age Resolved Age Notes LastModified by Organization Details LastModified Time Maternal Grandmother Malignant neoplasm of lung [email or web address] Not available 02/21 17:11:26 Mother Hypertensive disorder [email or web address] Not available 02/21 17:11:36 Mother Heart disease [email or web address] Not available 02/22 17:48:55 Mother Hyperlipidem ia hbleier Not available 2021 11:40:38 Daughter Aicardi's syndrome hbleier Not available 2021 11:40:38 Medical History Condition Response Allergies (Food, seasonal, environmental ) N Other N Drug/Latex Allergies/Reactions N Blood Transfusion N Breast Cancer N Dermatologic Disorders N Lung Disease N Defects or Inherited Disease N Breast Problem N Gestational Diabetes N Hematologic disorders N Anesthesia Complications N History of STI Y Deep Vein Thrombosis N Polycystic ovary syndrome N Anxiety Disorder N Autoimmune disease N Arthritis N Polyps N Infertility N Acid Reflux (GERD) N History of abnormal pap Y Cancer N Varicosities N Stroke N Neurologic/Epilepsy Y Endometriosis N High Cholesterol N Fibromyalgia N Headaches N Kidney Disease N Heart Problems N Thyroid Problems Y Kidney or Bladder Problems N GI Problems N Eating Disorder N Anemia [...] Diagnosis ICD10 Code Diagnosis Note [id number] [facility] [address] [address] 02/23/2020 12:22:53 02/23/2020 16:12:14 Amenorrhea 38045368 N91.2 [id number] Oneil Morales MD [facility] [address],[place] [address] 03/12/2020 14:08:17 03/12/2020 16:16:56 Routine care 456454883 Z34.81 [id number] Oneil Morales MD [facility] [address],[place] [address] 03/12/2020 14:08:58 03/12/2020 16:38:06 screening 160921210 Z36.82 [id number] [facility] [address],[place] [address] 04/09/2020 11:09:19 04/09/2020 11:53:57 Routine care 559846931 Z34.02 [id number] Oneil Morales MD [facility] [address],[place] [address] 05/14/2020 10:37:01 05/14/2020 11:56:25 screening for malformation 989443347 Z36.3 O09.522 Z3A.21 [id number] [facility] [address],[place] [address] 05/14/2020 10:37:17 05/14/2020 12:25:03 Routine care 119043822 Z34.02 [id number] Debbi Diaz [facility] [address],[place] [address] 06/04/2020 11:42:37 06/04/2020 13:27:43 Routine care 577216369 Z34.02 [id number] Debbi Diaz [facility] [address],[place] [address] 07/05/2020 10:31:32 07/05/2020 12:06:02 Routine care 382604713 Z34.02 [id number] Oneil Morales MD [facility] [address],[place] [address] 07/19/2020 11:19:45 07/19/2020 11:39:00 screening 969450193 Z36.89 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 [id number] Debbi Diaz [facility] [address],[place] [address] 08/02/2020 10:32:28 08/02/2020 14:31:55 Routine care 306442363 Z34.02 [id number] Oneil Morales MD [facility] [address],[place] [address] 08/02/2020 10:33:24 08/02/2020 14:30:28 Uterine size for dates discrepancy 435498638 O26.843 [id number] [facility] [address],[place] [address] 08/16/2020 10:33:24 08/16/2020 12:29:45 Routine care 068720680 Z34.02 [id number] [facility] [address],[place] [address] 08/27/2020 10:43:55 08/27/2020 12:14:49 Herpes simplex 79931007 B00.9 Multigravi da of advanced maternal age 831458445 O09.529 [id number] Oneil Morales MD [facility] [address],[place] [address] 09/03/2020 11:12:50 09/03/2020 11:34:57 Routine care 344238792 Z34.81 [id number] Oneil Morales MD [facility] [address],[place] [address] 09/13/2020 16:47:36 09/13/2020 17:41:40 Routine care 486619723 Z34.81 [id number] Debbi Diaz [facility] [address],[place] [address] 09/20/2020 11:10:40 09/20/2020 11:56:15 Routine care 484396460 Z34.02 [id number] Arabella Chery MD [facility] [address],[place] [address] 10/01/2020 17:15:54 10/01/2020 18:01:32 Cloudy urine 1946252 R82.90 Acute cystitis 57909996 N30.01 Acute urin fiona tract infection 328579269 N39.0 [id number] Debbi Diaz [facility] [address],[place] [address] 11/01/2020 14:27:13 11/04/2020 16:08:48 care 208583240 Z39.2 [id number] Babs Fletcher [facility] [address],[place] [address] 10/21/2021 11:32:51 10/21/2021 12:56:39 Gynecologic examination 83371911 Z01.419 Suggested Calcium with Vitamin D 1200-1500m g daily. Patient advised to get an annual flu shot in the fall and she could obtain at [facility] or [facility] care clinic. Also to obtain TDap [...] concerns.G enetic screen discussed Screening mammography 24 409721 Z12.31 Health Concerns Section Related Observation LastModified by Organization Detai ls LastModified Time None Recorded Concern Status LastModified by Organization Details LastModified Time None Recorded Advance Directives Directive N: Payers Insurance Date Sequence Insurance Name Policy Number Policy Kraus Covered Member ID Kraus Member ID Guarantor Name 09/11/2021 3 [place] [id number] Silviano Mccarthy [id number] Augustashad Foremane 10/21/2021 1 [place] [id number] Silviano Mccarthy [id number] Augusta L Clarkston 10/21/2021 2 [place] Augusta Foremane [id number] Augusta L Clarkston 09/18/2021 3 [place] Augusta Clarkston [id number] Augustashad Mccarthy Notes Date Note Type Note Provider Name [...] weeks. Arabella Chery MD [address], [place], [address], [facility] 10/01/2020 18:00:50 11/01/2020 text/html VisitReported bypatient.Notes:pp visit, doing well, declines bcm, , bleeding stopped, c/o increased right hip pain since delivery Debbi Diaz, RU [address], [place], [address], [facility] 11/01/2020 15:32:40 10/21/2021 text/html Annual [...] risk HPV typing; Needs to schedule mammogram Babs Fletcher [facility]- [address], [place], [address], [facility] 10/21/2021 12:27:29 OBGyn Episode Ob Episode Information Episode Created Date Number of Fetuses Patient Bloodtype Patient rh Status Prepregnancy Weight lbs Domestic Partner Domestic Partner Phone Father Name Foam Rubber Mixer Status 02/22/20 20 1 CLOSED Fetus Data [...] Domestic Partner Domestic Partner Phone Father Name Foam Rubber Mixer Status 02/22/20 20 1 CLOSED Fetus Data [...] Domestic Partner Domestic Partner Phone Father Name Foam Rubber Mixer Status 02/22/20 1 CLOSED Fetus Data First [...] Domestic Partner Domestic Partner Phone Father Name Foam Rubber Mixer Status 02/22/20 20 1 CLOSED Fetus Data [...] Domestic Partner Domestic Partner Phone Father Name Foam Rubber Mixer Status 02/22/20 20 1 CLOSED Fetus Data [...] Complications Tubal Sterilization Discharge Date Comments 5 2015 miscarria ge Discharge Information Feeding Method Contraceptive Method Maternal HG B and HCT Levels Ob Episode Information Episode Created Date Number of Fetuses Patient Bloodtype Patient rh Status Prepregnancy Weight lbs Domestic Partner Domestic Partner Phone Father Name Foam Rubber Mixer Status 03/12/20 20 1 O Negative 186 CLOSED Fetus Data First Name Last Name Admitted to NICU Weight (g) Sex Living Outcome Pediatric Complications Fetus ID Race Codes Race Delivery Type 2863.29 95 F Full Term 1918 Vaginal Delivery Problems Problem Notes Child born with Acardia Synd [facility] - 05/21/20 10:30am u/s only and 06/11/20 u/s only complete anatomy Problem Name Start Date End Date Resolution Snomed Code Not e Lumbar spinal meningocele 259171293 History of thyroid disorder 575429672 07/19 TSH WNL Herpes simplex TREATMENT 26679611 hx - SP tx'd 08/27 valtrex Micah [...] Weight in lbs Pre/Post Dialysis Refused Weight 188.125185075782 BP Diastolic BP Location Tested BP Systolic BP Type 77 138 Fetus Heart Rate Present A 164 Fetus Movement A No Comments Flowsheet Date 04/09/2020 Evans Score Blood Edema Fundus Height Fundus Units Glucose Ketones Leukocytes Nitrite Labor Signs Protein Cervic Dilation Cervic Effacement Cervic Station neg trace trace Type Weight in lbs Pre/Post Dialysis Refused Weight 192.424657664869 BP Diastolic BP Location Tested BP Systolic [...] Weight in lbs Pre/Post Dialysis Refused Weight 195.993260897590 BP Diastolic BP Location Tested BP Systolic [...] Weight in lbs Pre/Post Dialysis Refused Weight 197.013712583174 BP Diastolic BP Location Tested BP Systolic [...] Weight in lbs Pre/Post Dialysis Refused Weight 201.793071233588 BP Diastolic BP Location Tested BP Systolic [...] Weight in lbs Pre/Post Dialysis Refused Weight 203.73748099001 BP Diastolic BP Location Tested BP Systolic [...] Weight in lbs Pre/Post Dialysis Refused Weight 203.10548434869 BP Diastolic BP Location Tested BP Systolic [...] Weight in lbs Pre/Post Dialysis Refused Weight 205.051641686501 BP Diastolic BP Location Tested BP Systolic [...] Weight in lbs Pre/Post Dialysis Refused Weight 203.02393672586 BP Diastolic BP Location Tested BP Systolic [...] Weight in lbs Pre/Post Dialysis Refused Weight 205.968591533352 BP Diastolic BP Location Tested BP Systolic [...] Weight in lbs Pre/Post Dialysis Refused Weight 207.295682746834 BP Diastolic BP Location Tested BP Systolic BP Type 82 R arm 132 sitting Fetus Heart Rate Present Fetus Movement A Yes Comments Flowsheet Date 09/20/2020 Evans Score Blood Edema Fundus Height Fundus Units Glucose Ketones Leukocytes Nitrite Labor Signs Protein Cervic Dilation Cervic Effacement Cervic Station neg trace trace 4cm 80% Type Weight in lbs Pre/Post Dialysis Refused Weight 204.752531339383 BP Diastolic BP Location Tested BP Systolic [...] Estim ated Date of Delivery false Thalassemia (Puerto Rican, Grenadian, Mediterranean, Or Background): MCV < 80 false Neural Tube Defect (Meningomyelocele, Spina Bifi da, Or Anencephaly) false Congenital Heart Defect false Down Syndrome false Enoc-Sachs (eg, Amish, Cajun, Dutch-New Zealander) f alse Zoey Disease false Sickle Cell Disease Or Trait () false Hemophilia Or Other Blood Disorders false Muscular Dystrophy false Cystic Fibrosis false Daksha's Chorea false Intellectual Disability/Autism false If Yes, [...] Post Complications Tubal Sterilization Discharge Date Comments 12/11/202 0 39.3 Discharge Information Feeding Method Contraceptive Method Maternal HG B and HCT Levels
--- OUTSIDE RECORDS SUMMARY | 2025-04-28 11:10 | XMS_ITS | Clinical Summary ---
Author Organization [facility] Address [address] [place] [address] Care Team Providers Care Weld Inspector Name Role Phone Unavailable Primary Care Provider Unavailabl e Source Comments [facility],non-owned Affiliates and Associated Physician Practices is amultiple site organization consisting of ambulatory clinics and hospital sitesin [place], [place], [place] and [place]. This disclosure is being madepursuant to the Care Everywhere program and may not contain all information available regarding this patient. Last updated 18.[facility] Allergies Active Allergy Reactions Criticality Noted Date Comments Latex Rash Low 09/22/2013 Penicillins Rash Low 09/22/2013 Sulfa Drugs Rash Low 09/22/2013 Medications * Be aware that medications may not be up to date on this document. Alwaysverify current medications with the patient. levothyroxine (SYNTHROID) 50 MCG tablet Take 50 [...] were not included. SKILLED NURSING PATIENT--PLEASE CALL [phone] IF TRIAGED OR ADMITTED THIS CARE PLAN IS BASED ON EVALUATION, SUBJECT TO CHANGE BASED ON ASSESSMENT. 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 Planned surveillance: Repeat ultrasound on 10.27.13 [place] [facility] [place] Planned delivery location: [facility] Planned GA at delivery: Term Planned mode of delivery: TBD- Hx of x2 Care Provider: Dr. Adeline Giraldo [place] [facility] [place] consultants involved: [facility]- Larry; Neurology- Niall; Neurosurgery- Yves; Neonatology- Dontrell; Genetics- Lorene; Fertilizer Processing Supervisor- Elbert care needed at : evaluation Planned [...] studies by calling Dr. Myles Briceño at [phone]. Social Service Note: There are no social service concerns identified at this time Ground Intelligence Officer: Dr. Macy Cuevas ([place], [place]) *For further coordination, please refer to [...] drink = 0.6 oz pur e alcohol) Comments No Sex and Gender Information Value Date Recorded Sex Assigned at Not on file Legal Sex Female 6:26 AM CHRISTIAN SCIENCE READER Gender Identity Not on file Sexual Orientation Not on file Last Filed Vital Signs Vital Sign Reading Time Taken Comments Blood Pressure 135/83 09/28/2013 10:35 AM CHRISTIAN SCIENCE READER Pulse 96 09/28/2013 10:35 AM CHRISTIAN SCIENCE READER Temperature 36.1 C (96.9 F) 06/11/2020 10:07 AM CDT Respiratory Rate - - Oxygen Saturation - - Inhaled Oxygen Concentration - - Weight 87.5 kg (193 lb) 09/28/2013 10:35 AM CHRISTIAN SCIENCE READER Height - - Body Mass Index - - Plan of Treatment Health Maintenance Due Date Last Done Comments LIPID TESTING 1980 MAMMOGRAM 1980 HIV SCREENING 1995 HEPATITIS C SCREENING 07/16/1998 DTAP/TDAP/TD VACCINES (1 - Tdap) 1999 HEPATITIS B VACCINE (1 of 3 - 19+ 3-dose series) 1999 HPV VACCINE (1 - 3-dose SCDM series) 2007 COVID-19 VACCINE (1 - 2023-2 5 season) 2024 DEPRESSION SCREENING 10/11/2024 INFLUENZA VACCINE (#1) 2025 ZOSTER VACCINE (1 of 2) 2030 HIB VACCINE Aged Out No longer eligi ble based on patient's age to complete this topic MENINGOCOCCAL (Group B) VACC INE SHARED DECISION-MAKING Aged Out No longer eligibl e based on patient's age to complete this topic MENINGOCOCCAL GROUPS A/C/Y/W VACCINE Aged Out No longer eligible b ased on patient's age to complete this topic PNEUMOCOCCAL VACCINE Aged Out No long er eligible based on patient's age to complete this topic Insurance [place]ICAID - [place] COUNTS INCLUDE [facility]EDS AT [facility]
--- OUTSIDE RECORDS SUMMARY | 2025-04-28 11:10 | XMS_ITS | Encounter Summary ---
Author Organization [facility] Address [address] [place] [address] Care Team Providers Care Unit Secy Name Role Phone Nadja Rodriguez [facility] Primary Care Provider +1 -[phone] Encounter Details Date Type Department Care Team (Late st Contact Info) Description 01/19/2024 MyChart Message Enc [address] [place] [address] Nadja Rodriguez, [place] [address] [place] [phone] Mentally tired Social History Tobacco Use Types [...] Sex Assigned at Female 12/13/2023 10:05 AM HOSPITAL INSURANCE REPRESENTATIVE Legal Sex Female 12:24 AM CDT Gender Identity Female 12/13/2023 10:05 AM HOSPITAL INSURANCE REPRESENTATIVE Sexual Orientation Not on file documented as of this encounter Plan of Treatment Upcoming Encounters Date Type Department Care Team (Late st Contact Info) Description 05/11/2025 10:00 AM CDT Office Visit [facility] [address] [place] [address] Nadja Rodriguez FNP [address] [place], [place] [phone] 05/29/2025 1:00 PM CDT Office Visit [facility] Medical Group Multispecialty Care - [address], [address] [place] [address] Nadja Rodriguez FNP [address] [facility] [place] [address] Morris Foreman MD [address] [place] [address] documented as of this encounter Visit Diagnoses Not on filedocumented in this encounter Care Teams Unit Secy Relationship Specialty Start Date End Date Nadja Rodriguez FNP [address] [place] [address] Dr [place], [place] [phone] PCP - General Nurse Practitioner Family 11/12/20 documented as of this encounter
--- OUTSIDE RECORDS SUMMARY | 2025-04-28 11:10 | XMS_ITS | Encounter Summary ---
Author Organization [facility] Address [address] [place] [address] Care Team Providers Care Communications Maintainer Name Role Phone Nadja Rodriguez [facility] Primary Care Provider +1 -[phone] Encounter Details Date Type Department Care Team (Late st Contact Info) Description 01/13/2025 Evolvert Message Enc [facility] [address] [place] [address] Nadja Rodriguez, [facility] [address] [place] [address] Happy pill Social History Tobacco Use Types Packs/Day Years [...] Sex Assigned at Female 12/13/2023 10:05 AM BOAT CLEANER Legal Sex Female 12:24 AM CDT Gender Identity Female 12/13/2023 10:05 AM BOAT CLEANER Sexual Orientation Not on file documented as of this encounter Progress Notes * Angela Herrera LPN - 01/13/2025 11:44 AM CDT Forward to PCP documented in this encounter Plan of Treatment Upcoming Encounters Date Type Department Care Team (Late st Contact Info) Description 05/11/2025 10:00 AM CDT Office Visit [facility] [address] [facility] [address] [place] [phone] Nadja Rodriguez FNP [address] [place] [address] [place] [address] 05/29/2025 1:00 PM CDT Office Visit [facility] Medical Group Multispecialty Care - [facility] [address] [facility], [address] [place] [address] Nadja Rodriguez FNP [address] [place] [address] [address] [place] [phone] Morris Foreman MD [address] [place] [address] documented as of this encounter Visit Diagnoses Not on filedocumented in this encounter Care Teams Communications Maintainer Relationship Specialty Start Date End Date Nadja Rodriguez FNP [address] [place] [address] Dr [place] [phone] PCP - General Nurse Practitioner Family 11/12/20 documented as of this encounter
--- OUTSIDE RECORDS SUMMARY | 2025-04-28 11:10 | XMS_ITS | Encounter Summary ---
Author Organization [facility] Address [address] [place] [address] Care Team Providers Care Driver License Technician Name Role Phone Nadja Rodriguez [facility] Primary Care Provider +1 -[phone] Encounter Details Date Type Department Care Team (Late st Contact Info) Description 01/26/2025 Novavaxt Message Enc [facility] [address] [place] [address] Nadja Rodriguez, [facility] [address] [place] [address] Test Social History Tobacco Use Types Packs/Day Years [...] Sex Assigned at Female 12/13/2023 10:05 AM MOVIE SHOT CAMERAMAN Legal Sex Female 12:24 AM CDT Gender Identity Female 12/13/2023 10:05 AM MOVIE SHOT CAMERAMAN Sexual Orientation Not on file documented as of this encounter Plan of Treatment Upcoming Encounters Date Type Department Care Team (Late st Contact Info) Description 05/11/2025 10:00 AM CDT Office Visit [facility] [address] [place] [address] Nadja Rodriguez FNP [address] [place] [address] 05/29/2025 1:00 PM CDT Office Visit [facility] Medical Group Multispecialty Care - [facility] [address] [facility], [address] [place] [address] Nadja Rodriguez FNP [address] [facility] [place] [address] Morris Foreman MD [address] [place] [address] documented as of this encounter Visit Diagnoses Not on filedocumented in this encounter Care Teams Driver License Technician Relationship Specialty Start Date End Date Nadja Rodriguez FNP [address] [facility] [place] [address] PCP - General Nurse Practitioner Family 11/12/20 documented as of this encounter
--- OUTSIDE RECORDS SUMMARY | 2025-04-28 11:10 | XMS_ITS | Encounter Summary ---
Author Organization [facility] Address [address] [place] [address] Care Team Providers Care Ob Gyn Name Role Phone Nadja Rodriguez [facility] Primary Care Provider +1 -[phone] Encounter Details Date Type Department Care Team (Late st Contact Info) Description 03/29/2024 MyChart Message Enc [facility] [address] [place] [address] Nadja Rodriguez, [place] [address] [place] [phone] Blood work Social History Tobacco Use Types [...] Sex Assigned at Female 12/13/2023 10:05 AM STATISTICS MANAGER Legal Sex Female 12:24 AM CDT Gender Identity Female 12/13/2023 10:05 AM STATISTICS MANAGER Sexual Orientation Not on file documented as of this encounter Plan of Treatment Upcoming Encounters Date Type Department Care Team (Late st Contact Info) Description 05/11/2025 10:00 AM CDT Office Visit [facility] [address] [place] [address] Nadja Rodriguez FNP [address] [place], [place] [phone] 05/29/2025 1:00 PM CDT Office Visit [facility] Medical Group Multispecialty Care - [address], [address] [place] [address] Nadja Rodriguez FNP [address] [facility] [place] [address] Morris Foreman MD [address] [place] [address] documented as of this encounter Visit Diagnoses Not on filedocumented in this encounter Care Teams Ob Gyn Relationship Specialty Start Date End Date Nadja Rodriguez FNP [address] [place] [address] Dr [place], [place] [phone] PCP - General Nurse Practitioner Family 11/12/20 documented as of this encounter
--- OUTSIDE RECORDS SUMMARY | 2025-04-28 11:10 | XMS_ITS | Encounter Summary ---
Author Organization [facility] Address [address] [place] [address] Care Team Providers Care Manager Diesel Name Role Phone Nadja Rodriguez [facility] MANAGER Primary Care Provider +1 [phone] Encounter Details Date Type Department Care Team (Late st Contact Info) Description 01/14/2024 MyChart Message Enc [facility] Medical Group [facility] [id number] [place] [phone] Benoit Mccarthy, DPM [address] [place] [phone] Time sooner Social History Tobacco Use [...] Sex Assigned at Female 12/13/2023 10:05 AM SWITCH TENDER Legal Sex Female 12:24 AM CDT Gender Identity Female 12/13/2023 10:05 AM SWITCH TENDER Sexual Orientation Not on file documented as of this encounter Plan of Treatment Upcoming Encounters Date Type Department Care Team (Late Contact Info) Description 05/11/2025 10:00 AM CDT [facility] Visit [facility] 201 [facility] [place] [address] Nadja Rodriguez FNP [address] [facility] [place] [address] 05/29/2025 1:00 PM CDT Office Visit [facility] Medical Group Multispecialty Care - [address], [address] [place] [address] Nadja Rodriguez FNP [address] [facility] [place] [address] Morris Foreman MD [address] [place] [address] documented as of this encounter Visit Diagnoses Not on filedocumented in this encounter Care Teams Manager Diesel Relationship Specialty Start Date End Date Nadja Rodriguez FNP [address] [place] [address] Dr [place] [phone] PCP - General Nurse Practitioner Family 11/12/20 documented as of this encounter
--- OUTSIDE RECORDS SUMMARY | 2025-04-28 11:10 | XMS_ITS | Encounter Summary ---
Author Organization [facility] Address [address] [place] [address] Care Team Providers Care Performing Arts Road Manager Name Role Phone Nadja Rodriguez Arp[facility] HEALTH INSURANCE AGENT Primary Care Provider +1 [phone] Encounter Details Date Type Department Care Team (Late st Contact Info) Description 01/31/2024 Urban Metricst Message Enc [facility] Medical Group [facility] [place] [phone] [place] [phone] Benoit Mccarthy, DPM [address] [place] [phone] Mri Social History Tobacco Use Types [...] Sex Assigned at Female 12/13/2023 10:05 AM BELT AND LINK SHOP SUPERVISOR Legal Sex Female 12:24 AM CDT Gender Identity Female 12/13/2023 10:05 AM BELT AND LINK SHOP SUPERVISOR Sexual Orientation Not on file documented as of this encounter Plan of Treatment Upcoming Encounters Date Type Department Care Team (Late st Contact Info) Description 05/11/2025 10:00 AM CDT Office Visit [facility] [address] [place] [address] Nadja Rodriguez FNP [address] [place] [address] 05/29/2025 1:00 PM CDT Office Visit [facility] Medical Group Multispecialty Care - [address], [address] [place] [address] Nadja Rodriguez FNP [address] [facility] [address] Morris Foreman MD [address] [place] [address] documented as of this encounter Visit Diagnoses Not on filedocumented in this encounter Care Teams Performing Arts Road Manager Relationship Specialty Start Date End Date Nadja Rodriguez FNP [address] [place] [address] [place] [address] PCP - General Nurse Practitioner Family 11/12/20 documented as of this encounter
--- OUTSIDE RECORDS SUMMARY | 2025-04-28 11:10 | XMS_ITS | Encounter Summary ---
Author Organization [facility] Address [address] [place] [address] Care Team Providers Care Zinc Miner Name Role Phone Nadja Rodriguez [facility] Primary Care Provider +1 -[phone] Encounter Details Date Type Department Care Team (Late st Contact Info) Description 03/12/2023 Pixellet Message Enc [facility] [address] [place] [address] Nadja Rodriguez [facility] [address] [place] [phone] Medicane Social History Tobacco Use Types Packs/Day [...] Sex Assigned at Female 12/13/2023 10:05 AM CONTINUITY COORDINATOR Legal Sex Female 12:24 AM CDT Gender Identity Female 12/13/2023 10:05 AM CONTINUITY COORDINATOR Sexual Orientation Not on file COVID-19 Exposure [...] 10:00 AM CDT Office Visit [facility] [address] [place], [place] [phone] Nadja Rodriguez FNP [address] [place] [address] [place] [phone] 05/29/2025 1:00 PM CDT Office Visit [facility] Medical Group Multispecialty Care - [address], [address] [place] [address] Nadja Rodriguez FNP [address] [place] [address] [place] [phone] Morris Foreman MD [address] [place] [address] documented as of this encounter Visit Diagnoses Not on filedocumented in this encounter Care Teams Zinc Miner Relationship Specialty Start Date End Date Nadja Rodriguez FNP [address] [place] [address] Dr [place], [place] [phone] PCP - General Nurse Practitioner Family 11/12/20 documented as of this encounter
--- OUTSIDE RECORDS SUMMARY | 2025-04-28 11:10 | XMS_ITS | Encounter Summary ---
Author Organization [facility] Address [address] [place] [address] Care Team Providers Care Building Supplies Salesperson Retail Name Role Phone Nadja Rodriguez [facility] Primary Care Provider +1 -[phone] Encounter Details Date Type Department Care Team (Late st Contact Info) Description 04/25/2025 Enhanced Surface Dynamicst Message Enc [facility] [address] [place] [address] Nadja Rodriguez, [facility] [address] [place] [address] Renew or is it ok to take Social History Tobacco Use Types Packs/Day Years [...] Sex Assigned at Female 12/13/2023 10:05 AM BOXING PROMOTER Legal Sex Female 12:24 AM CDT Gender Identity Female 12/13/2023 10:05 AM BOXING PROMOTER Sexual Orientation Not on file documented as of this encounter Plan of Treatment Upcoming Encounters Date Type Department Care Team (Late st Contact Info) Description 05/11/2025 10:00 AM CDT Office Visit [facility] [address] [place] [address] Nadja Rodriguez FNP [address] [place] [address] 05/29/2025 1:00 PM CDT Office Visit [facility] Medical Group Multispecialty Care - [facility] 3 [facility], [address] [place] [address] Nadja Rodriguez FNP [address] [facility] [place] [address] Morris Foreman MD [address] [place] [address] documented as of this encounter Visit Diagnoses Not on filedocumented in this encounter Care Teams Building Supplies Salesperson Retail Relationship Specialty Start Date End Date Nadja Rodriguez FNP [address] [place] [address] [place] [address] PCP - General Nurse Practitioner Family 11/12/20 documented as of this encounter
--- OUTSIDE RECORDS SUMMARY | 2025-04-28 11:10 | XMS_ITS | Encounter Summary ---
Author Organization [facility] Address [address] [place] [address] Care Team Providers Care Solid Waste Landfill Technician Name Role Phone Nadja Rodriguez [facility] Primary Care Provider +1 -[phone] Encounter Details Date Type Department Care Team (Late st Contact Info) Description 01/14/2025 Apogenixt Message Enc [facility] [address] [place] [address] Nadja Rodriguez, [facility] [address] [place] [address] Question Social History Tobacco Use Types Packs/Day [...] Sex Assigned at Female 12/13/2023 10:05 AM CERAMICS MACHINE OPERATOR Legal Sex Female 12:24 AM CDT Gender Identity Female 12/13/2023 10:05 AM CERAMICS MACHINE OPERATOR Sexual Orientation Not on file documented as of this encounter Plan of Treatment Upcoming Encounters Date Type Department Care Team (Late st Contact Info) Description 05/11/2025 10:00 AM CDT Office Visit [facility] [address] [place] [address] Nadja Rodriguez FNP [address] [place] [address] 05/29/2025 1:00 PM CDT Office Visit [facility] Medical Group Multispecialty Care - [facility] [address] [facility], [address] [place] [address] Nadja Rodriguez FNP [address] [facility] [place] [address] Morris Foreman MD [address] [place] [address] documented as of this encounter Visit Diagnoses Not on filedocumented in this encounter Care Teams Solid Waste Landfill Technician Relationship Specialty Start Date End Date Nadja Rodriguez FNP [address] [facility] [place] [address] PCP - General Nurse Practitioner Family 11/12/20 documented as of this encounter
[2025-04-28 11:21] VITALS: BP 121/66; PULSE 72; RESP 20; TEMP 36.3; O2SAT 100
--- OUTSIDE RECORDS SUMMARY | 2025-04-28 11:50 | XMS_ITS | Encounter Summary ---
Author Organization [facility] Address [address] [place] [address] Care Team Providers Care Driver Name Role Phone Nadja Rodriguez [facility] Primary Care Provider +1 -[phone] Encounter Details Date Type Department Care Team (Late st Contact Info) Description 08/16/2024 MyChart Message Enc [address] [place] [phone] Nadja Rodriguez, [address] [place], [place] [phone] Mix w water Social History Tobacco Use [...] Sex Assigned at Female 12/13/2023 10:05 AM SUPERVISOR CONTINUOUS WELD PIPE MILL Legal Sex Female 12:24 AM CDT Gender Identity Female 12/13/2023 10:05 AM SUPERVISOR CONTINUOUS WELD PIPE MILL Sexual Orientation Not on file documented as of this encounter Plan of Treatment Upcoming Encounters Date Type Department Care Team (Late st Contact Info) Description 05/11/2025 10:00 AM CDT Office Visit [facility] [address] [place] [address] Nadja Rodriguez FNP [address] [place], [place] [phone] 05/29/2025 1:00 PM CDT Office Visit [facility] Medical Group Multispecialty Care - [address], [address] [place] [address] Nadja Rodriguez FNP 201 [facility] [place] [address] Morris Foreman MD [address] [place] [address] documented as of this encounter Visit Diagnoses Not on filedocumented in this encounter Care Teams Driver Relationship Specialty Start Date End Date Nadja Rodriguez FNP [address] [place] [address] Dr [place], [place] [phone] PCP - General Nurse Practitioner Family 11/12/20 documented as of this encounter
--- OUTSIDE RECORDS SUMMARY | 2025-04-28 11:50 | XMS_ITS | Encounter Summary ---
Author Organization [facility] Address [address] [place] [address] Care Team Providers Care Business Operations Analyst Name Role Phone Nadja Rodriguez [facility] Primary Care Provider +1 -[phone] Encounter Details Date Type Department Care Team (Late st Contact Info) Description 06/08/2024 DonorsPlayt Message Enc [facility] [address] [place] [address] Nadja Rodriguez, [facility] [address] [place] [address] Med Social History Tobacco Use Types [...] Sex Assigned at Female 12/13/2023 10:[address]NICIAN Legal Sex Female 12:24 AM CDT Gender Identity Female 12/13/2023 10:[address]CHNICIAN Sexual Orientation Not on file documented as of this encounter Progress Notes * Arabella Light MA - 06/08/2024 4:17 PM CDT Plz advise documented in this encounter Plan of Treatment Upcoming Encounters Date Type Department Care Team (Late st Contact Info) Description 05/11/2025 10:00 AM CDT Office Visit [facility] [address] [place] [address] Nadja Rodriguez FNP [facility] [place] [address] 05/29/2025 1:00 PM CDT Office Visit [facility] Medical Group Multispecialty Care - [facility] 3 [facility], [address] [place] [address] Nadja Rodriguez FNP [address] [facility] [place] [address] Morris Foreman MD [address] [place] [address] documented as of this encounter Visit Diagnoses Not on filedocumented in this encounter Care Teams Business Operations Analyst Relationship Specialty Start Date End Date Nadja Rodriguez FNP [address] [place] [address] Dr [place], [place] [phone] PCP - General Nurse Practitioner Family 11/12/20 documented as of this encounter
--- OUTSIDE RECORDS SUMMARY | 2025-04-28 11:50 | XMS_ITS | Encounter Summary ---
Author Organization [facility] Address [address] [place] [address] Care Team Providers Care Electronic Gluer Name Role Phone Nadja Rodriguez [facility] Primary Care Provider +1 -[phone] Encounter Details Date Type Department Care Team (Late st Contact Info) Description 03/12/2023 Conecta 2t Message Enc [facility] [address] [place] [address] Nadja Rodriguez [facility] [address] [place] [phone] Medicane Social History Tobacco Use Types Packs/Day [...] Sex Assigned at Female 12/13/2023 10:05 AM FINAL INSPECTION SUPERVISOR Legal Sex Female 12:24 AM CDT Gender Identity Female 12/13/2023 10:05 AM FINAL INSPECTION SUPERVISOR Sexual Orientation Not on file COVID-19 Exposure [...] Description 05/11/2025 10:00 AM CDT Office Visit [facility] [address] [place], [place] [phone] Nadja Rodriguez FNP [address] [place] [address] [place] [phone] 05/29/2025 1:00 PM CDT Office Visit [facility] Medical Group Multispecialty Care - [address], [address] [place] [address] Nadja Rodriguez FNP [address] [place] [address] [address] [place] [phone] Morris Foreman MD [address] [place] [address] documented as of this encounter Visit Diagnoses Not on filedocumented in this encounter Care Teams Electronic Gluer Relationship Specialty Start Date End Date Nadja Rodriguez FNP [address] [place] [address] Dr [place], [place] [phone] PCP - General Nurse Practitioner Family 11/12/20 documented as of this encounter
--- OUTSIDE RECORDS SUMMARY | 2025-04-28 11:50 | XMS_ITS | Encounter Summary ---
Author Organization [facility] Address [address] [place] [address] Care Team Providers Care Slag Mixer Name Role Phone Nadja Rodriguez [facility] Primary Care Provider +1 -[phone] Encounter Details Date Type Department Care Team (Late st Contact Info) Description 01/26/2025 Augmentrat Message Enc [facility] [address] [place] [address] Nadja Rodriguez, [facility] [address] [place] [address] Test Social History Tobacco Use Types [...] Sex Assigned at Female 12/13/2023 10:05 AM YACHT RIGGER Legal Sex Female 12:24 AM CDT Gender Identity Female 12/13/2023 10:05 AM YACHT RIGGER Sexual Orientation Not on file documented as of this encounter Plan of Treatment Upcoming Encounters Date Type Department Care Team (Late st Contact Info) Description 05/11/2025 10:00 AM CDT Office Visit [facility] [address] [place] [address] Nadja Rodriguez FNP [address] [place] [address] 05/29/2025 1:00 PM CDT Office Visit [facility] Medical Group Multispecialty Care - [facility] 3 [facility], [address] [place] [address] Nadja Rodriguez FNP 201 [facility] [place] [address] Morris Foreman MD [address] [place] [address] documented as of this encounter Visit Diagnoses Not on filedocumented in this encounter Care Teams Slag Mixer Relationship Specialty Start Date End Date Nadja Rodriguez FNP 201 [facility] [place] [address] PCP - General Nurse Practitioner Family 11/12/20 documented as of this encounter
--- OUTSIDE RECORDS SUMMARY | 2025-04-28 11:50 | XMS_ITS | Encounter Summary ---
Author Organization [facility] Address [address] [place] [address] Care Team Providers Care Asphalt Blender Name Role Phone Nadja Rodriguez [facility] Primary Care Provider [phone] Encounter Details Date Type Department Care Team (Late st Contact Info) Description 01/13/2025 Doubles Alleyt Message Enc [facility] [address] [place] [address] Nadja Rodriguez, [facility] [address] [place] [address] Happy pill Social History Tobacco Use [...] Sex Assigned at Female 12/13/2023 10:05 AM DESIGN TECHNOLOGY TEACHER Legal Sex Female 12:24 AM CDT Gender Identity Female 12/13/2023 10:05 AM DESIGN TECHNOLOGY TEACHER Sexual Orientation Not on file documented as of this encounter Progress Notes * Angela Herrera LPN - 01/13/2025 11:44 AM CDT Forward to PCP documented in this encounter Plan of Treatment Upcoming Encounters Date Type Department Care Team (Late st Contact Info) Description 05/11/2025 10:00 AM CDT Office Visit [facility] [address] [facility] [address] [place] [id number] Nadja Rodriguez FNP [address] [place] [address] [place] [id number] 05/29/2025 1:00 PM CDT Office Visit [facility] Group Multispecialty Care - [facility] [address] [facility], [address] [place] [address] Nadja Rodriguez FNP [address] [place] [address] [place] [id number] Morris Foreman MD [address] [place] [address] documented as of this encounter Visit Diagnoses Not on filedocumented in this encounter Care Teams Asphalt Blender Relationship Specialty Start Date End Date Nadja Rodriguez FNP [address] [place] [address] Dr [place] [id number] PCP - General Nurse Practitioner Family 11/12/20 documented as of this encounter
--- OUTSIDE RECORDS SUMMARY | 2025-04-28 11:50 | XMS_ITS | Encounter Summary ---
Author Organization [facility] Address [address] [place] [address] Care Team Providers Care Condenser Cleaner Name Role Phone Nadja Rodriguez [facility] Primary Care Provider [phone] [phone] Encounter Details Date Type Department Care Team (Late st Contact Info) Description 06/01/2024 MyChart Message Enc [address] [place] [address] Nadja Rodriguez, [place] [address] [place] [phone] Anxiety Social History Tobacco Use Types Packs/Day [...] Sex Assigned at Female 12/13/2023 10:05 AM CRIMPER OPERATOR Legal Sex Female 12:24 AM CDT Gender Identity Female 12/13/2023 10:05 AM CRIMPER OPERATOR Sexual Orientation Not on file documented as of this encounter Plan of Treatment Upcoming Encounters Date Type Department Care Team (Late st Contact Info) Description 05/11/2025 10:00 AM CDT Office Visit [facility] [address] [place] [address] Nadja Rodriguez FNP [address] [place], [place] [id number] 05/29/2025 1:00 PM CDT Office Visit [facility] Multispecialty Care - [address], [address] [place] [address] Nadja Rodriguez FNP [address] [facility] [place] [address] Morris Foreman MD [address] [place] [address] documented as of this encounter Visit Diagnoses Not on filedocumented in this encounter Care Teams Condenser Cleaner Relationship Specialty Start Date End Date Nadja Rodriguez FNP [address] [place] [address] [place], [place] [id number] PCP - General Nurse Practitioner Family 11/12/20 documented as of this encounter
--- OUTSIDE RECORDS SUMMARY | 2025-04-28 11:51 | XMS_ITS | Encounter Summary ---
Author Organization [facility] Address [address] [place] [address] Care Team Providers Care Gaming Surveillance Observer Name Role Phone Nadja Rodriguez [facility] Primary Care Provider [phone] Encounter Details Date Type Department Care Team (Late st Contact Info) Description 05/19/2023 Tower Visiont Message Enc [facility] [address] [place] [address] Nadja Rodriguez, [facility] [address] [place] [address] My results Social History Tobacco Use [...] Sex Assigned at Female 12/13/2023 10:05 AM CPS TEAM LEAD Legal Sex Female 12:24 AM CDT Gender Identity Female 12/13/2023 10:05 AM CPS TEAM LEAD Sexual Orientation Not on file documented as of this encounter Progress Notes * Dinorah Adame LPN - 05/19/2023 2:26 PM CDT Please review/advise. Pt. Has appt. Sched. 06/24/2023 with Cyrus Rodrgiuez. documented in this encounter Plan of Treatment Upcoming Encounters Date Type Department Care Team (Late st Contact Info) Description 05/11/2025 10:00 AM CDT Office Visit [facility] [address] [place] [address] Nadja Rodriguez FNP [address] [place] [address] [place] [address] 05/29/2025 1:00 PM CDT Office Visit [facility] Medical Group Multispecialty Care - [address], [address] [place] [id number] Nadja Rodriguez FNP [address] [place] [address] [place] [address] Morris Foreman MD [address] [place] [address] documented as of this encounter Visit Diagnoses Not on filedocumented in this encounter Care Teams Gaming Surveillance Observer Relationship Specialty Start Date End Date Nadja Rodriguez FNP [address] [place] [address] [place] [address] PCP - General Nurse Practitioner Family 11/12/20 documented as of this encounter
--- OUTSIDE RECORDS SUMMARY | 2025-04-28 11:51 | XMS_ITS | Encounter Summary ---
Author Organization [facility] Address [address] [place] [address] Care Team Providers Care Care Professionals Name Role Phone Nadja Rodriguez Arpita TECHNOLOGY APPLICATIONS TEACHER Primary Care Provider [phone] Encounter Details Date Type Department Care Team (Late st Contact Info) Description 01/31/2024 Emergent Game Technologiest Message Enc [facility] Medical Group Foot & Ankle [facility] [phone] [place] [address] Benoit Mccarthy, DPM [address] [place] [phone] Mri Social History Tobacco Use Types [...] Sex Assigned at Female 12/13/2023 10:05 AM TECHNOLOGY INTERN Legal Sex Female 12:24 AM CDT Gender Identity Female 12/13/2023 10:05 AM TECHNOLOGY INTERN Sexual Orientation Not on file documented as of this encounter Plan of Treatment Upcoming Encounters Date Type Department Care Team (Late st Contact Info) Description 05/11/2025 10:00 AM CDT Office Visit [facility] [address] [place] [address] Nadja Rodriguez FNP [address] [place] [address] 05/29/2025 1:00 PM CDT Office Visit [facility] Medical Group Multispecialty Care - [address], [address] [place] [address] Nadja Rodriguez FNP [address] [facility] [place] [address] Morris Foreman MD [address] [place] [address] documented as of this encounter Visit Diagnoses Not on filedocumented in this encounter Care Teams Care Professionals Relationship Specialty Start Date End Date Nadja Rodriguez FNP [address] [place] [address] [place] [address] PCP - General Nurse Practitioner Family 11/12/20 documented as of this encounter
--- OUTSIDE RECORDS SUMMARY | 2025-04-28 11:51 | XMS_ITS | Encounter Summary ---
Author Organization [facility] Address [address] [place] [address] Care Team Providers Care Bleacher Lard Name Role Phone Nadja Rodriguez [facility] Primary Care Provider [phone] [phone] Encounter Details Date Type Department Care Team (Late st Contact Info) Description 03/29/2024 MyChart Message Enc [facility] [address] [place] [address] Nadja Rodriguez, [place] [address] [place] [phone] Blood work Social History Tobacco Use Types [...] Assigned at Female 12/13/2023 10:05 AM SENIOR CORE JAVA DEVELOPER Legal Sex Female 12:24 AM CDT Gender Identity Female 12/13/2023 10:05 AM SENIOR CORE JAVA DEVELOPER Sexual Orientation Not on file documented as of this encounter Plan of Treatment Upcoming Encounters Date Type Department Care Team (Late st Contact Info) Description 05/11/2025 10:00 AM CDT Office Visit [facility] [address] [place] [address] Nadja Rodriguez FNP [address] [place], [place] [phone] 05/29/2025 1:00 PM CDT Office Visit [facility] Medical Group Multispecialty Care - [address], [address] [place] [address] Nadja Rodriguez FNP [address] [place] [address] Morris Foreman MD [address] [place] [address] documented as of this encounter Visit Diagnoses Not on filedocumented in this encounter Care Teams Bleacher Lard Relationship Specialty Start Date End Date Nadja Rodriguez FNP [address] [place] [address] [place], [place] [id number] PCP - General Nurse Practitioner Family 11/12/20 documented as of this encounter
--- OUTSIDE RECORDS SUMMARY | 2025-04-28 11:51 | XMS_ITS | Encounter Summary ---
Author Organization [facility] Address [address] [place] [address] Care Team Providers Care Pipe Inspector Name Role Phone Nadja Rodriguez Arpita DIRECTOR WORKERS COMPENSATION Primary Care Provider [phone] [phone] Encounter Details Date Type Department Care Team (Late st Contact Info) Description 01/14/2024 MyChart Message Enc [facility] Medical Group Foot & Ankle Specialists [facility] [address] [place] [address] Benoit Mccarthy, DPM [address] [place] [phone] Time sooner Social History Tobacco Use [...] Sex Assigned at Female 12/13/2023 10:05 AM CHICKEN VACCINATOR Legal Sex Female 12:24 AM CDT Gender Identity Female 12/13/2023 10:05 AM CHICKEN VACCINATOR Sexual Orientation Not on file documented as of this encounter Plan of Treatment Upcoming Encounters Date Type Department Care Team (Late Contact Info) Description 05/11/2025 10:00 AM CDT Office Visit [facility] [address] [facility] [place] [address] Nadja Rodriguez FNP [address] [facility] [place] [address] 05/29/2025 1:00 PM CDT Office Visit [facility] Medical Group Multispecialty Care - [address], [address] [place] [address] Nadja Rodriguez FNP [address] [facility] [place] [address] Morris Foreman MD [address] [place] [address] documented as of this encounter Visit Diagnoses Not on filedocumented in this encounter Care Teams Pipe Inspector Relationship Specialty Start Date End Date Nadja Rodriguez FNP [address] [place] [address] Dr [place] [phone] PCP - General Nurse Practitioner Family 11/12/20 documented as of this encounter
--- OUTSIDE RECORDS SUMMARY | 2025-04-28 11:51 | XMS_ITS | Encounter Summary ---
Author Organization [facility] Address [address] [place] [address] Care Team Providers Care Teacher Of Family And Consumer Science Name Role Phone Nadja Rodriguez [facility] Primary Care Provider [phone] [phone] Encounter Details Date Type Department Care Team (Late st Contact Info) Description 01/19/2024 MyChart Message Enc [address] [place] [place] [address] Nadja Rodriguez, [place] [address] [place] [phone] Mentally tired Social History Tobacco Use Types [...] Sex Assigned at Female 12/13/2023 10:05 AM PHARMACIST AIDE Legal Sex Female 12:24 AM CDT Gender Identity Female 12/13/2023 10:05 AM PHARMACIST AIDE Sexual Orientation Not on file documented as of this encounter Plan of Treatment Upcoming Encounters Date Type Department Care Team (Late st Contact Info) Description 05/11/2025 10:00 AM CDT Office Visit [facility] [address] [place] [address] Nadja Rodriguez FNP [address] [place], [place] [phone] 05/29/2025 1:00 PM CDT Office Visit [facility] Medical Group Multispecialty Care - [address], [address] [place] [address] Nadja Rodriguez FNP [address] [facility] [place] [address] Morris Foreman MD [address] [place] [address] documented as of this encounter Visit Diagnoses Not on filedocumented in this encounter Care Teams Teacher Of Family And Consumer Science Relationship Specialty Start Date End Date Nadja Rodriguez FNP [address] [place] [address] [address] [place], [place] [phone] PCP - General Nurse Practitioner Family 11/12/20 documented as of this encounter
--- OUTSIDE RECORDS SUMMARY | 2025-04-28 11:51 | XMS_ITS | Encounter Summary ---
Author Organization [facility] Address [address] [place] [address] Care Team Providers Care Spring Coiler Hand Name Role Phone Nadja Rodriguez [facility] Primary Care Provider [phone] [phone] Encounter Details Date Type Department Care Team (Late st Contact Info) Description 09/22/2023 MyChart Message Enc [facility] [address] [place], [place] [phone] Nadja Rodriguez, [facility] [address] [place] [phone] Stinky urin smell Social History Tobacco Use [...] Sex Assigned at Female 12/13/2023 10:05 AM PRINTING WORKER SUPERVISOR Legal Sex Female 12:24 AM CDT Gender Identity Female 12/13/2023 10:05 AM PRINTING WORKER SUPERVISOR Sexual Orientation Not on file documented as of this encounter Plan of Treatment Upcoming Encounters Date Type Department Care Team (Late Contact Info) Description 05/11/2025 10:00 AM CDT [facility] Visit [facility] [address] [place] [address] Nadja Rodriguez FNP [address] [place], [place] [phone] 05/29/2025 1:00 PM CDT Office Visit [facility] Medical Group Multispecialty Care - [address], [address] [place] [address] Nadja Rodriguez FNP [address] [place] [address] Morris Foreman MD [address] [place] [address] documented as of this encounter Visit Diagnoses Not on filedocumented in this encounter Care Teams Spring Coiler Hand Relationship Specialty Start Date End Date Nadja Rodriguez FNP [address] [place] [address] [place] [address] PCP - General Nurse Practitioner Family 11/12/20 documented as of this encounter
--- OUTSIDE RECORDS SUMMARY | 2025-04-28 11:51 | XMS_ITS | Clinical Summary ---
Author Organization [facility] Address [address] [place] [address] Care Team Providers Care Physician Coding Specialist Name Role Phone Unavailable Primary Care Provider Unavailabl e Source Comments [facility],non-owned Affiliates and Associated Physician Practices is amultiple site organization consisting of ambulatory clinics and hospital sitesin [place], [place], [place] and [place]. This disclosure is being madepursuant to the Care Everywhere program and may not contain all information available regarding this patient. Last updated 18.[facility] Allergies Active Allergy Reactions Criticality Noted Date [...] from the original note were not included. ALF PATIENT--PLEASE CALL [phone] IF TRIAGED OR ADMITTED THIS CARE PLAN IS BASED ON EVALUATION, SUBJECT TO CHANGE BASED ON ASSESSMENT. 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 Planned surveillance: [place] 10[place]27[place] [facility] [place] delivery [facility] [facility] Planned GA at delivery: Term Planned mode of delivery: TBD- Hx of x2 Care Provider: Dr. Adeline Giraldo [place] [facility] [place] consultants involved: [facility]- Larry; Neurology- Niall; Neurosurgery- Yves; Neonatology- Dontrell; Genetics- Lorene; Foundry Supervisor- Elbert care needed at : evaluation [...] studies by calling Dr. Myles Briceño at [phone]. Social Service Note: There are no social service concerns identified at this time [facility] Lead Generation: Dr. Macy Cuevas ([place], [place]) *For further coordination, please refer to [...] on file Legal Sex Female 6:26 AM QUALITY ASSURANCE ANALYST Gender Identity Not on file Sexual Orientation Not on file Last Filed Vital Signs Vital Sign Reading Time Taken Comments Blood Pressure 135/83 09/28/2013 10:35 AM QUALITY ASSURANCE ANALYST Pulse 96 09/28/2013 10:35 AM QUALITY ASSURANCE ANALYST Temperature 36.1 C (96.9 F) 06/11/2020 10:07 AM CDT Respiratory Rate - - Oxygen Saturation - - Inhaled Oxygen Concentration - - Weight 87.5 kg (193 lb) 09/28/2013 10:35 AM QUALITY ASSURANCE ANALYST Height - - Body Mass Index - [...] complete this topic Insurance MEDICAID - [place] [facility]
--- OUTSIDE RECORDS SUMMARY | 2025-04-28 11:51 | XMS_ITS | Clinical Summary ---
Author Organization [facility] Address [address] [place] [address] Care Team Providers Care Armature Balancer Name Role Phone NattymaxNadja [facility] Primary Care Provider +1 -[phone] Allergies Active Allergy Reactions Criticality Noted Date [...] Type Department Care Team Description 04/25/[address] [place] [address] Nadja Foss FNP Refill Request 04/25/[address] [place] [phone] Nadja Foss FNP Medication; Question 04/25/2025 MyChart Message Enc [address] [place] [id number] Nadja Foss FNP Renew or is it ok to take 04/24/2025 2:58 PM CDT - 04/24/2025 4:01 PM CDT Emergency [facility] Emergency Room [address] [place] [address] Zulma Judge MD Burning With Urination Discharge Disposition: Home or Self Care (Routine Discharge) 04/24/2025 Travel 03/28/2025 12:48 AM CDT - 03/28/2025 1:50 AM CDT Emergency [facility] Emergency Room [address] [place] [address] Isaac Lopez MD Urinary Symptoms Discharge Disposition: Home or Self Care (Routine Discharge) 03/28/2025 Travel 02/16/[address] [place] [address] Nadja Foss FNP Medication 02/09/[address] [place] [address] Nadja Foss FNP Referral (Need new Neurology referral.) 02/07/2025 10:40 AM CDT Office Visit [address] [place] [address] Nadja Foss FNP Follow Up (Pt here for follow up and also wants to discuss right hand tingling and right foot pain and get a referral, ); Medication Management 02/07/2025 Travel 02/05/2025 MyChart Message Enc [address] [place] [address] Nadja Foss FNP The test from Last [...] Sex Assigned at Female 12/13/2023 10:05 AM FRUIT LOADER MACHINE OPERATOR Legal Sex Female 12:24 AM CDT Gender Identity Female 12/13/2023 10:05 AM FRUIT LOADER MACHINE OPERATOR Sexual Orientation Not on file Last [...] Description 05/11/2025 10:00 AM CDT Office Visit [facility] [address] [place] [address] Nadja Foss FNP [address] [place] [phone] 05/29/2025 1:00 PM CDT Office Visit [facility] Multispecialty Care - [facility] [address] [facility], [address] [place] [id number] Nadja Foss, [address] [place], [place] [phone] Morris Foreman MD 3 [place] [address] Health Maintenance Due Date Last Done Comments [...] 10/21/2026 Hepatitis C Completed 01/31/2021 PHQ-2 (Physician [place]) Completed 11/23/2024 HPV Vaccines Aged Out No [...] COLOR (U) YELLOW 04/24/2025 3:35 PM CDT [facility] TRANSPARENCY CLOUDY 04/24/2025 3:35 PM CDT [facility] SPECIFIC GRAVITY (U) <1.005 1.000 - 1.030 04/24/2025 3:35 PM CDT [facility] U PH 6.0 5.0 - 9.0 04/24/2025 3:35 PM CDT [facility] LEUKOCYTES (U) 2+(A) NEGATIVE 04/24/2025 3:35 PM CDT [facility] NITRITES NEGATIVE NEGATIVE 04/24/2025 3:35 PM CDT [facility] PROTEIN RANDOM (U) NEGATIVE NEGATIVE 04/24/2025 3:35 PM CDT [facility] GLUCOSE (U) NEGATIVE NEGATIVE 04/24/2025 3:35 PM CDT [facility] KETONES MG/DL (U) NEGATIVE NEGATIVE 04/24/2025 3:35 PM CDT [facility] BILIRUBIN (U) NEGATIVE NEGATIVE 04/24/2025 3:35 PM CDT [facility] BLOOD (U) TRACE(A) NEGATIVE 04/24/2025 3:35 PM CDT [facility] WBC/HPF 50-100 0 - 5 /HPF 04/24/2025 3:35 PM CDT [facility] RBC/HPF 0-5 0 - 5 /HPF 04/24/2025 3:35 PM CDT [facility] EPI/HPF FEW /HPF 04/24/2025 3:35 PM CDT [facility] URINE SPECIMEN OBTAINED BY CLEAN CATCH PROCEDURE / Unknown 04/24/2025 3:01 PM CDT us Zulma Judge MD URINE ORDERABLES Final Result [facility] [address] [place] [address], [place] [phone] * (ABNORMAL) URINE BACTERIA CULTURE (03/28/2025 12:49 AM CDT) SPEC DESCRIPTION URINE CLEAN CATCH 03/28/2025 12:49 AM CDT [facility] SPECIAL REQUESTS NO SPECIAL REQUEST 03/28/2025 12:49 AM CDT [facility] CULTURE RESULT >100,000 COL/ML STAPH. SPECIES NOT STAPH. AUREUS (A) 03/30/2025 8:09 AM CDT [facility] URINE SPECIMEN OBTAINED BY CLEAN CATCH PROCEDURE / Unknown 03/28/2025 12:49 AM CDT 03/28/2025 1:05 AM CDT Narrative Organism Antibiotic Method Susceptibility Staph. species not staph. aureus NITROFURANTOIN SHAUNA (V ITEK) <=16: Sensitive Staph. species not staph. aureus LEVOFLOXACIN SHAUNA (VIT EK) 0.25: Sensitive Staph. species not staph. aureus OXACILLIN SHAUNA (VIT EK) >=4: Resistant Staph. species not staph. aureus TRIMETH-SULFAMETH. FL C (VITEK) <=10: Sensitive Staph. species not staph. aureus TETRACYCLINE SHAUNA (VIT EK) <=1: Sensitive Staph. species not staph. aureus VANCOMYCIN SHAUNA (VIT EK) <=0.5: Sensitive Isaac Lopez MD MICROBIOLOGY - GENERAL ORDERABLE S Final Result Performing Organization Address City/State/[facility] Co de Phone Number [facility] [address] [place] [address], [place] [phone] [facility] [address] [place] [address], [place] [phone] * MG SCREENING W EZEQUIEL NATY DIGI [...] change from the prior exam. Nadja Foss LANCE CREWMEMBER MAMMO Final Res ult * (ABNORMAL) LIPID PANEL (03/04/2023 11:03 AM CDT) CHOLESTEROL 175 <200.0 MG/DL 03/04/2023 11:52 AM CDT [facility] TRIGLYCERIDES 157(H) <150 MG/DL 03/04/2023 11:52 AM CDT [facility] HDL 43 >40.0 MG/DL 03/04/2023 11:52 AM CDT [facility] LDL (CALCULATED) 101(H) <100 MG/DL 03/04/2023 11:52 AM CDT [facility] NON HDL CHOLESTEROL 132(H) <130 MG/DL 03/04/2023 11:52 AM CDT [facility] CHOL/HDL RATIO 4.1 0.0 - 4.5 03/04/2023 11:52 AM CDT [facility] VLDL CALCULATION 31 5 - 55 MG/DL 03/04/2023 11:52 AM CDT [facility] LIPID INTERPRETATION 03/04/2023 11:52 AM CDT [facility] Comment: NIH CONCENSUS REPORT RECOMMENDATIONS: ADULT CHILD LOW RISK: CHOLESTEROL <200 <170 TRIGLYCERIDE <150 --- HDL >=60 --- LDL <100 <110 BORDERLINE: CHOLESTEROL 200-239 170-199 TRIGLYCERIDE 150-199 --- HDL 40-59 --- LDL 100-159 110-129 HIGH RISK: CHOLESTEROL >=240 >=200 TRIGLYCERIDE >=200 --- HDL <40 --- LDL >=160 >=130 03/04/2023 11:0 3 AM CDT Nadja Foss [facility] Final Res ult Performing Organization Address City/[facility]/ZIP Co de Phone Number [facility] [address] [place] [address], [place] [phone] * PAP SMEAR WITH HPV (10/21/2021) 10/21/2021 [facility] Scanned SCANNING Final Resu lt * HEPATITIS C ANTIBODY (01/31/2021 10:24 AM CDT) HEPATITIS C AB NON-REACTI VE NON-REACTI VE 01/31/2021 2:52 PM CDT [facility] 01/31/2021 10:2 4 AM CDT Nadja Foss [facility] Final Res ult [facility] [address] [place] [address], [place] [phone] * PAP SMEAR (SCAN ORDER) (02/23/2020) 02/23/2020 us [facility] Scanned SCANNING Final Resu lt from Last 3 Months or Most Recently Relevant to Health Maintenance Insurance MEDICAID [id number] Care Teams Armature Balancer Relationship Specialty Start Date End Date Nadja Foss FNP [address] [place] [address] [place] [address] PCP - General Nurse Practitioner Family 11/12/20
--- OUTSIDE RECORDS SUMMARY | 2025-04-28 11:51 | XMS_ITS | Encounter Summary ---
Author Organization [facility] Address [address] [place] [address] Care Team Providers Care Refrigerated Company Driver Name Role Phone Nadja Rodriguez [facility] Primary Care Provider [phone] [phone] Encounter Details Date Type Department Care Team (Late st Contact Info) Description 07/27/2023 Creative Citizenhart Message Enc [address] [place] [address] Nadja Rodriguez, [place] [address] [place] [phone] Question Social History Tobacco Use Types Packs/Day [...] Sex Assigned at Female 12/13/2023 10:05 AM COLOR CARD MAKER Legal Sex Female 12:24 AM CDT Gender Identity Female 12/13/2023 10:05 AM COLOR CARD MAKER Sexual Orientation Not on file documented as of this encounter Plan of Treatment Upcoming Encounters Date Type Department Care Team (Late st Contact Info) Description 05/11/2025 10:00 AM CDT Office Visit [facility] [address] [place] [address] Nadja Rodriguez FNP [address] [place], [place] [phone] 05/29/2025 1:00 PM CDT Office Visit [facility] Medical Group Multispecialty Care - [address], [address] [place] [address] Nadja Rodriguez FNP [address] [facility] [place] [address] Morris Foreman MD [address] [place] [address] documented as of this encounter Visit Diagnoses Not on filedocumented in this encounter Care Teams Refrigerated Company Driver Relationship Specialty Start Date End Date Nadja Rodriguez FNP [address] [place] [address] Dr [place], [place] [phone] PCP - General Nurse Practitioner Family 11/12/20 documented as of this encounter
--- OUTSIDE RECORDS SUMMARY | 2025-04-28 11:51 | XMS_ITS | Encounter Summary ---
Author Organization [facility] Address [address] [place] [address] Care Team Providers Care Paint Crew Supervisor Name Role Phone Nadja Rodriguez [facility] Primary Care Provider [phone] [phone] Encounter Details Date Type Department Care Team (Late st Contact Info) Description 05/31/2023 MyChart Message Enc [address] [place] [address] Nadja Rodriguez, [place] [address] [place] [phone] Exercise Social History Tobacco Use Types Packs/Day [...] Assigned at Female 12/13/2023 10:05 AM DESIGN ENGINEERING SPECIALIST Legal Sex Female 12:24 AM CDT Gender Identity Female 12/13/2023 10:05 AM DESIGN ENGINEERING SPECIALIST Sexual Orientation Not on file documented as of this encounter Plan of Treatment Upcoming Encounters Date Type Department Care Team (Late st Contact Info) Description 05/11/2025 10:00 AM CDT Office Visit [facility] [address] [place] [address] Nadja Rodriguze FNP [address] [place], [place] [phone] 05/29/2025 1:00 PM CDT Office Visit [facility] Medical [facility] Multispecialty Care - [address], [address] [place] [address] Nadja Rodriguez FNP [address] [facility] [place] [address] Morris Foreman MD 3 [place] [address] documented as of this encounter Visit Diagnoses Not on filedocumented in this encounter Care Teams Paint Crew Supervisor Relationship Specialty Start Date End Date Nadja Rodriguez FNP [address] [place] [address] Dr [place], [place] [phone] PCP - General Nurse Practitioner Family 11/12/20 documented as of this encounter
--- OUTSIDE RECORDS SUMMARY | 2025-04-28 11:51 | XMS_ITS | Encounter Summary ---
Author Organization [facility] Address [address] [place] [address] Care Team Providers Care Boarding House Manager Name Role Phone Nadja Rodriguez [facility] Primary Care Provider [phone] [phone] Encounter Details Date Type Department Care Team (Late st Contact Info) Description 05/19/2024 MyChart Message Enc [facility] [address] [facility] [address] [place] [phone] Nadja Rodriguez, [place] [address] [place] [phone] Fever Social History Tobacco Use Types Packs/Day [...] Sex Assigned at Female 12/13/2023 10:05 AM BETTING AGENCY COUNTER CLERK Legal Sex Female 12:24 AM CDT Gender Identity Female 12/13/2023 10:05 AM BETTING AGENCY COUNTER CLERK Sexual Orientation Not on file documented as of this encounter Plan of Treatment Upcoming Encounters Date Type Department Care Team (Late st Contact Info) Description 05/11/2025 10:00 AM CDT Office Visit [facility] [address] [place] [address] Nadja Rodriguez FNP [address] [place] [phone] 05/29/2025 1:00 PM CDT Office Visit [facility] Medical Group Multispecialty Care - [address], [address] [place] [address] Nadja Rodriguez FNP [address] [facility] [place] [address] Morris Foreman MD 3 [place] [address] documented as of this encounter Visit Diagnoses Not on filedocumented in this encounter Care Teams Boarding House Manager Relationship Specialty Start Date End Date Nadja Rodriguez FNP [address] [place] [address] Dr [place], [place] [phone] PCP - General Nurse Practitioner Family 11/12/20 documented as of this encounter
--- OUTSIDE RECORDS SUMMARY | 2025-04-28 11:51 | XMS_ITS | Encounter Summary ---
Author Organization [facility] Address [address] [place] [address] Care Team Providers Care Oyster Preparer Name Role Phone Nadja Rodriguez [facility] Primary Care Provider [phone] Encounter Details Date Type Department Care Team (Late st Contact Info) Description 01/14/2025 Recite Met Message Enc [facility] [address] [place] [address] Nadja Rodriguez, [facility] [address] [place] [address] Question Social History Tobacco Use Types [...] Sex Assigned at Female 12/13/2023 10:05 AM PRACTICE ARCHITECT Legal Sex Female 12:24 AM CDT Gender Identity Female 12/13/2023 10:05 AM PRACTICE ARCHITECT Sexual Orientation Not on file documented as of this encounter Plan of Treatment Upcoming Encounters Date Type Department Care Team (Late st Contact Info) Description 05/11/2025 10:00 AM CDT Office Visit [facility] [address] [place] [address] Nadja Rodriguez FNP [address] [place] [address] 05/29/2025 1:00 PM CDT Office Visit [facility] Medical Group Multispecialty Care - [facility] [address] [facility], [address] [place] [address] Nadja Rodriguez FNP [address] [facility] [place] [address] Morris Foreman MD [address] [place] [address] documented as of this encounter Visit Diagnoses Not on filedocumented in this encounter Care Teams Oyster Preparer Relationship Specialty Start Date End Date Nadja Rodriguez FNP [address] [facility] [place] [address] PCP - General Nurse Practitioner Family 11/12/20 documented as of this encounter
--- OUTSIDE RECORDS SUMMARY | 2025-04-28 11:51 | XMS_ITS | Encounter Summary ---
Author Organization [facility] Address [address] [place] [address] Care Team Providers Care Licensed Veterinary Technician Name Role Phone Nadja Rodriguez [facility] Primary Care Provider [phone] [phone] Encounter Details Date Type Department Care Team (Late st Contact Info) Description 04/25/2025 AB Tastyt Message Enc [facility] [address] [place] [address] Nadja Rodriguez, [facility] [address] [place] [address] Renew or is it ok to [...] Sex Assigned at Female 12/13/2023 10:05 AM OTHER SPORTS COACH OR INSTRUCTOR Legal Sex Female 12:24 AM CDT Gender Identity Female 12/13/2023 10:05 AM OTHER SPORTS COACH OR INSTRUCTOR Sexual Orientation Not on file documented as of this encounter Plan of Treatment Upcoming Encounters Date Type Department Care Team (Late st Contact Info) Description 05/11/2025 10:00 AM CDT Office Visit [facility] [address] [place] [address] Nadja Rodriguez FNP [address] [place] [address] 05/29/2025 1:00 PM CDT Office Visit [facility] Medical Group Multispecialty Care - [facility] 3 [facility], [address] [place] [address] Nadja Rodriguez FNP [address] [facility] [place] [address] Morris Foreman MD [address] [place] [address] documented as of this encounter Visit Diagnoses Not on filedocumented in this encounter Care Teams Licensed Veterinary Technician Relationship Specialty Start Date End Date Nadja Rodriguez FNP [address] [place] [address] [place] [address] PCP - General Nurse Practitioner Family 11/12/20 documented as of this encounter
--- NOTE | 2025-04-28 12:19 | ED_ITS ---
HPI - General Adult General Chief complaint: Extremity Injury, Upper Stated complaint: bilat wrist pain Time Seen by Provider: 04/28/25 11:35 History of Present Illness HPI narrative: 44-year-old female presenting to the emergency department for evaluation for bilateral wrist pain. Patient reports she had a fall on 04/25 landing on bilateral wrist. Patient reports she has had worsening tingling at the wrists and pain particularly at the right wrist. Patient does have a history of carpal tunnel. Patient has been taking Tylenol for pain control without significant improvement. Patient reports the pain was worse while sleeping. Related Data Home Medications ?Medication ?Instructions ?Recorded ?Confirmed ?Last Taken ?Type olmesartan 5 mg tablet 5 mg DAILY 09/11/24 02/10/25 Unknown History phentermine 15 mg capsule 15 mg DAILY 09/11/24 02/10/25 Unknown History levothyroxine 75 mcg capsule 75 mcg PO DAILY 02/05/25 02/10/25 Unknown History valacyclovir 1 gram tablet 1,000 mg PO .PRN 02/05/25 02/10/25 Unknown History Allergies Allergy/AdvReac Type Severity Reaction Status Date / Time latex Allergy Mild Rash Verified 04/28/25 11:30 Penicillins Allergy Mild Hives / Verified 04/28/25 11:30 Red Face Sulfa (Sulfonamide Allergy Mild Rash Verified 04/28/25 11:30 Antibiotics) Review of Systems Review of Systems: All systems reviewed & are unremarkable except as noted in HPI and below PMFSH Family History Family History Mother Hypertension Father High cholesterol Daughter MRSA (methicillin resistant Staphylococcus aureus) Mother Patient's mother is in good health Cerebrovascular accident Father Patient's father is in good health Sibling Patient's brother is in good health Social History Social History Smoking status: Never smoker Alcohol intake: never Substance use: never Do You Feel Safe in your Home?: Yes Lack of Transportation: No Lack of Food: Sometimes True Current Housing: I Have Housing Concerned About Future Housing: No Difficulty Paying Gas/Electric Bills: YES Difficulty Paying for Meds: No Currently Unemployed: No Education: High School Diploma/GED Difficulty w/ Childcare or Family Care: No Living arrangements: with family Gender identity (if verbalized by the patient): Female Sexual Orientation (if Verbalized by the Patient): Straight or Heterosexual Spiritual care concerns: No Exam Narrative: APPEARANCE: Well appearing, no pain, no distress, well-nourished. HEAD: normocephalic, atraumatic. EYES: PERRLA/EOMI, conjunctivae clear. NOSE: Normal no drainage EARS:TMS clear with good light reflex. THROAT: Pharynx clear, no exudate. NECK: Supple. No adenopathy, no masses. RESPIRATORY: Airway patent, respirations nonlabored. Clear to auscultation bilaterally, no rales, rhonchi, wheezing. CARDIOVASCULAR: Regular rate and rhythm without murmurs rubs or gallops. ABDOMINAL: Soft, nontender, nondistended, normal bowel sounds MUSCULOSKELETAL: Tenderness over the carpal tunnel of the right hand, while bruising over the right thenar eminence, neurovascularly intact with strong cap refill. NEURO: Alert. Cranial nerves II through XII intact. Good gait. Good coordination SKIN: Warm, dry. Normal Color Course Vital Signs Vital signs: Vital Signs Temperature 97.4 F L 04/28/25 11:21 Pulse Rate 72 04/28/25 11:21 Respiratory Rate 20 04/28/25 11:21 Blood Pressure 121/66 04/28/25 11:21 Pulse Oximetry 100 04/28/25 11:21 Oxygen Delivery Room Air 04/28/25 11:21 Temperature 97.4 F L 04/28/25 11:21 Pulse Rate 72 04/28/25 11:21 Respiratory Rate 20 04/28/25 11:21 Blood Pressure 121/66 04/28/25 11:21 Pulse Oximetry 100 04/28/25 11:21 Oxygen Delivery Room Air 04/28/25 11:21 Medical Decision Making MDM Narrative Medical decision making narrative: [age] old female presenting to the emergency department for evaluation for bilateral wrist pain. X-rays were negative for acute fracture dislocation. Patient does have some bruising over the right thenar eminence. Patient does have history of carpal tunnel syndrome. Patient states she is unable to take anti-inflammatories. Patient states ice be the symptoms worse. Patient will be recommended to use a fall or brace particularly on the right. Patient was encouraged close follow-up with her physicians. Differential Diagnosis Differential Diagnosis: hAnd fracture, hand contusion, carpal tunnel syndrome, compartment syndrome Vital Signs Vital Signs: Vital Signs Temperature 97.4 F L 04/28/25 11:21 Pulse Rate 72 04/28/25 11:21 Respiratory Rate 20 04/28/25 11:21 Blood Pressure 121/66 04/28/25 11:21 Pulse Oximetry 100 04/28/25 11:21 Oxygen Delivery Room Air 04/28/25 11:21 Temperature 97.4 F L 04/28/25 11:21 Pulse Rate 72 04/28/25 11:21 Respiratory Rate 20 04/28/25 11:21 Blood Pressure 121/66 04/28/25 11:21 Pulse Oximetry 100 04/28/25 11:21 Oxygen Delivery Room Air 04/28/25 11:21 Imaging Data Radiologist's impression: Impressions Wrist X-Ray 04/28/25 11:58 IMPRESSION: 1: NO ACUTE BONE OR JOINT ABNORMALITY IDENTIFIED. Wrist X-Ray 04/28/25 12:08 IMPRESSION: 1: NO ACUTE BONE OR JOINT ABNORMALITY IDENTIFIED. Discharge Plan Discharge Clinical Impression: Contusion of right wrist, Contusion of wrist, left Patient Disposition: Home Condition: Stable Instructions: Antibiotic Form, Carpal Tunnel Syndrome (DC), Paresthesia (ED) Additional Instructions: Your x-rays were negative for acute fractures. Your exam is consistent with a bruise or contusion to the right wrist. Wear a volar brace/cock-up splint as directed. Have close follow-up with your physicians. If you have any worsening symptoms then please call or return to the emergency department. Patient Language: Belarusian Prescriptions: No Action phentermine 15 mg capsule 15 mg DAILY olmesartan 5 mg tablet 5 mg DAILY levothyroxine 75 mcg capsule 75 mcg PO DAILY valacyclovir 1 gram tablet 1,000 mg PO .PRN Follow-up/Referrals: Michael,ALANA Saez [Primary Care Provider] -
== END 2025-04-28 12:56 | disposition home or self-care (01) ==
PROVIDERS: Emergency Provider Emergency Medicine; PCP Registered Nurse
DX: S60.212A Contusion of left wrist, initial encounter (principal); S60.211A Contusion of right wrist, initial encounter; W19.XXXA Unspecified fall, initial encounter
CPT/HCPCS: 73110; 99284

== ENCOUNTER 2025-07-11 10:07 | Outpatient (CLI) | payer BC, MEDICAID, SELFPAY ==
--- NOTE | 2025-07-11 10:00 | NEURO_ITS ---
Impression: # Complains of numbness of hands. Non-diabetic. # Bilateral Carpal Tunnel Syndrome, right more than left. # Bilateral Ulnar Neuropathy across the elbow, right more than left. # Normal Needle/EMG exam. Nerve Conduction Studies ?Stim Site NR Peak (ms) P-T Amp (?V) Site1 Site2 Delta-P (ms) Dist (cm) Joe (m/s) Left Median Anti Sensory (2-3nd Digit) Wrist ? 4.0 37.6 Wrist 2-3nd Digit 4.0 14.0 35 Wrist ? 4.1 36.7 Wrist 2-3nd Digit 4.0 14.0 35 Right Median Anti Sensory (2-3nd Digit) Wrist ? 4.8 34.1 Wrist 2-3nd Digit 4.8 14.0 29 Wrist ? 5.6 33.7 Wrist 2-3nd Digit 4.8 14.0 29 Left Radial Anti Sensory (Base 1st Digit) Wrist ? 1.8 36.3 Wrist Base 1st Digit 1.8 0.0 Right Radial Anti Sensory (Base 1st Digit) Wrist ? 2.0 33.2 Wrist Base 1st Digit 2.0 0.0 Left Ulnar Anti Sensory (5th Digit) Wrist ? 2.6 34.4 Wrist 5th Digit 2.6 14.0 54 Right Ulnar Anti Sensory (5th Digit) Wrist ? 2.6 33.7 Wrist 5th Digit 2.6 14.0 54 ?Stim Site NR Onset (ms) O-P Amp (mV) Site1 Site2 Delta-0 (ms) Dist (cm) Joe (m/s) Left Median Motor (Abd Poll Brev) Wrist ? 4.8 2.7 Elbow Wrist 4.3 26.0 60 Elbow ? 9.1 2.5 Right Median Motor (Abd Poll Brev) Wrist ? 5.0 3.2 Elbow Wrist 5.2 27.0 57 Elbow ? 12.6 2.9 Left Ulnar Motor (Abd Dig Minimi) Wrist ? 3.0 6.5 A Elbow Wrist 4.6 26.0 57 A Elbow ? 7.6 6.2 B Elbow Wrist 3.3 20.0 61 B Elbow ? 6.3 4.0 Right Ulnar Motor (Abd Dig Minimi) Wrist ? 2.5 8.1 A Elbow Wrist 5.2 27.0 52 A Elbow ? 7.7 6.9 B Elbow Wrist 3.3 18.0 55 B Elbow ? 5.8 6.9 F Wave Studies ?NR F-Lat (ms) L-R F-Lat (ms) Left Median (Mrkrs) (Abd Poll Brev) ? 27.60 6.32 Right Median (Mrkrs) (Abd Poll Brev) ? 33.92 6.32 Left Ulnar (Mrkrs) (Abd Dig Min) ? 26.36 1.29 Right Ulnar (Mrkrs) (Abd Dig Min) ? 25.08 1.29 Electromyography ?Side Muscle Nerve Root Ins Act Fibs Amp Dur Recrt Comment Right 1stDorInt Ulnar C8-T1 Nml Nml Nml Nml Nml Right Ext Indicis Radial (Post Int) C7-8 Nml Nml Nml Nml Nml Right Ext Digitorum Radial (Post Int) C7-8 Nml Nml Nml Nml Nml Right BrachioRad Radial C5-6 Nml Nml Nml Nml Nml Right PronatorTeres Median C6-7 Nml Nml Nml Nml Nml Right Abd Poll Brev Median C8-T1 Nml Nml Nml Nml Nml Right ABD Dig Min Ulnar C8-T1 Nml Nml Nml Nml Nml Right FlexPolLong Median (Ant Int) C7-8 Nml Nml Nml Nml Nml Right Abd Poll Long Radial (Post Int) C7-8 Nml Nml Nml Nml Nml Left 1stDorInt Ulnar C8-T1 Nml Nml Nml Nml Nml Left Ext Indicis Radial (Post Int) C7-8 Nml Nml Nml Nml Nml Left Ext Digitorum Radial (Post Int) C7-8 Nml Nml Nml Nml Nml Left BrachioRad Radial C5-6 Nml Nml Nml Nml Nml Left PronatorTeres Median C6-7 Nml Nml Nml Nml Nml Left Abd Poll Brev Median C8-T1 Nml Nml Nml Nml Nml Left ABD Dig Min Ulnar C8-T1 Nml Nml Nml Nml Nml Left FlexPolLong Median (Ant Int) C7-8 Nml Nml Nml Nml Nml Left Abd Poll Long Radial (Post Int) C7-8 Nml Nml Nml Nml Nml
--- OUTSIDE RECORDS SUMMARY | 2025-07-11 10:49 | XMS_ITS | Clinical Summary ---
Author Organization [facility] Address [address] [place] [address] Care Team Providers Care Permanent Mold Supervisor Name Role Phone Unavailable Primary Care Provider Unavailabl e Source Comments [facility],non-owned Affiliates and Associated Physician Practices is amultiple site organization consisting of ambulatory clinics and hospital sitesin [place], [place], [place] and [place]. This disclosure is being madepursuant to the Care Everywhere program and may not contain all information available regarding this patient. Last updated 18.[facility] Allergies Active Allergy Reactions Criticality Noted Date [...] from the original note were not included. PRISON PATIENT--PLEASE CALL [phone] IF TRIAGED OR ADMITTED THIS CARE PLAN IS BASED ON EVALUATION, SUBJECT TO CHANGE BASED ON ASSESSMENT. 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 Planned surveillance: [place] [place] [facility] Planned [place] at delivery: Term Planned mode of delivery: TBD- Hx of x2 Care Provider: Dr. Adeline Giraldo [place] [facility] [place] consultants involved: [facility]- Larry; Neurology- Niall; Neurosurgery- Yves; Neonatology- Dontrell; Genetics- Lorene; Production Operator- Elbert care needed at : evaluation Planned [...] studies by calling Dr. Myles Briceño at [phone]. Social Service Note: There are no social service concerns identified at this time Burn Out Tender Lace: Dr. Macy Cuevas ([place], [place]) *For further coordination, please refer to [...] on file Legal Sex Female 6:26 AM TECHNOLOGY DIRECTOR Gender Identity Not on file Sexual Orientation Not on file Last Filed Vital Signs Vital Sign Reading Time Taken Comments Blood Pressure 135/83 09/28/2013 10:35 AM TECHNOLOGY DIRECTOR Pulse 96 09/28/2013 10:35 AM TECHNOLOGY DIRECTOR Temperature 36.1 C (96.9 F) 06/11/2020 10:07 AM CDT Respiratory Rate - - Oxygen Saturation - - Inhaled Oxygen Concentration - - Weight 87.5 kg (193 lb) 09/28/2013 10:35 AM TECHNOLOGY DIRECTOR Height - - Body Mass Index - - Plan of Treatment Health Maintenance Due Date Last Done Comments LIPID TESTING 1980 MAMMOGRAM 1980 HIV SCREENING 1995 HEPATITIS C SCREENING 07/16/1998 DTAP/TDAP/TD VACCINES (1 - Tdap) 1999 HEPATITIS B VACCINE (1 of 3 - 19+ 3-dose series) 1999 HPV VACCINE (1 - 3-dose SCDM series) 2007 DEPRESSION SCREENING 10/11/2024 COVID-19 VACCINE (1 - 2023-2 5 season) 2025 INFLUENZA VACCINE (#1) 2025 ZOSTER VACCINE (1 [...]
== END 2025-07-11 10:08 | disposition home or self-care (01) ==
LOC: ANHNEURO 10:08
PROVIDERS: PCP Registered Nurse; Visit Provider Plastic Surgery
DX: G56.03 Carpal tunnel syndrome, bilateral upper limbs (principal); G56.23 Lesion of ulnar nerve, bilateral upper limbs
CPT/HCPCS: 95886; 95911